=== PATIENT | male | born 1965 | race African-American/Black ===

== ENCOUNTER 2020-02-26 01:53 | Outpatient (CLI) | payer BC, SELFPAY ==
[2020-02-26 18:52] LABS: SARS-CoV-2 RNA PCR Negative
== END 2020-02-26 01:54 | disposition home or self-care (01) ==
LOC: ANHCOVIDDT 01:54
PROVIDERS: Visit Provider Internal Medicine Gastroenterology
DX: Z01.818 Encounter for other preprocedural examination (principal); Z20.828 Contact with and (suspected) exposure to other viral communicable diseases
CPT/HCPCS: 87635; C9803; U0003

== ENCOUNTER 2020-02-29 00:59 | Day surgery (SDC) | payer BC, SELFPAY ==
[2020-02-20 13:47] VITALS: BMI 20.1
--- NOTE | 2020-02-28 12:57 | WPDANESEPPF ---
Anes - Initial Pre Proc Eval Procedure: Operation Date: 02/29/20 14:30 Proposed Procedures p Screening Colonoscopy - Casa Patel MD Date/Time: 02/28/20 12:57 Surgeon: Casa Patel MD Pre Op Diagnosis: Neoplasm Screening Patient Data Age: 54 Gender: M Height: 1.78 m Weight: 63.6 kg Allergies Allergy/AdvReac Type Severity Reaction Status Date / Time No Known Allergies Allergy Verified 02/29/20 12:54 Home Medications Medication Instructions Recorded Confirmed Type acetaminophen 500 mg tablet 500 mg PO Q6H PRN 12/29/19 02/29/20 History gabapentin 300 mg capsule 300 mg PO BID #60 cap 01/26/20 02/29/20 Rx metoprolol succinate 25 mg 25 mg PO DAILY #30 tablet 01/30/20 02/29/20 Rx tablet,extended release 24 hr Patient hx anesthesia problems: none Family hx anesthesia problems: none PMFSH Past Medical History Medical History (Updated 02/28/20 @ 13:00 by Anam Crystal MD) Essential hypertension ETOH abuse Neuropathic pain Tobacco abuse Social History Social History Smoking packs per day: 1 Smoking cigarettes per day: 20.0 Years smoked: 38 Smoking pack-years: 38.00 Smoking status: Current every day smoker Tobacco type: cigarettes Alcohol intake: current Drinks per week: 50 Alcohol use details: DRINKS BEER AND HARD LIQUOR EVERYDAY Substance use: current Substance use type: marijuana Last use: USED 02/16/2020 Living arrangements: alone Gender identity (if verbalized by the patient): Male Spiritual care concerns: No Agree to blood products: Yes Anes - Eval Final PreProcedure Day of Procedure 02/28/20 12:57 Patient weight: normal Heart: regular rate and rhythm Lungs: clear to auscultation and normal air movement Airway: Mallampati scale class II Neurological: alert and oriented Last oral intake: >/= 8 hours ASA classification: III Emergent: no Anesthetic plan: proceed Anesthesia type and monitoring: general GIVS Informed Consent: The patient's anesthetic plan and its attendant risks and benefits were discussed with the patient/family/POA. Questions were solicited and answers provided to the satisfaction of the patient/family/POA.
[2020-02-29 12:56] VITALS: BP 168/86; PULSE 128; RESP 17; TEMP 36.6; O2SAT 99; BMI 20.9
[2020-02-29] MEDS: LACTATED RINGERS 1,000 ML 150 ML IV CONT (13:31)
--- NOTE | 2020-02-29 13:42 | PM.HPGS ---
History of Present Illness History of Present Illness Consent: Risks, benefits, and alternatives have been discussed and questions answered. Patient agrees to proceed with procedure. Chief complaint: Neoplasm Screening Narrative: Torsten Pardo is a 54 year old male here for first screening colonoscopy Review of Systems Constitutional: Constitutional: Denies headache(s) and Denies weakness Eyes: Eyes: Denies blurry vision ENT: Reports Normal hearing present, Denies headache(s) and Denies neck pain Cardiovascular: Cardiovascular: Denies chest pain and Denies dyspnea Respiratory: Respiratory: Denies dyspnea Gastrointestinal: Gastrointestinal: Reports no additional gastrointestinal complaints Genitourinary: Genitourinary: Denies dysuria Musculoskeletal: Musculoskeletal: Denies neck pain Integumentary/Breasts: Skin/Breast: Denies dry skin Neurologic: Reports Normal hearing present, Denies headache(s) and Denies weakness Psychiatric: Psychiatric: Denies anxiety Endocrine: Endocrine: Denies change in body appearance Hematologic/Lymphatic: Hematologic/Lymphatic: Denies easy bleeding Allergic/Immunologic: Allergic/Immunologic: Denies urticaria FOR[facility]LY [facility], [facility] Past Medical History Medical History (Updated 02/29/20 @ 13:43 by Casa Patel MD) Colon cancer screening Essential hypertension ETOH abuse Neuropathic pain Tobacco abuse Social History Social History Smoking packs per day: 1 Smoking cigarettes per day: 20.0 Years smoked: 38 Smoking pack-years: 38.00 Smoking status: Current every day smoker Tobacco type: cigarettes Alcohol intake: current Drinks per week: 50 Alcohol use details: DRINKS BEER AND HARD LIQUOR EVERYDAY Substance use: current Substance use type: marijuana Last use: USED 02/16/2020 Living arrangements: alone Gender identity (if verbalized by the patient): Male Spiritual care concerns: No Agree to blood products: Yes Meds Home Medications and Allergies Home Medications Medication Instructions Recorded Confirmed Type acetaminophen 500 mg tablet 500 mg PO Q6H PRN 12/29/19 02/29/20 History gabapentin 300 mg capsule 300 mg PO BID #60 cap 01/26/20 02/29/20 Rx metoprolol succinate 25 mg 25 mg PO DAILY #30 tablet 01/30/20 02/29/20 Rx tablet,extended release 24 hr Allergies Allergy/AdvReac Type Severity Reaction Status Date / Time No Known Allergies Allergy Verified 02/29/20 12:54 Vital Signs Vital Signs - 24 hr 02/29/20 12:56 Temperature 97.9 F Pulse Rate 128 H Respiratory Rate 17 Blood Pressure 168/86 H Pulse Oximetry 99 Exam Const: General: comfortable and no acute distress HENMT: General nose exam: Normal nares present Eyes: General: appearance normal, both eyes and all related structures Neck: Neck: no JVD Resp: Auscultation: clear to auscultation bilaterally Cardio: Rate: regular rate Rhythm: regular rhythm GI: Inspection: non-distended GI Palp: Yes Soft to palpation Skin: General skin exam: normal color Neuro: General: gait normal Speech: normal speech Extrem: General: normal to inspection Psych: Mental Status: mental status grossly normal Assessment and Plan Assessment and plan (1) Colon cancer screening: Code(s): Z12.11 - Encounter for screening for malignant neoplasm of colon Status: Acute Assessment and Plan: will proceed with colonoscopy
[2020-02-29 14:07] VITALS: BP 116/80; PULSE 112; RESP 20; O2SAT 99
[2020-02-29 14:17] VITALS: BP 126/91; PULSE 82; RESP 13; O2SAT 100
[2020-02-29 14:27] VITALS: BP 167/105; PULSE 85; RESP 14; O2SAT 100
== END 2020-02-29 15:04 | disposition home or self-care (01) ==
PROVIDERS: PCP Internal Medicine; Visit Provider Internal Medicine Gastroenterology
PROC: 0DJD8ZZ Inspection of Lower Intestinal Tract, Via Natural or Artificial Opening Endoscopic (ICD-10-PCS; CPT 45378; principal; 2020-02-29 14:30)
DX: Z12.11 Encounter for screening for malignant neoplasm of colon (principal); K57.30 Diverticulosis of large intestine without perforation or abscess without bleeding; K64.8 Other hemorrhoids; I10 Essential (primary) hypertension; F17.210 Nicotine dependence, cigarettes, uncomplicated; F12.90 Cannabis use, unspecified, uncomplicated
CPT/HCPCS: 45378; J2704; J7120

== ENCOUNTER 2020-07-26 11:20 | Outpatient (CLI) | payer BC, SELFPAY ==
--- NOTE | ~2020-07-26 | CT_ITS ---
EXAMINATION: CT lung screening DATE: 07/26/2020 11:55 INDICATION: Personal history of tobacco dependence, current smoker with 38 pack year history TECHNIQUE: Computed tomography (CT) of the chest was performed without intravenous contrast. The dose -length product (DLP) was 72.23 mGy-cm. Automated exposure control and iterative reconstruction techn ique were employed. COMPARISON: None FINDINGS: There is a 2.8 x 2.7 cm spiculated nodule of the lingula. There is mild emphysema. There is no pleural effusion or pneumothorax. No pathologically enlarged thoracic lymph nodes are identified. The heart size is normal. The visualized osseous structures are unremarkable. IMPRESSION: 1. Lung-RADS category 4B: Findings for which additional diagnostic testing and/or tissue sampling is recommended. These findings and recommendations were discussed with Gabe Campos APRN at 1440 hours on 07/27/19 21. Reviewed, dictated and finalized at location A. IMPRESSION: 1. Lung-RADS category 4B: Findings for which additional diagnostic testing and/ or tissue sampling is recommended. These findings and recommendations were discussed with Gabe Campos APRN a t 1440 hours on 07/26/2020.
[2020-07-26 12:12] LABS: Basophils Absolute Auto 0.1 K/mm3 (0.0-0.1); Basophils Percent Auto 1.4 % (0.2-1.2); Eosinophils Absolute Auto 0.1 K/mm3 (0-0.3); Eosinophils Percent Auto 0.8 % (0-4.4); Hematocrit 41.6 % (42.0-52.0); Hemoglobin 14.3 g/dL (14.0-18.0); Immature Granulocyte Absolute 0.03 K/mm3 (0.00-0.031); Immature Granulocyte Percent A 0.5 % (0-0.5); Lymphocytes Percent Auto 46.2 % (18.3-44.2); Mean Corpuscular HGB Conc 34.4 g/dl (32-36); Mean Corpuscular Hemoglobin 37.9 pg (26-34); Mean Corpuscular Volume 110.3 fl (80-100); Mean Platelet Volume 8.9 fl (7.4-10.4); Monocytes Absolute Auto 0.6 K/mm3 (0.1-0.6); Monocytes Percent Auto 8.5 % (2.6-8.5); Neutrophils Absolute Auto 2.8 K/mm3 (1.3-6.7); Neutrophils Percent Auto 42.6 % (45.5-73.1); Platelet Count Result 156 k/mm3 (150-375); Red Blood Count 3.77 M/mm3 (4.6-6.20); White Blood Count 6.5 K/mm3 (4.5-10.0)
[2020-07-26 12:35] LABS: LDL Cholesterol Direct 59 mg/dL
[2020-07-26 12:37] LABS: Alanine Aminotransferase 95 U/L (4-50); Albumin Level 4.2 g/dL (3.5-5.1); Alkaline Phosphatase 128 U/L (38-126); Anion Gap 11 mmol/L (8-16); Aspartate Amino Transferase 111 U/L (17-59); Bilirubin,Total 0.5 mg/dL (0.2-1.3); Blood Urea Nitrogen 3 mg/dL (9-20); Calcium 9.6 mg/dL (8.4-10.2); Carbon Dioxide 24 mmol/L (22-30); Chloride 104 mmol/L (98-107); Cholesterol 194 mg/dL (0-200); Estimated Glomerular Filt Rate > 60; Glucose 97 mg/dL (75-110); Potassium 4.2 mmol/L (3.4-5.0); Sodium 139 mmol/L (137-145); Triglycerides 95 mg/dL (<150)
[2020-07-26 12:55] LABS: Prostate Specific Antigen 1.4 ng/mL (< OR = 4.0)
[2020-07-26 12:58] LABS: HDL Direct 120 mg/dL
== END 2020-07-26 11:21 | disposition home or self-care (01) ==
PROVIDERS: PCP Internal Medicine; Visit Provider Nurse Practitioner
DX: M79.2 Neuralgia and neuritis, unspecified (principal); F10.10 Alcohol abuse, uncomplicated; I10 Essential (primary) hypertension; R00.0 Tachycardia, unspecified; Z13.220 Encounter for screening for lipoid disorders; Z12.5 Encounter for screening for malignant neoplasm of prostate; Z87.891 Personal history of nicotine dependence; R91.8 Other nonspecific abnormal finding of lung field
CPT/HCPCS: 36415; 71271; 80053; 80061; 82607; 84153; 84443; 85025; G0103

== ENCOUNTER 2020-08-01 10:43 | Outpatient (CLI) | payer BC, SELFPAY ==
--- NOTE | ~2020-08-01 | PE_ITS ---
EXAMINATION: PET skull to mid thigh DATE: 08/01/2020 12:43 INDICATION: Solitary pulmonary nodule TECHNIQUE: Blood glucose level was 61 mg/dL. 10.197 mCi of 18-fluorodeoxyglucose (18-FDG) was adminis tered i.v. Low dose computed tomography (CT) images were acquired from the base of the brain to the p roximal thighs for attenuation correction and anatomic localization. Positron emission tomography (PE T) images were acquired in the same distribution beginning 52 minutes after injection. Images includi ng fused PET/CT images were reconstructed in axial, coronal, and sagittal planes. Automated exposure control technique was employed. The dose-length product was 374.70mGy-cm. COMPARISON: Chest CT dated 08/05/2020 FINDINGS: Head/neck: There is symmetric increased activity in the oral cavity, palatine tonsils, laryngeal muscles and ocu lar muscles without CT correlate, likely physiologic. No pathologically enlarged cervical lymphadenop athy or suspicious foci of increased FDG uptake in the visualized head or neck. Chest: Mild emphysema. Moderate increased FDG uptake with maximal SUV of 4.9 and associated with a 2.9 x 1.9 cm spiculated mass at the lingula. Remainder of the lungs are clear. No pleural effusion. Heart size is normal. No pericardial effusion. Thoracic aorta is normal in caliber. No pathologically enlarged or FDG avid thoracic lymphadenopathy. Abdomen/pelvis/proximal thighs: Physiologic renal accumulation and excretion of FDG activity in the kidneys, bladder and along portio ns of ureters. Normal degree and heterogenous pattern of increased uptake throughout the liver withou t radiologic correlate or dominant FDG avid lesion. The gallbladder, pancreas, spleen and bilateral a drenal glands are normal. Mild uptake scattered throughout the bowels without radiologic correlate, a lso likely physiologic. No other abnormal foci of increased FDG uptake or pathologically enlarged lym phadenopathy in the abdomen, pelvis or proximal thighs. Musculoskeletal: Chronic mild anterior wedging at T11 and T12. No suspicious lytic, blastic or FDG avid bone lesions. IMPRESSION: 1. Moderate FDG uptake associated with a 2.9 x 1.9 cm spiculated mass at the lingula which could be m alignant, infectious or inflammatory in etiology. Recommend CT-guided percutaneous biopsy. 2. Otherwise unremarkable study with no evident metastatic disease. Reviewed, dictated and finalized at location A. IMPRESSION: 1. Moderate FDG uptake associated with a 2.9 x 1.9 cm spiculated mass at the li ngula which could be malignant, infectious or inflammatory in etiology. Recomme nd CT-guided percutaneous biopsy. 2. Otherwise unremarkable study with no evident metastatic disease.
[2020-08-01 11:05] LABS: Glucose Point of Care 61 (65-105)
== END 2020-08-01 10:44 | disposition home or self-care (01) ==
PROVIDERS: PCP Internal Medicine; Visit Provider Nurse Practitioner
DX: R91.1 Solitary pulmonary nodule (principal); Z72.0 Tobacco use
CPT/HCPCS: 78815; 82948; A9552

== ENCOUNTER → 2020-08-03 03:38 | Outpatient (CLI) | payer BC, SELFPAY ==
[2020-08-03 19:43] LABS: SARS-CoV-2 RNA PCR Negative
== END ==
PROVIDERS: PCP Internal Medicine; Visit Provider Nurse Practitioner
DX: Z01.812 Encounter for preprocedural laboratory examination (principal); Z20.822 Contact with and (suspected) exposure to COVID-19
CPT/HCPCS: C9803; U0003; U0005

== ENCOUNTER → 2020-08-10 01:45 | Outpatient (CLI) | payer BC, SELFPAY ==
[2020-08-10 19:56] LABS: SARS-CoV-2 RNA PCR Negative
== END ==
PROVIDERS: PCP Internal Medicine; Visit Provider Nurse Practitioner
DX: Z01.812 Encounter for preprocedural laboratory examination (principal); Z20.822 Contact with and (suspected) exposure to COVID-19
CPT/HCPCS: C9803; U0003; U0005

== ENCOUNTER 2020-08-13 09:58 | Outpatient (CLI) | payer BC, SELFPAY ==
[2020-08-05 09:39] VITALS: BMI 21.5
--- NOTE | ~2020-08-13 | CT_ITS ---
EXAMINATION: CT diagnostic chest wo con DATE: 08/13/2020 14:59 INDICATION: FOLLOW UP LEFT LUNG MASS TECHNIQUE: Computed tomography (CT) of the chest was performed without intravenous contrast as part o f formulation chemist imaging for a planned CT-guided percutaneous left lung biopsy. Given the improvement in the n odule since the prior study and infection etiology was favored and the planned biopsy was deferred. I discussed this with the patient as well as the ordering nurse practitioner Gabe Campos. The dose-l ength product was 149 mGy-cm. COMPARISON: 08/05/2020 FINDINGS: Significant interval decrease in size of a previously 3.3 x 2.4 x 2.4 cm spiculated subpleural mass i n the lingula. The lesion now has a more thickened bandlike configuration which measures up to jack l of 9 mm in thickness and now spares the immediate subpleural lung. The interval improvement would b e most consistent with an infectious or inflammatory etiology and the planned biopsy was deferred. Mi nimal dependent atelectasis in the bilateral lower lobes. Mild emphysema. Heart size is normal. No pe ricardial or pleural effusion. Visualized bones and upper abdomen are unremarkable. IMPRESSION: 1. Significant decrease in size of the previously more masslike opacity at the lingula now appearing as a thinner bandlike opacity with interval evolution strongly favoring an infectious/inflammatory et iology. Planned biopsy was deferred and would recommend additional 3 month follow-up low-dose noncont rast chest CT. Reviewed, dictated and finalized at location A. IMPRESSION: 1. Significant decrease in size of the previously more masslike opacity at the lingula now appearing as a thinner bandlike opacity with interval evolution str ongly favoring an infectious/inflammatory etiology. Planned biopsy was deferred and would recommend additional 3 month follow-up low-dose noncontrast chest CT .
[2020-08-13 10:20] LABS: Basophils Absolute Auto 0.1 K/mm3 (0.0-0.1); Basophils Percent Auto 0.9 % (0.2-1.2); Eosinophils Percent Auto 0.6 % (0-4.4); Hemoglobin 13.2 g/dL (14.0-18.0); Immature Granulocyte Absolute 0.02 K/mm3 (0.00-0.031); Immature Granulocyte Percent A 0.3 % (0-0.5); Lymphocytes Absolute Auto 2.32 K/mm3 (0.9-3.2); Lymphocytes Percent Auto 35.3 % (18.3-44.2); Mean Corpuscular HGB Conc 34.7 g/dl (32-36); Mean Corpuscular Hemoglobin 37.5 pg (26-34); Mean Platelet Volume 9.2 fl (7.4-10.4); Monocytes Absolute Auto 0.8 K/mm3 (0.1-0.6); Monocytes Percent Auto 11.6 % (2.6-8.5); Neutrophils Absolute Auto 3.4 K/mm3 (1.3-6.7); Neutrophils Percent Auto 51.3 % (45.5-73.1); Platelet Count Result 175 k/mm3 (150-375); Red Blood Count 3.52 M/mm3 (4.6-6.20); Red Cell Distribution Width 12.4 % (11.5-14.5); White Blood Count 6.6 K/mm3 (4.5-10.0)
[2020-08-13 10:30] LABS: INR 0.9
== END 2020-08-13 09:59 | disposition home or self-care (01) ==
PROVIDERS: Radiology Diagnostic Radiology; PCP Internal Medicine; Visit Provider Nurse Practitioner
DX: R91.1 Solitary pulmonary nodule (principal)
CPT/HCPCS: 36415; 71250; 85025; 85610

== ENCOUNTER 2020-10-10 09:27 | Outpatient (CLI) | payer BC, SELFPAY ==
--- NOTE | 2020-10-10 11:00 | NEURO_ITS ---
Impression: # Complains of numbness of lower extremities. # Normal nerve conduction study except extra strength required to stimulate. # Normal needle/EMG exam. # Clinical correlation recommended. Nerve Conduction Studies Anti Sensory Summary Table Stim Site NR Peak (ms) P-T Amp (?V) Site1 Site2 Delta-P (ms) Dist (cm) [place] (m/s) Left Sup Fibular Anti Sensory (Ant Lat Mall) 14 cm 3.3 16.2 14 cm Ant Lat Mall 3.3 16.0 48 Right Sup Fibular Anti Sensory (Ant Lat Mall) 14 cm 3.9 19.7 14 cm Ant Lat Mall 3.9 16.0 41 Left Sural Anti Sensory (Lat Mall) Calf 3.6 10.7 Calf Lat Mall 3.6 16.0 44 Right Sural Anti Sensory (Lat Mall) Calf 3.8 11.4 Calf Lat Mall 3.8 16.0 42 Motor Summary Table Stim Site NR Onset (ms) O-P Amp (mV) Site1 Site2 Delta-0 (ms) Dist (cm) [place] (m/s) Left Peroneal Motor (Vastus Med) Ankle 4.1 3.5 Popit Ankle 9.8 44.0 45 Popit 13.9 2.5 Right Peroneal Motor (Vastus Med) Ankle 4.2 3.3 Popit Ankle 9.5 40.0 42 Popit 13.7 3.1 Left Tibial Motor (Abd Rao Brev) Ankle 5.0 5.9 Knee Ankle 10.2 43.0 42 Knee 15.2 2.6 Right Tibial Motor (Abd Rao Brev) Ankle 4.8 5.0 Knee Ankle 10.7 44.0 41 Knee 15.5 2.6 F Wave Studies NR F-Lat (ms) L-R F-Lat (ms) Left Peroneal (Mrkrs) (EDB) 55.35 0.79 Right Peroneal (Mrkrs) (EDB) 56.13 0.79 Left Tibial (Mrkrs) (Abd Hallucis) 57.19 0.32 Right Tibial (Mrkrs) (Abd Hallucis) 57.51 0.32 EMG Side Muscle Nerve Root Ins Act Fibs Amp Dur Recrt Comment Right AntTibialis Dp Br Fibular L4-5 Nml Nml Nml Nml Nml Right Gastroc Tibial S1-2 Nml Nml Nml Nml Nml Right Fibularis Long Sup Br Fibular L5-S1 Nml Nml Nml Nml Nml Right Flex Dig Long Tibial L5-S2 Nml Nml Nml Nml Nml Right Ext Dig Brev Dp Br Fibular L5, S1 Nml Nml Nml Nml Nml Left AntTibialis Dp Br Fibular L4-5 Nml Nml Nml Nml Nml Left Gastroc Tibial S1-2 Nml Nml Nml Nml Nml Left Fibularis Long Sup Br Fibular L5-S1 Nml Nml Nml Nml Nml Left Flex Dig Long Tibial L5-S2 Nml Nml Nml Nml Nml Left Ext Dig Brev Dp Br Fibular L5, S1 Nml Nml Nml Nml Nml Right QuadratusFem QuadFemoris L4-5, S1 Nml Nml Nml Nml Nml Left QuadratusFem QuadFemoris L4-5, S1 Nml Nml Nml Nml Nml MTDD
== END 2020-10-10 09:28 | disposition home or self-care (01) ==
PROVIDERS: PCP Internal Medicine; Visit Provider Nurse Practitioner
DX: R52 Pain, unspecified (principal)
CPT/HCPCS: 95886; 95910

== ENCOUNTER 2021-07-28 13:47 | Outpatient (CLI) | payer BC, SELFPAY ==
--- NOTE | ~2021-07-28 | CT_ITS ---
EXAMINATION: CT diagnostic chest wo con DATE: 07/28/2021 14:17 INDICATION: Solitary pulmonary nodule follow-up. Smoking history. TECHNIQUE: Computed tomography (CT) of the chest was performed without intravenous contrast. Automate d exposure control and iterative reconstruction technique were employed. Exam dose: 156.82 mGy-cm to sita exam DLP. COMPARISON: 08/13/2020 CT chest: Significant decreased size of lingular opacity since 08/13/2020, sugge sting infectious or inflammatory etiology; lingular biopsy was deferred 08/01/2020 PET/CT scan 07/26/2020 CT lung screenin.8 x 2.7 cm spiculated lingular nodule and mild emphysema FINDINGS: There is further decreased size of previously reported lingular opacity with minimal residu al linear atelectasis or scarring, progressively diminished and nearly completely resolved since 2020. This is most consistent with nearly resolved benign infectious or inflammatory process. Minimal bilateral apical scarring. Mild emphysematous changes of the lungs. No pulmonary infiltrate or consolidation or pulmonary mass lesion is noted. Normal heart size. No hilar or mediastinal mass lesion or lymphadenopathy is evident. No thoracic aor tic aneurysm. No pericardial or pleural effusion. Normal morphology of the adrenal glands. No suspicious osteolytic or osteoblastic lesions. IMPRESSION: Nearly complete resolution of lingular opacities since 07/26/2020, consistent with benign infectious or inflammatory process. No further evaluation or follow-up of the lingular finding is req uired. Continued CT lung screening is recommended. Reviewed, dictated and finalized at Location A. Reviewed, dictated and finalized at location B. IMPRESSION: Nearly complete resolution of lingular opacities since 07/26/2020, c onsistent with benign infectious or inflammatory process. No further evaluation or follow-up of the lingular finding is required. Continued CT lung screening is recommended.
== END 2021-07-28 13:48 | disposition home or self-care (01) ==
PROVIDERS: PCP Internal Medicine; Visit Provider Nurse Practitioner
DX: R91.1 Solitary pulmonary nodule (principal)
CPT/HCPCS: 71250

== ENCOUNTER 2024-01-18 14:42 | Outpatient (CLI) | payer OTHER, SELFPAY ==
--- NOTE | ~2024-01-18 | XR_ITS ---
EXAMINATION: XR lumbar spine 6V w bending DATE: 01/18/2024 15:15 INDICATION: Low back pain, unspecified. TECHNIQUE: 7 views of lumbar spine including flexion and extension views were obtained. COMPARISON: None. FINDINGS: Alignment is normal. The spine is hypomobile with flexion and extension. There is mild founding partner candice anterior wedging of T11 and T12 vertebral bodies, likely physiologic. The intervertebral disc hei ghts are normal. There are endplate osteophytes at multiple levels. There is multilevel havl-lw-sktue ate facet joint osteoarthritis. IMPRESSION: 1. Mild lumbar spondylosis. Reviewed, dictated and finalized at location B. IMPRESSION: 1. Mild lumbar spondylosis.
--- NOTE | ~2024-01-18 | XR_ITS ---
AP view of the pelvis and AP and lateral views of the bilateral hips Clinical history: Pain Findings: No acute fracture or dislocation is seen. Osseous alignment is anatomic. Bilateral hip and SI joint spaces are preserved. Soft tissues are unremarkable. Impression: No significant abnormality is seen. Reviewed, dictated and finalized at location . Impression: No significant abnormality is seen.
== END 2024-01-18 14:43 | disposition home or self-care (01) ==
PROVIDERS: PCP Internal Medicine; Visit Provider Anesthesiology Pain Medicine
DX: M54.50 Low back pain, unspecified (principal); M47.817 Spondylosis without myelopathy or radiculopathy, lumbosacral region; M25.559 Pain in unspecified hip
CPT/HCPCS: 72114; 73521

== ENCOUNTER 2024-04-05 11:50 | Outpatient (CLI) | payer OTHER, MEDICAID, SELFPAY ==
--- NOTE | 2024-04-05 12:08 | ECG_ITS ---
Test Date: 2024-04-05 12:18:35 Measurements Intervals [place] Rate: 107 P: 46 [place]: 136 QRS: 57 QRSD: 87 T: 82 QT: 328 QTc: 439 Interpretive Statements SINUS TACHYCARDIA No previous ECG available for comparison Electronically Signed On 04-05-2024 14:36:58 HAM BONER by Pat Jacques M.D.
== END 2024-04-05 11:51 | disposition home or self-care (01) ==
PROVIDERS: PCP Internal Medicine; Visit Provider Internal Medicine
DX: R00.0 Tachycardia, unspecified (principal)
CPT/HCPCS: 93005

== ENCOUNTER 2024-04-06 14:30 | Outpatient (RCR) | payer OTHER, MEDICAID, SELFPAY ==
--- NOTE | 2024-01-31 12:08 | OPREHPOC ---
Outpatient Therapy Plan of Care This is a Multidisciplinary Plan of Care that may contain components documented by all disciplines (PT, OT, and ST.) PT Problem 1 PT Problem #1 Knowledge Deficit PT Goal 1 Goal / Goal Update [place] with HEP Target Visit 4 PT Goal 2 Goal / Goal Update Improve Tinetti score by 5 points to reduce fall risk and improve functional stability Target Visit 8 PT Problem 2 PT Problem #2 Impaired Strength PT Goal 1 Goal / Goal Update Improve debra hip flexion strength to 4+/5 to improve foot clearance with gait and reduce falls Target Visit 8 PT Goal 2 Goal / Goal Update Improve debra hip abduction strength o 4+/5 to improve lateral stability with gait and transfer activity to reduce falls Target Visit 8 PT Problem 3 PT Problem #3 Impaired Gait PT Goal 1 Goal / Goal Update Improve 2 minute walk test by 50 feet to reflect reduced fall risk through improved gait speed indicators Target Visit 8
--- NOTE | 2024-01-31 12:09 | PTOPEVAL1 ---
Assessment and note entered by Ean Fairchild, PT Evaluation Information Assessment Status Evaluation ICD-10 Condition Codes (PT) R26.9 Onset 2020 Subjective Information Reports that he has noticed an increased incidence of falls over the past couple of years. Most recent fall was last week. Does not fell that he injured anything this time. He has been using a cane for a couple of years. Reports that he has degenerative arthritis in his back, knees, and hips. Pain is fairly constant and increases when he over exerts himself. He has stairs in his house but he never uses them for safety reasons. Pain is mostly in his hips at this time and was told that this is where the arthritis is worst. He will occasionally get shooting pain down the left leg. Reported Pain Level Pain Score 2: Self Report Assessment PT Clinical Summary Patient presents with signs and symptoms consistent with hip OA and spinal stenosis. Presents as high fall risk on Tinetti scale. Has very weak lateral and posterior hips and decrease of activity in home. Patient will benefit from skilled therapy to address these deficits for gross mechanical strengthening and stability improvement moving forward. Plan of Care Interventions Electrical Stimulation,Gait Training,Hot Pack/Cold Pack,Manual Therapy,Neuro Re-education, Therapeutic Activities,Therapeutic Exercise PT Services Indicated Yes Treatment Frequency and 2x/week for 8 visits Duration These treatments will address the objective and functional deficits as defined above. The patient will be advanced safely and appropriately in order for the patient to progress towards his/her prior level of function. Additional exercises will be introduced and as well as a comprehensive home exercise program upon discharge, if needed, ?to ensure carryover of functional gains achieved in the clinic. This treatment plan has been reviewed and agreement upon by the patient.
--- NOTE | 2024-04-06 15:27 | PTOPPROG ---
Assessment and note entered by Ean Fairchild, PT Evaluation Information Assessment Status Progress ICD-10 Condition Codes (PT) Abnormalities of gait and mobility R26.9 Onset 2020 Subjective Information Reports that he has been in [place] for the last 6 weeks which is why he has not been in therapy. She had 16 steps which he had to do consistently every day. Reports that he did have 1 fall while he was there. He was trying to squeeze and shift through a small space when he did it. He has been using a cane in the right hand consistently for ambulation. He does feel like his balance gets worse when he closes his eyes. Assessment PT Clinical Summary Patient has seen progress from the initial evaluation although he has been absent from therapy. It would appear that he has been very functionally active which is excellent to hear as he had some concerning functional deficits at initial evaluation and extensive fall history. Will benefit form skilled therapy to emphasize LE conditioning and balance. Plan of Care Interventions Electrical Stimulation,Gait Training,Hot Pack/Cold Pack,Manual Therapy,Neuro Re-education, Therapeutic Activities,Therapeutic Exercise PT Services Indicated Yes Treatment Frequency and 1x/week for 6 visits Duration These treatments will address the objective and functional deficits as defined above. The patient will be advanced safely and appropriately in order for the patient to progress towards his/her prior level of function. Additional exercises will be introduced and as well as a comprehensive home exercise program upon discharge, if needed, ?to ensure carryover of functional gains achieved in the clinic. This treatment plan has been reviewed and agreement upon by the patient.
--- NOTE | 2024-04-10 11:49 | PCPTNOTE ---
Patient no showed appointment this date. Called patient to check in but patient's voicemail is full and was unable to leave a message.
--- NOTE | 2024-04-12 15:15 | PCPTNOTE ---
Pt no called no showed appt today.
== END 2024-04-30 23:59 | disposition home or self-care (01) ==
LOC: ANHPT 14:30
PROVIDERS: PCP Internal Medicine; Visit Provider Internal Medicine
DX: R26.89 Other abnormalities of gait and mobility (principal)
CPT/HCPCS: 97110; 97140; 97161

== ENCOUNTER 2024-04-17 13:38 | Outpatient (CLI) | payer OTHER, MEDICAID, SELFPAY ==
--- NOTE | ~2024-04-17 | US_ITS ---
EXAM: Focused ultrasound examination of the soft tissues of the nasal bridge HISTORY: Palpable abnormality within the left medial nasal bridge TECHNIQUE: Sonographic evaluation of the soft tissues of the nasal bridge were performed assessing gr ayscale appearance and color Doppler flow. COMPARISON: None. FINDINGS: Within the area of clinical concern is a well-circumscribed avascular focus of mixed echogenicity shawnee suring 22 x 14 x 21 mm. Sonographically, this focus is most consistent with a sebaceous cyst, for whi ch clinical correlation is needed. Sonographic evaluation of the remainder of the soft tissues of the nasal bridge demonstrate benign fi brous elements without a cystic or solid lesion of concern. IMPRESSION: Well-circumscribed avascular focus of mixed echogenicity within the area of clinical concern which ma y represent a sebaceous cyst. Reviewed, dictated and finalized at location [facility]. [facility] IMPRESSION: Well-circumscribed avascular focus of mixed echogenicity within the area of cli nical concern which may represent a sebaceous cyst.
--- OUTSIDE RECORDS SUMMARY | 2024-04-17 14:25 | XMS_ITS ---
Author Organization [facility] Address [address] [place] [address] Phone Care Team Providers Care Dean Name Role Phone SABRINA BRYSON PA-C Primary Care Provider [phone] Plan of Treatment No Plan of Treatment Recorded Assessments Includes: Assessments for all patient encounters Findings Encounter Date Alcohol dependence uncomplicated PAIN MA NAGEMENT NEW CONSULT with MEGGAN CRAWFORD 10/20/2022 Last Documented On 3 11:58AM ; [facility] Chronic pain syndrome PAIN MANAGEMENT NE W CONSULT with MEGGAN CRAWFORD 10/20/2022 Last Documented On 3 11:58AM ; [facility] Lumbar spondylosis with radiculopathy PA IN MANAGEMENT NEW CONSULT with MEGGAN CRAWFORD 10/20/2022 Last Documented On 3 11:58AM ; [facility] Lumbar stenosis with neuroge candice claudication PAIN MANAGEMENT NEW CONSULT with MEGGAN CRAWFORD 10/20/2022 Last Documented On 3 11:58AM ; [facility] Medical Equipment - Implanted Devices Includes: Current and historical Devices No Medical Equipment Recorded Medications Includes: Current and historical Medications Current Medications (continue as prescribed) ALPRAZolam 0.5 MG Oral Tablet 11/10/2022 Provider: MEGGAN CRAWFORD Diagnosis: as directed 1 po 1 hour prio r to procedure, 1 po 30 minutes prior to procedure Last Documented On 3 11:36AM By MEGGAN CRAWFORD ; [facility] Tylenol Extra Strength 500 MG Oral Tablet 10/20/2022 Provider: Diagnosis: Last Documented On 3 11:09AM By Nova HOOVER ; [facility] Lidocaine 5% External Patch 10/20/2022 Provider: MEGGAN CRAWFORD Diagnosis: Spinal stenosis, lumbar region with neurogenic claudication as directed apply patch to a ffected area for 12 hours and remove for 12 hours Last Documented On 3 11:51AM By MEGGAN CRAWFORD ; [facility] Pregabalin 100 MG Oral Capsule 09/21/2022 Provider: SABRINA BRYSON PA-C Diagnosis: Last Documented On 3 10:48AM By Nova HOOVER ; [facility] Metoprolol Tartrate 50 MG Oral Tablet 09/21/2022 Pro vider: SABRINA BRYSON PA-C Diagnosis: Last Documented On 3 10:49AM By Nova HOOVER ; [facility] Past Medications on file Gabapentin 400 MG Oral Capsule 06/08/2022 - 10/20/2022 Provider: JANNIE CORLEY DO Diagnosis: Last Documented On 3 11:09AM By Nova HOOVER ; [facility] Medications Administered Includes: Administered Medications in patient's chart No Administered Medications Recorded Results Includes: Results from 04/17/2023 through 04/17/2024 No Results Recorded For Specified Dates History of Present Illness History of Present Illness not supported for this document type No History of Present Illness Recorded Social History Description Last Updated Current smoker 10/20/2022 Last Documented On 3 11:58AM ; [facility] Alcohol 10/20/2022 Last Documented On 3 11:58AM ; [facility] Amount of alcohol per day: 3-4 3 Last Documented On 3 11:58AM ; [facility] Difficulty walking 10/20/2022 Last Documented On 3 11:58AM ; [facility] Not using drugs 10/20/2022 Last Documented On 3 11:58AM ; [facility] Smoking packs of cigarettes per day 1 Last Documented On 3 11:58AM ; [facility] Smoking Status Unknown Procedures and Surgical History Surgical History Last Updated No Pacemaker 10/20/2022 Last Documented On 3 11:58AM ; [facility] Medical History Includes: Medical History in patient's chart Description Last Updated Currently wearing eyeglasses 10/20/2022 Last Documented On 3 11:58AM ; [facility] Moderate to severe pain 10/20/2022 Last Documented On 3 11:58AM ; [facility] No Pain Pump 10/20/2022 Last Documented On 3 11:58AM ; [facility] No Spinal cord stimulator 10/20/2022 Last Documented On 3 11:58AM ; [facility] Uses a cane for support 10/20/2022 Last Documented On 3 11:58AM ; [facility] Family History Includes: Family History in patient's chart Description Last Updated Family history of Arthritis 10/20/2022 Last Documented On 3 11:58AM ; [facility] Paternal history of family history of is chemic heart disease 10/20/2022 Last Documented On 3 11:58AM ; [facility] Paternal history of stroke/paralysis 03/2022 Last Documented On 3 11:58AM ; [facility] Review of Systems Review of Systems not supported for this document type No Review of Systems Recorded Mental Status No Mental Status Recorded Functional Status No Functional Status Recorded Physical Exam Physical Exam not supported for this document type No Physical Exam Recorded Allergies Includes: Active, inactive, and resolved Allergies No Known Allergies Insurance Includes: Active Insurance Policies Plan Name Member ID Group # Subscriber Relationship Effect sirisha Dates 1 - [facility] [id number] RIO Guerrero Clinical Notes Includes: Signed Clinical Notes starting from 04/10/2022 No Clinical Notes Recorded
--- OUTSIDE RECORDS SUMMARY | 2024-04-17 14:25 | XMS_ITS | Clinical Summary ---
Author Organization [facility] Address [address] [place] [address] Phone Care Team Providers Care Retail Pharmacy Manager Name Role Phone SABRINA BRYSON PA-C Primary Care Provider [phone] Reason for Visit and Chief Complaint The Chief Complaint is: REFERRED BY SABRINA BRYSON FOR OTHER CHRONIC PAIN Plan of Treatment Pending Tests Order Diagnosis Results Due Ordering P rovider Pain Management CPT - Epidural Steroid Inj Transforaminal, Lumbar or Sacral 1st level Spinal stenosis, lumbar region with neurogenic claudication 11/19/22 MEGGAN ARREAGA ANP-BC Last Documented On 9:46AM ; [facility] Assessments Includes: Assessments from this encounter Findings - Lumbar spondylosis with radiculopathy [M47.26 - Other spondylosis with radiculopathy, lumbar region] - Last Documented On 10/20/2022 11:58AM ; [facility] - Lumbar stenosis with neurogenic claudication [M48.062 - Spinal stenosis, lumbar region with neurogenic claudication] - Last Documented On 10/20/2022 11:58AM ; [facility] - Alcohol dependence uncomplicated [F10.20 - Alcohol dependence, uncomplicated] - Last Documented On 10/20/2022 11:58AM ; [facility] - Chronic pain syndrome [G89.4 - Chronic pain syndrome] - Last Documented On 10/20/2022 11:58AM ; [facility] Medical Equipment - Implanted Devices Includes: Current Devices No Medical Equipment Recorded Medications Includes: Medications discussed during this encounter and other current Medications Discontinued / Stopped on this date JANNIE CORLEY DO on 06/08/2022 Gabapentin 400 MG Oral Capsule Provider: JANNIE CORLEY DO Diagnosis: Last Documented On 3 11:09AM By Nova HOOVER ; [facility] New / Renewed during this visit MEGGAN CRAWFORD on 10/20/2022 Lidocaine 5% External Patch Provider: MEGGAN CRAWFORD 30 day supply: 30 patch, 2 refills Diagnosis: Spinal stenosis, lumbar region with neurogenic claudication as directed apply patch to a ffected area for 12 hours and remove for 12 hours Pharmacy: [facility] ([facility]) - [address], [phone] - Last Documented On 3 11:51AM By MEGGAN CRAWFORD ; [facility] Current Medications (continue as prescribed) ALPRAZolam 0.5 MG Oral Tablet 11/10/2022 Provider: MEGGAN CRAWFORD Diagnosis: as directed 1 po 1 hour prio r to procedure, 1 po 30 minutes prior to procedure Last Documented On 3 11:36AM By MEGGAN CRAWFORD ; [facility] Tylenol Extra Strength 500 MG Oral Tablet 10/20/2022 Provider: Diagnosis: Last Documented On 3 11:09AM By Nova HOOVER ; [facility] Pregabalin 100 MG Oral Capsule 09/21/2022 Provider: SABRINA BRYSON PA-C Diagnosis: Last Documented On 3 10:48AM By Nova HOOVER ; [facility] Metoprolol Tartrate 50 MG Oral Tablet 09/21/2022 Pro vider: SABRINA BRYSON PA-C Diagnosis: Last Documented On 3 10:49AM By Nova HOOVER ; [facility] Medications Administered Includes: Administered Medications from this encounter No Administered Medications Recorded Vital Signs Includes: Vital Signs from this encounter Vital Name 10/20/2022 11:02A Blood Pressure Sitting L 150/86 Pulse Rate-Sitting (bpm) 74 Temp-Temporal 96.2 Height (in) 70 Weight (lb) 126 Body Mass Index 18.1 Body Surface Area 1.7 Pain Level 6 Oxygen Saturation (%) 99 Last Documented: On 10/20/2022 11:06A M ; [facility] Results Includes: Results discussed during this encounter No Results Recorded For Specified Dates History of Present Illness Includes: History of Present Illness from this encounter HPI - Allergy list reviewed - Problem list reviewed - Medication reconciliation performed - Medication list reviewed - Prescription Drug Monitoring Program website checked. - Last dose of medication? - Pain is continuous - Primary pain location Lo back and hips - Primary pain duration Chronic - Secondary pain duration Always - Secondary pain location Lower legs - Relieved by repositioning - Pain aggravated getting in/out of car - Pain aggravated going up stairs - Pain aggravated lying down - Pain aggravated sitting - Pain aggravated standing - Pain aggravated when out of chair - Pain aggravated by walking - Pain aggravated lifting - Pain aggravated bending - Groin pain radiating to right side - Pain radiates to Genitals - Pain radiates in both feet Discussion: Patient is a 57-year-old male, with long-standing history of alcoholism, referred for evaluation and treatment. He describes chronic low back pain for 20 plus years, tolerable until the last 2-3 years. Pain has progressively worsened and limits his everyday activities. He describes low back pain with electrical sensation into right lower extremity intermittently, mainly when he is active, lifting or twists too quickly. Pain also worsens with standing and flexion. He reports the most relief comes from laying flat. Because of this, he has become sedentary due to pain. He reports a few falls, nothing in last 6 months. He notes feeling dizziness at times, but questions if this is the alcohol or medication. Discussed both or the combination could be causing this symptom. He completed 6-8 weeks of therapy approximately 1 year ago and noted increased in strength, but pain didn't change. He continues home exercises on a daily basis. He reports tramadol by previous pcp, usually twice per day, but new pcp is not eager to continue this medication without seeing pain management (per patient). I'm not sure this is the best idea with current alcohol consumption daily. Switching from gabapentin to pregabalin has helped with leg pain some. Nerve study recently done at [facility], we will obtain this test. Otherwise, imaging reviewed and recommend bilateral lumbar epidural for low back pain as well as neurogenic claudication symptoms. I have fully answered his questions today. We did discussed alcohol cessation. Patient voice concerned regarding rapid weight loss over the last year. Encouraged him to speak with his PCP. Imaging: All relevant imaging available was personally reviewed with the patient today with the following tests and results noted: MRI L spine 08/24/22: L4-5 broad-based posterior disc bulge. Ligamentum flavum hypertrophy. Mild bilateral neural foraminal stenosis. L5-S1 minimal broad-based posterior disc bulge. X-ray L spine 12/10/21: mild to moderate multilevel degenerative changes noted throughout the thoracolumbar spine, greatest at L4-5 with anterior bridging osteophyte formation L3-4, L4-5 and L5-S1. SI joints appear normal. No evidence of spondylolisthesis. Social History Description Last Updated Current smoker 10/20/2022 Last Documented On 3 11:58AM ; [facility] Alcohol 10/20/2022 Last Documented On 3 11:58AM ; [facility] Amount of alcohol per day: 3-4 3 Last Documented On 3 11:58AM ; [facility] Difficulty walking 10/20/2022 Last Documented On 3 11:58AM ; [facility] Not using drugs 10/20/2022 Last Documented On 3 11:58AM ; [facility] Smoking packs of cigarettes per day 1 Last Documented On 3 11:58AM ; [facility] Smoking Status Unknown Procedures and Surgical History Includes: Procedures from this encounter Procedures Code Diagnosis Performing Provider Service L ocation Service Date use of tobacco assessment performed 1000F Last Documented On 3 10:47AM ; [facility] review of medications documented 1160F Last Documented On 3 10:47AM ; [facility] screening for adult depression: impressi on and score six Last Documented On 3 11:10AM ; [facility] standardized depression screening: posit sirisha for symptoms Last Documented On 3 11:10AM ; [facility] Clinical summary provided to patient ~ Patient understands and agrees with treatment plan. Questions answered Last Documented On 3 10:47AM ; [facility] SOAPP-R: total score 25 Last Documented On 3 11:06AM ; [facility] Surgical History Last Updated No Pacemaker 10/20/2022 Last Documented On 3 11:58AM ; [facility] Medical History Includes: Medical History addressed during this encounter Description Last Updated Currently wearing eyeglasses 10/20/2022 Last Documented On 3 11:58AM ; [facility] Moderate to severe pain 10/20/2022 Last Documented On 3 11:58AM ; [facility] No Pain Pump 10/20/2022 Last Documented On 3 11:58AM ; [facility] No Spinal cord stimulator 10/20/2022 Last Documented On 3 11:58AM ; [facility] Uses a cane for support 10/20/2022 Last Documented On 3 11:58AM ; [facility] Family History Includes: Family History addressed during this encounter Description Last Updated Family history of Arthritis 10/20/2022 Last Documented On 3 11:58AM ; [facility] Paternal history of family history of is chemic heart disease 10/20/2022 Last Documented On 3 11:58AM ; [facility] Paternal history of stroke/paralysis 03/2022 Last Documented On 3 11:58AM ; [facility] Review of Systems Includes: Review of Systems from this encounter Systemic: No systemic symptoms other than noted. Fatigue and recent weight change. Head: No head symptoms other then noted. Neck: No neck pain. Otolaryngeal: No otolaryngeal symptoms other than noted. Cardiovascular: No chest pain or discomfort. Pulmonary: No dyspnea. Gastrointestinal: Appetite. No nausea and no constipation. Genitourinary: No urinary loss of control. Endocrine: No endocrine symptoms other than noted. Muscle weakness and Weakness. Hematologic: No easy bleeding and no tendency for easy bruising. Musculoskeletal: Back pain, pain localized to one or more joints, and joint stiffness localized to one or more joints. Neurological: No fainting passing out with needles or medical procedures, no motor disturbances, and no sensory disturbances. Psychological: No psychological symptoms other than noted. Feeling nervous, depression, and insomnia. Skin: No skin symptoms other than noted. Mental Status Includes: Mental Status from this encounter No Mental Status Recorded Functional Status Includes: Functional Status from this encounter No Functional Status Recorded Physical Exam Includes: Physical Exam from this encounter Allergies Includes: Active Allergies No Known Allergies Encounters Encounter Provider Location Date Check-In Time Check-Out Time Diagnosis PAIN MANAGEMENT NEW CONSULT MEGGAN CRAWFORD [facility] 10/21/19 23 11:02AM 11:42AM Chronic Pain Syndrome,Spinal Stenosis Lumbar with Neurogenic Claudication,Spo ndylosis with Radiculopathy Lumbar Region,Alcohol Dependence Uncomplicated Insurance Includes: Active Insurance Policies Plan Name Member ID Group # Subscriber Relationship Effect sirisha Dates 1 - [facility] PL[facility] [id number] RIO Guerrero Clinical Notes Includes: Clinical Notes from this encounter * Progress note Date Encounter Last Documented by 10/20/2022 PAIN MANAGEMENT NEW CONSULT Last documented on 10/20/2022; 11:58 AM, MEGGAN CRAWFORD; [facility] Chief Complaint The Chief Complaint is: REFERRED BY SABRINA BRYSON FOR OTHER CHRONIC PAIN. History of Present Illness - Allergy list reviewed - Problem list reviewed - Medication reconciliation performed - Medication list reviewed - Prescription Drug Monitoring Program website checked. - Last dose of medication? - Pain is continuous - Primary pain location Lo back and hips - Primary pain duration Chronic - Secondary pain duration Always - Secondary pain location Lower legs - Relieved by repositioning - Pain aggravated getting in/out of car - Pain aggravated going up stairs - Pain aggravated lying down - Pain aggravated sitting - Pain aggravated standing - Pain aggravated when out of chair - Pain aggravated by walking - Pain aggravated lifting - Pain aggravated bending - Groin pain radiating to right side - Pain radiates to Genitals - Pain radiates in both feet Discussion: Patient is a 57-year-old male, with long-standing history of alcoholism, referred for evaluation and treatment. He describes chronic low back pain for 20 plus years, tolerable until the last 2-3 years. Pain has progressively worsened and limits his everyday activities. He describes low back pain with electrical sensation into right lower extremity intermittently, mainly when he is active, lifting or twists too quickly. Pain also worsens with standing and flexion. He reports the most relief comes from laying flat. Because of this, he has become sedentary due to pain. He reports a few falls, nothing in last 6 months. He notes feeling dizziness at times, but questions if this is the alcohol or medication. Discussed both or the combination could be causing this symptom. He completed 6-8 weeks of therapy approximately 1 year ago and noted increased in strength, but pain didn't change. He continues home exercises on a daily basis. He reports tramadol by previous pcp, usually twice per day, but new pcp is not eager to continue this medication without seeing pain management (per patient). I'm not sure this is the best idea with current alcohol consumption daily. Switching from gabapentin to pregabalin has helped with leg pain some. Nerve study recently done at [facility], we will obtain this test. Otherwise, imaging reviewed and recommend bilateral lumbar epidural for low back pain as well as neurogenic claudication symptoms. I have fully answered his questions today. We did discussed alcohol cessation. Patient voice concerned regarding rapid weight loss over the last year. Encouraged him to speak with his PCP. Imaging: All relevant imaging available was personally reviewed with the patient today with the following tests and results noted: MRI L spine 08/24/22: L4-5 broad-based posterior disc bulge. Ligamentum flavum hypertrophy. Mild bilateral neural foraminal stenosis. L5-S1 minimal broad-based posterior disc bulge. X-ray L spine 12/10/21: mild to moderate multilevel degenerative changes noted throughout the thoracolumbar spine, greatest at L4-5 with anterior bridging osteophyte formation L3-4, L4-5 and L5-S1. SI joints appear normal. No evidence of spondylolisthesis. Test Conclusions PHQ-9 Score: 6 Date:10/20/22 BPI Score: Date: MiDAS Score: Date: SOAPP-R Score: 25 HIGH Date:10/20/22 OSWESTRY Score: 66% Date:10/20/22 Past Medical/Surgical History Reported: Medical: Currently wearing eyeglasses, orthopedic history Left Knee Score mild pain Moderate to severe pain, and Uses a cane for support. No Spinal cord stimulator and no Pain Pump. Surgical / Procedural: No Pacemaker. Current Medication - Metoprolol Tartrate 50 MG Oral Tablet One tablet daily 30 days, 0 refills - Pregabalin 100 MG Oral Capsule One tablet twice a day 30 days, 0 refills - Tylenol Extra Strength 500 MG Oral Tablet as needed 0 days, 0 refills Social History Difficulty walking. Behavioral: Amount of alcohol per day: 3-4. Tobacco use: Cigarette smoking smoking packs of cigarettes per day 1. Alcohol: Alcohol. Drug Use: Not using drugs. Allergies - No Known Allergies Family History Arthritis Paternal: Stroke/paralysis Ischemic heart disease Review Of Systems Systemic: No systemic symptoms other than noted. Fatigue and recent weight change. Head: No head symptoms other then noted. Neck: No neck pain. Otolaryngeal: No otolaryngeal symptoms other than noted. Cardiovascular: No chest pain or discomfort. Pulmonary: No dyspnea. Gastrointestinal: Appetite. No nausea and no constipation. Genitourinary: No urinary loss of control. Endocrine: No endocrine symptoms other than noted. Muscle weakness and Weakness. Hematologic: No easy bleeding and no tendency for easy bruising. Musculoskeletal: Back pain, pain localized to one or more joints, and joint stiffness localized to one or more joints. Neurological: No fainting passing out with needles or medical procedures, no motor disturbances, and no sensory disturbances. Psychological: No psychological symptoms other than noted. Feeling nervous, depression, and insomnia. Skin: No skin symptoms other than noted. Physical Findings - Vitals taken 10/20/2022 11:02 am BP-Sitting L 150/86 mmHg Pulse Rate-Sitting 74 bpm Temp-Temporal 96.2 F Height 70 in Weight 126 lbs Body Mass Index 18.1 kg/m2 Body Surface Area 1.7 m2 Pain Level 6 Pain Level Note LOW BACK Oxygen Saturation 99 % Musculoskeletal System: General/bilateral: Musculoskeletal Scales: Value Lumbar oswestry score 66 Psychiatric: Psychiatric: Value PHQ9 score: 6 Constitutional: Thin. In no acute distress. HEENT: NC/AT. Anicteric. Clear Conjunctiva. PERRLA. MM's pink/moist. No discharge via nares. No lesions of EAC. No discharge of EAC. Neck supple. No lymphadenopathy in cervical chain bilaterally. CVS: RRR. No peripheral edema. Peripheral pulses palpable in all extremities. Pulmonary: CTA bilaterally. Normal chest expansion bilaterally. Spine/MSK: Tenderness bilateral lumbar facet joints. Decreased lumbar range of motion in all planes. Positive facet loading. Negative SLR. Tenderness SI joints. Negative felisha, negative gaenslen. Gait: Not antalgic. No steppage gait. No Trendelenburg gait. No circumspected gait pattern. Heel walk normal. Toe walk normal. Tandem gait normal. Neuro: Awake. Alert. Oriented x3. DTR's intact in all extremities. DTR's equal in all extremities. No sensory deficit. No motor deficit. Psych: No apparent distress. Mood normal. Affect normal. No pain behaviors. Skin: No rash. Normal pigmentation. Normal temperature Tests Educational Testing: Questionnaires PHQ-9: Value SOAPP-R: total score 25 Assessment - Lumbar spondylosis with radiculopathy [M47.26 - Other spondylosis with radiculopathy, lumbar region] - Lumbar stenosis with neurogenic claudication [M48.062 - Spinal stenosis, lumbar region with neurogenic claudication] - Alcohol dependence uncomplicated [F10.20 - Alcohol dependence, uncomplicated] - Chronic pain syndrome [G89.4 - Chronic pain syndrome] Therapy - Clinical summary provided to patient Patient understands and agrees with treatment plan. Questions answered. Discussed Risks, benefits and alternatives (including doing nothing) were discussed with the patient who agreed to proceed despite risk and agreement that potential benefits outweighs the chance of significant harm. No need to hold NSAIDS/ASA F/U post procedure Plan StartCited - Spinal stenosis, lumbar region with neurogenic claudication Pain Management CPT/Epidural Steroid Inj: Transforaminal, Lumbar or Sacral 1st level Instructions: consent for bilateral L4-5 transforaminal epidural Lidocaine 5% patch as directed apply patch to affected area for 12 hours and remove for 12 hours, 30 days, 2 refills EndCited Practice Management Use of tobacco assessment performed Review of medications documented; Standardized depression screening: positive for symptoms and for adult impression and score six. A total of [45 ] minutes were spent on this patient's evaluation, as above, with greater than 50% of this time spent in direct [id number] counseling and coordination of care. Results of this interaction were communicated directly to the patient's referring and/or primary care provider. Multiple documents have been reviewed today in conjunction with her evaluation including online prescription monitoring database, laboratory data, imaging studies, previous specialist provider notes and primary care provider notes. For all patients on acute or chronic opioids, ongoing need for opioid analgesia is assessed at each visit with consideration of discontinuation or wean to lowest effective dose when possible and appropriate. Contents of this document have been edited for correctness, but may be subject to typographical or supervisor plating and point assembly errors. Verify all diagnoses, medications, dosages, and patient instructions with patient and/or the originator of this document. Health Reminders - Assess BMI satisfied 10/20/2022. - Assess Tobacco Use satisfied 10/20/2022. - Depression Screening satisfied 10/20/2022.
--- OUTSIDE RECORDS SUMMARY | 2024-04-17 14:25 | XMS_ITS ---
Care Plan - [facility] Created on: April 17, 2024 RIO RADER : 1965 Sex: Male Author Organization [facility] Address [address] [place] [address] Phone Care Team Providers Care Abrasive Sawyer Name Role Phone SABRINA BRYSON PA-C Primary Care Provider [phone]
--- OUTSIDE RECORDS SUMMARY | 2024-04-17 14:26 | XMS_ITS | Clinical Summary ---
Author Organization [facility] Address [address] [place] [address] Phone Care Team Providers Care Duplicator Punch Operator Name Role Phone SABRINA BRYSON PA-C Primary Care Provider [phone] Reason for Visit and Chief Complaint * PHONE CALL Plan of Treatment No Plan of Treatment Recorded Assessments Includes: Assessments from this encounter No Assessments Recorded Medical Equipment - Implanted Devices Includes: Current Devices No Medical Equipment Recorded Medications Includes: Medications discussed during this encounter and other current Medications New / Renewed during this visit MEGGAN CRAWFORD on 11/10/2022 ALPRAZolam 0.5 MG Oral Tablet Provider: MEGGAN ERVIN 1 day supply: 2 tablet, 0 refills Diagnosis: as directed 1 po 1 hour prio r to procedure, 1 po 30 minutes prior to procedure Pharmacy: [facility] [address] [facility], [id number] - Last Documented On 3 11:36AM By MEGGAN CRAWFORD ; [facility] Current Medications (continue as prescribed) Tylenol Extra Strength 500 MG Oral Tablet 10/20/2022 Provider: Diagnosis: Last Documented On 3 11:09AM By Nova HOOVER ; [facility] Lidocaine 5% External Patch 10/20/2022 Provider: MEGGAN CRAWFORD Diagnosis: Spinal stenosis, lumbar region with neurogenic claudication as directed apply patch to a ffected area for 12 hours and remove for 12 hours Last Documented On 3 11:51AM By MEGGAN CRAWFORD ; [facility] Pregabalin 100 MG Oral Capsule 09/21/2022 Provider: SABRINA BRYSON PA-C Diagnosis: Last Documented On 3 10:48AM By Nova HOOVER ; [facility] Metoprolol Tartrate 50 MG Oral Tablet 09/21/2022 Pro vider: SABRINA BRYSON PA-C Diagnosis: Last Documented On 3 10:49AM By Nova HOOVER ; [facility] Medications Administered Includes: Administered Medications from this encounter No Administered Medications Recorded Results Includes: Results discussed during this encounter No Results Recorded For Specified Dates History of Present Illness Includes: History of Present Illness from this encounter No History of Present Illness Recorded Social History Description Last Updated Current smoker 10/20/2022 Last Documented On 3 11:28AM ; [facility] Alcohol 10/20/2022 Last Documented On 3 11:28AM ; [facility] Amount of alcohol per day: 3-4 3 Last Documented On 3 11:28AM ; [facility] Difficulty walking 10/20/2022 Last Documented On 3 11:28AM ; [facility] Smoking packs of cigarettes per day 1 Last Documented On 3 11:28AM ; [facility] Smoking Status Unknown Medical History Includes: Medical History addressed during this encounter No Medical History Recorded Family History Includes: Family History addressed during this encounter No Family History Recorded Review of Systems Includes: Review of Systems from this encounter No Review of Systems Recorded Mental Status Includes: Mental Status from this encounter No Mental Status Recorded Functional Status Includes: Functional Status from this encounter No Functional Status Recorded Physical Exam Includes: Physical Exam from this encounter No Physical Exam Recorded Allergies Includes: Active Allergies No Known Allergies Encounters Encounter Provider Location Date Check-In Time Check-Out Time Diagnosis * PHONE CALL MEGGAN CRAWFORD 11/10/2022 11:27AM 11:59PM Insurance Includes: Active Insurance Policies Plan Name Member ID Group # Subscriber Relationship Effect sirisha Dates 1 - [facility] [id number] RIO E DIOR Self Clinical Notes Includes: Clinical Notes from this encounter * Progress note Date Encounter Last Documented by 11/10/2022 * PHONE CALL Last documented on 11/10/2022; 11:28 AM, MEGGAN ARREAGA ANP-; [facility] Current Medication - Lidocaine 5% External Patch as directed apply patch to affected area for 12 hours and remove for 12 hours, 30 days, 2 refills - Metoprolol Tartrate 50 MG Oral Tablet [...] of cigarettes per day 1. Alcohol: Alcohol. Allergies - No Known Allergies Plan StartCited - Other ALPRAZolam 0.5 MG tablet as directed 1 po 1 hour prior to procedure, 1 po 30 minutes prior to procedure, 1 days, 0 refills EndCited Health Reminders - Assess Tobacco Use satisfied 11/10/2022.
--- OUTSIDE RECORDS SUMMARY | 2024-04-17 14:26 | XMS_ITS | Data Portability ---
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 Plan of Treatment Reminders Order Date Submit Date Provider Last Modified By Organization Details Last Modified Time Details Appointments None recorded. Lab inflammatio n panel, serum or plasma 2022 023 [facility], [address] [place] [address], [address], [place], [address], 3 12:34:30 CBC w/ auto diff 2022 023 [email or web address] [facility], [address] [place] [address], [address], [place], [address], 3 12:34:30 BNP (B-type natriuretic peptide), serum or plasma 2023 024 LIBOR[facility], [address] [facility], [address], [place], [address], 4 16:14:54 CMP, serum or plasma 2023 024 LIBORIO [facility], [address] Inder Lopez, [address], [address], 4 23:07:46 lipid panel, serum 2023 024 [facility], [address], [address], [place], [address], 4 23:07:46 CBC w/ auto diff 2023 024 [facility], [address] In[address] Lopez, [address], [place], [address], 4 23:07:47 TSH + free T4, serum 2023 024 [facility], [address] In[address], [address], [place], [address], 4 15:19:52 HbA1c (hemoglobin A1c), blood 2023 024 [facility], [address] In[address] Lopez, [address], [place], [address], 4 15:19:52 Referral pain management referral 2022 023 [facility], [address], [place], [address], 3 16:44:41 Procedures None recorded. Surgeries None recorded. Imaging MRI, lumbar spine, w/o contrast 2022 023 [facility] (Rad), [address] [place], [address], 3 13:07:58 LDCT, chest, for lung cancer screening 2023 024 [facility] (Imaging), [address] [place], [address], 4 16:17:44 XR, knee, 3 view 2023 024 [facility] (Imaging), [address] [place], [address], 4 16:05:26 XR, lumbosacral spine, 2 or 3 view 2023 024 [id number] [facility] ([facility]), [address], [place], [address], 4 08:19:10 Medication Orders pregabalin 100 mg capsule 2022 023 [id number], [address] [place], [place], [id number], 4 13:04:50 metoprolol tartrate 25 mg tablet 2023 024 [facility] #[id number], [address] , [place], [place], [id number], 4 15:32:33 pregabalin 200 mg capsule 2023 024 [facility] #[id number], [address] , [place], [place], [id number], 4 15:56:15 Patient TargetsNo targets recorded. Patient Instructions Encounter Date Encounter Id Patient Instructions Last Modified By Organization Details Last Modified Time 10/07/2022 [id number] Ret in 1 week of Dec 12 to schedule surgery. [email or web address] Not available 10/07/2022 13:56:43 04/20/2023 [id number] I recommend removal of mass under general anesthesia. Needs medical clearance for tachycardia. [email or web address] Not available 04/20/2023 15:51:43 Reason for Referral Pain Management Referral for Chronic pain Referring Physician: Elo Bryson, Family Medicine, Encounter Date: 07/29/2022 Results Created Date Observation Date Name Description Value Unit Range Abnormal Flag Note LastModifiedBy Organization Detail LastModifiedTime 07/02/1907/01/2022 LIPID PANEL WITH LDL/H DL RATIO cholesterol, total 190.3 mg/dL 140.0- 200.0 Not Available [facility] Department [address] [place], [address], 07/01/2022 20:09:31 07/02/19 23 07/01/2022 LIPID PANEL WITH LDL/H DL RATIO triglyceride s 82 mg/dL <=150 Not Available [facility] Department [address] [place], [address], 07/01/2022 20:09:31 07/02/19 23 07/01/2022 LIPID PANEL WITH LDL/H DL RATIO HDL cholesterol 111.1 mg/dL 40.0-1 00.0 above high normal Not Available [facility] Department [address] [place], [address], 07/01/2022 20:09:31 07/02/19 23 07/01/2022 LIPID PANEL WITH LDL/H DL RATIO VLDL cholesterol kendra 16.40 mg/dL 5.00-4 0.00 Not Available [facility] Department [address] [place], [address], 07/01/2022 20:09:31 07/02/19 23 07/01/2022 LIPID PANEL WITH LDL/H DL RATIO LDL chol calc ([facility]) 64.7 Not Available [facility] Department [address] [place], [address], 07/01/2022 20:09:31 07/02/19 23 07/01/2022 LIPID PANEL WITH LDL/H DL RATIO LDL/HDL ratio 0.6 Not Available [facility] Department [address] [place], [address], 07/01/2022 20:09:31 07/02/19 23 07/01/2022 COMP. METAB OLIC PANEL (14) glucose 87 mg/dL 65-99 ANION GP 25.0 mmol/ L N OSMOL 275.0 mOsM/ L N REFER ENCE RANGE : 275.0 -301. 0 Not Available [facility] Department [address] [place], [address], 07/01/2022 20:09:32 07/02/19 23 07/01/2022 COMP. METAB OLIC PANEL (14) BUN 7 mg/dL 8-26 below low normal Not Available [facility] Department [address] [place], [address], 07/01/2022 20:09:32 07/02/19 23 07/01/2022 COMP. METAB OLIC PANEL (14) creatinine 0.66 mg/dL 0.50-1 .40 Not Available [facility] Department [address] [place], [address], 07/01/2022 20:09:32 07/02/19 23 07/01/2022 COMP. METAB OLIC PANEL (14) eGFR 108 mL/mi n/1.7 3 >=60 Not Available [facility] Department [address] [place] [address], [address], 07/01/2022 20:09:32 07/02/19 23 07/01/2022 COMP. METAB OLIC PANEL (14) BUN/creatini ne ratio 10.6 Not Available [facility] Department [address] [place], [address], 07/01/2022 20:09:32 07/02/19 23 07/01/2022 COMP. METAB OLIC PANEL (14) sodium 139.0 mmol/ L 136.0- 144.0 Not Available [facility] Department [address] [place] [address], [address], 07/01/2022 20:09:32 07/02/19 23 07/01/2022 COMP. METAB OLIC PANEL (14) potassium 4.4 mmol/ L 3.5-5. 3 Not Available [facility] Department [address] [place], [address], 07/01/2022 20:09:32 07/02/19 23 07/01/2022 COMP. METAB OLIC PANEL (14) chloride 99 mmol/ l 101-11 1 below low normal Not Available [facility] Department [address] [place] [address], [address], 07/01/2022 20:09:32 07/02/19 23 07/01/2022 COMP. METAB OLIC PANEL (14) carbon dioxide, total 20.0 mmol/ L 21.0-3 2.0 below low normal Not Available [facility] Department [address] [place], [address], 07/01/2022 20:09:32 07/02/19 23 07/01/2022 COMP. METAB OLIC PANEL (14) calcium 9.9 mg/dL 8.2-10 .0 Not Available [facility] Department [address] [place] [address], [address], 07/01/2022 20:09:32 07/02/19 23 07/01/2022 COMP. METAB OLIC PANEL (14) protein, total 7.9 g/dL 6.7-8. 2 Not Available [facility] Department [address] [place] [address], [address], 07/01/2022 20:09:32 07/02/19 23 07/01/2022 COMP. METAB OLIC PANEL (14) albumin 5.0 g/dL 3.5-5. 5 Not Available [facility] Department [address] [place], [address], 07/01/2022 20:09:32 07/02/19 23 07/01/2022 COMP. METAB OLIC PANEL (14) globulin, total 2.9 g/dL 1.5-4. 5 Not Available [facility] Department [address] [place], [address], 07/01/2022 20:09:32 07/02/19 23 07/01/2022 COMP. METAB OLIC PANEL (14) A/G ratio 1.[address] [facility] Department [address] [place], [address], 07/01/2022 20:09:32 07/02/19 23 07/01/2022 COMP. METAB OLIC PANEL (14) bilirubin, total 0.7 mg/dL 0.0-1. 2 Not Available [facility] Department [address] [place], [address], 07/01/2022 20:09:32 07/02/19 23 07/01/2022 COMP. METAB OLIC PANEL (14) alkaline phosphatase 99.4 IU/L 42.0-1 21.0 Not Available [facility] Department [address] [place], [address], 07/01/2022 20:09:32 07/02/19 23 07/01/2022 COMP. METAB OLIC PANEL (14) AST (SGOT) 30.3 U/L 10.0-4 2.0 Not Available [facility] Department [address] [place], [address], 07/01/2022 20:09:32 07/02/19 23 07/01/2022 COMP. METAB OLIC PANEL (14) ALT (SGPT) 21.0 U/L 10.0-6 0.0 Not Available [facility] Department [address] [place], [address], 07/01/2022 20:09:32 07/02/19 23 07/01/2022 CBC WITH DIFFE RENTI AL/PL ATELE T WBC 5.8 K/uL 3.4-10 .8 Not Available [facility] Department [address] [place], [address], 07/01/2022 20:09:32 07/02/19 23 07/01/2022 CBC WITH DIFFE RENTI AL/PL ATELE T RBC 4.4 M/uL 4.5-6. 3 below low normal Not Available [facility] Department [address] [place], [address], 07/01/2022 20:09:32 07/02/19 23 07/01/2022 CBC WITH DIFFE RENTI AL/PL ATELE T hemoglobin 15.6 g/dL 13.5-1 7.5 Not Available [facility] Department [address] [place], [address], 07/01/2022 20:09:32 07/02/19 23 07/01/2022 CBC WITH DIFFE RENTI AL/PL ATELE T hematocrit 44.2 % 40.0-5 2.0 Not Available [facility] Department [address] [place], [address], 07/01/2022 20:09:32 07/02/19 23 07/01/2022 CBC WITH DIFFE RENTI AL/PL ATELE T MCV 101 fL 80-95 above high normal Not Available [facility] Department [address] [place], [address], 07/01/2022 20:09:32 07/02/19 23 07/01/2022 CBC WITH DIFFE RENTI AL/PL ATELE T MCH 36 pg 27-32 above high normal Not Available [facility] Department [address] [place], [address], 07/01/2022 20:09:32 07/02/19 23 07/01/2022 CBC WITH DIFFE RENTI AL/PL ATELE T MCHC 35 g/dL 32-36 Not Available [facility] Department [address] [place], [address], 07/01/2022 20:09:32 07/02/19 23 07/01/2022 CBC WITH DIFFE RENTI AL/PL ATELE T RDW 14.1 % 11.5-1 4.5 Not Available [facility] Department [address] [place], [address], 07/01/2022 20:09:32 07/02/19 23 07/01/2022 CBC WITH DIFFE RENTI AL/PL ATELE T platelets 207 K/uL 155-37 9 MPV 9.0 FL 8.9-1 2.7 N Not Available [facility] Department [address] [place], [address], 07/01/2022 20:09:32 07/02/19 23 07/01/2022 CBC WITH DIFFE RENTI AL/PL ATELE T neutrophils 30.2 % 40.0-7 4.0 below low normal Not Available [facility] Department [address] [place], [address], 07/01/2022 20:09:32 07/02/19 23 07/01/2022 CBC WITH DIFFE RENTI AL/PL ATELE T lymphs 60.0 % 14.0-4 6.0 above high normal Not Available [facility] Department [address] [place], [address], 07/01/2022 20:09:32 07/02/19 23 07/01/2022 CBC WITH DIFFE RENTI AL/PL ATELE T monocytes 6.2 % 4.0-12 .0 Not Available [facility] Department [address] [place], [address], 07/01/2022 20:09:32 07/02/19 23 07/01/2022 CBC WITH DIFFE RENTI AL/PL ATELE T eos 2 % 0-5 Not Available [facility] Department [address] [place], [address], 07/01/2022 20:09:32 07/02/19 23 07/01/2022 CBC WITH DIFFE RENTI AL/PL ATELE T basos 1.6 % 0.0-1. 0 above high normal Not Available [facility] Department [address] [place], [address], 07/01/2022 20:09:32 07/02/19 23 07/01/2022 CBC WITH DIFFE RENTI AL/PL ATELE T neutrophils (absolute) 1.8 K/uL 1.4-7. 0 Not Available [facility] Department [address] [place], [address], 07/01/2022 20:09:32 07/02/19 23 07/01/2022 CBC WITH DIFFE RENTI AL/PL ATELE T lymphs (absolute) 3.5 K/uL 0.7-3. 1 above high normal Not Available [facility] Department [address] [place], [address], 07/01/2022 20:09:32 07/02/19 23 07/01/2022 CBC WITH DIFFE RENTI AL/PL ATELE T monocytes(ab solute) 0.4 K/uL 0.1-0. 9 Not Available [facility] Department [address] [place], [address], 07/01/2022 20:09:32 07/02/19 23 07/01/2022 CBC WITH DIFFE RENTI AL/PL ATELE T eos (absolute) 0.1 K/uL 0.0-0. 4 Not Available [facility] Department [address] [place], [address], 07/01/2022 20:09:32 07/02/19 23 07/01/2022 CBC WITH DIFFE RENTI AL/PL ATELE T baso (absolute) 0.1 K/uL 0.0-0. 3 Not Available [facility] Department [address] [place], [address], 07/01/2022 20:09:32 07/02/19 23 07/01/2022 CBC WITH DIFFE RENTI AL/PL ATELE T immature granulocytes 0.3 % Not Available [facility] Department [address] [place], [address], 07/01/2022 20:09:32 07/02/19 23 07/01/2022 CBC WITH DIFFE RENTI AL/PL ATELE T immature grans (abs) 0.0 K/uL Not Available [facility] Department [address] [place], [address], 07/01/2022 20:09:32 07/02/19 23 07/01/2022 CBC WITH DIFFE RENTI AL/PL ATELE T NRBC 0 % Not Available [facility] Department [address] [place], [address], 07/01/2022 20:09:32 07/02/19 23 07/02/2022 TSH+F REE T4 TSH 1.620 uIU/m L 0.450- 4.500 Not Available [facility] ([facility]) [address] [facility], [place], [address], 07/02/2022 08:25:49 07/02/19 23 07/02/2022 TSH+F REE T4 T4,free(dire ct) 1.36 NG/dL 0.82-1 .77 Not Available [facility] ([facility]) [address] [facility], [place], [address], 07/02/2022 08:25:49 07/02/1907/02/2022 HEMOG LOBIN A1C hemoglobin A1C 5.4 % 4.8-5. 6 Predi abete s: 5.7 - 6.4 Diabe sharmila: >6.4 Glyce chelsey contr ol for adult s with diabe sharmila: <7.0 Not Available [facility] ([facility]) [address] [facility], [place], [address], 07/02/2022 08:25:50 07/02/1907/01/2022 MANUA L ALEXE RENTI AL neutrophils 20 % Not Available [facility] Department [address] [place], [address], 07/01/2022 23:07:38 07/02/19 23 07/01/2022 MANUA L DIFFE RENTI AL lymphs 75 % 14-46 above high normal Not Available [facility] Department [address] [place], [address], 07/01/2022 23:07:38 07/02/19 23 07/01/2022 MANUA L DIFFE RENTI AL monocytes 2 % Not Available [facility] Department [address] [place], [address], 07/01/2022 23:07:38 07/02/19 23 07/01/2022 MANUA L DIFFE RENTI AL RBC comment Commen t RBCMO RP DORA L N Not Available [facility] Department [address] [place], [address], 07/01/2022 23:07:38 07/02/19 23 07/01/2022 MANUA L DIFFE RENTI AL platelet comment Commen t PLATE LETS DORA L N Not Available [facility] Department [address] [place], [address], 07/01/2022 23:07:38 07/30/19 23 07/29/2022 CBC WITH DIFFE RENTI AL/PL ATELE T WBC 5.4 K/uL 3.4-10 .8 Not Available [facility] Department [address] [place], [address], 07/29/2022 18:09:35 07/30/19 23 07/29/2022 CBC WITH DIFFE RENTI AL/PL ATELE T RBC 4.2 M/uL 4.5-6. 3 below low normal Not Available [facility] Department [address] [place], [address], 07/29/2022 18:09:35 07/30/19 23 07/29/2022 CBC WITH DIFFE RENTI AL/PL ATELE T hemoglobin 14.9 g/dL 13.5-1 7.5 Not Available [facility] Department [address] [place], [address], 07/29/2022 18:09:35 07/30/19 23 07/29/2022 CBC WITH DIFFE RENTI AL/PL ATELE T hematocrit 42.7 % 40.0-5 2.0 Not Available [facility] Department [address] [place], [address], 07/29/2022 18:09:35 07/30/19 23 07/29/2022 CBC WITH DIFFE RENTI AL/PL ATELE T MCV 103 fL 80-95 above high normal Not Available [facility] Department [address] [place], [address], 07/29/2022 18:09:35 07/30/1907/29/2022 CBC WITH DIFFE RENTI AL/PL ATELE T MCH 36 pg 27-32 above high normal Not Available [facility] Department [address] [place], [address], 07/29/2022 18:09:35 07/30/1907/29/2022 CBC WITH DIFFE RENTI AL/PL ATELE T MCHC 35 g/dL 32-36 Not Available [facility] Department [address] [place], [address], 07/29/2022 18:09:35 07/30/1907/29/2022 CBC WITH DIFFE RENTI AL/PL ATELE T RDW 13.3 % 11.5-1 4.5 Not Available [facility] Department [address] [place], [address], 07/29/2022 18:09:35 07/30/1907/29/2022 CBC WITH DIFFE RENTI AL/PL ATELE T platelets 189 K/uL 155-37 9 MPV 9.4 FL 8.9-1 2.7 N Not Available [facility] Department [address] [place], [address], 07/29/2022 18:09:35 07/30/1907/29/2022 CBC WITH DIFFE RENTI AL/PL ATELE T neutrophils 28.9 % 40.0-7 4.0 below low normal Not Available [facility] Department [address] [place], [address], 07/29/2022 18:09:35 07/30/1907/29/2022 CBC WITH DIFFE RENTI AL/PL ATELE T lymphs 57.5 % 14.0-4 6.0 above high normal Not Available [facility] Department [address] [place], [address], 07/29/2022 18:09:35 07/30/19 23 07/29/2022 CBC WITH DIFFE RENTI AL/PL ATELE T monocytes 9.3 % 4.0-12 .0 Not Available [facility] Department [address] [place], [address], 07/29/2022 18:09:35 07/30/19 23 07/29/2022 CBC WITH DIFFE RENTI AL/PL ATELE T eos 2 % 0-5 Not Available [facility] Department [address] [place], [address], 07/29/2022 18:09:35 07/30/19 23 07/29/2022 CBC WITH DIFFE RENTI AL/PL ATELE T basos 1.7 % 0.0-1. 0 above high normal Not Available [facility] Department [address] [place], [address], 07/29/2022 18:09:35 07/30/19 23 07/29/2022 CBC WITH DIFFE RENTI AL/PL ATELE T neutrophils (absolute) 1.6 K/uL 1.4-7. 0 Not Available [facility] Department [address] [place], [address], 07/29/2022 18:09:35 07/30/19 23 07/29/2022 CBC WITH DIFFE RENTI AL/PL ATELE T lymphs (absolute) 3.1 K/uL 0.7-3. 1 Not Available [facility] Department [address] [place], [address], 07/29/2022 18:09:35 07/30/19 23 07/29/2022 CBC WITH DIFFE RENTI AL/PL ATELE T monocytes(ab solute) 0.5 K/uL 0.1-0. 9 Not Available [facility] Department [address] [place], [address], 07/29/2022 18:09:35 07/30/19 23 07/29/2022 CBC WITH DIFFE RENTI AL/PL ATELE T eos (absolute) 0.1 K/uL 0.0-0. 4 Not Available [facility] Department [address] [place], [address], 07/29/2022 18:09:35 07/30/19 23 07/29/2022 CBC WITH DIFFE RENTI AL/PL ATELE T baso (absolute) 0.1 K/uL 0.0-0. 3 Not Available [facility] Department [address] [place], [address], 07/29/2022 18:09:35 07/30/19 23 07/29/2022 CBC WITH DIFFE RENTI AL/PL ATELE T immature granulocytes 0.9 % Not Available [facility] Department [address] [place], [address], 07/29/2022 18:09:35 07/30/19 23 07/29/2022 CBC WITH DIFFE RENTI AL/PL ATELE T immature grans (abs) 0.1 K/uL Not Available [facility] Department [address] [place], [address], 07/29/2022 18:09:35 07/30/19 23 07/29/2022 CBC WITH DIFFE RENTI AL/PL ATELE T NRBC 0 % Not Available [facility] Department [address] [place], [address], 07/29/2022 18:09:35 04/21/19 24 04/22/2023 B-TYP E NATRI URETI C PEPTI DE B-type natriuretic peptide - pg/mL Test not perfo rmed. Gel barri er tube unsui table for test order ed. Test not perfo rmed. Attem pts to conta ct your facil ity were unsuc cessf ul. SPECI MEN REQUI RED:F ROZEN PLASM A TRANS NEHAL TUBE Sieme ns [facility] XP metho dolog y Not Available [facility] ([facility]) [address] [facility], [place], [address], 04/22/2023 16:14:54 04/21/19 24 04/22/2023 SPECI MEN STATU S REPOR T specimen status report TNP Test not perfo rmed. Gel barri er tube unsui table for test order ed. Test not perfo rmed. Attem pts to conta ct your facil ity were unsuc cessf ul. TEST: 06504 [id number] B-Typ e Natri ureti c Pepti de SPECI MEN REQUI RED:F ROZEN PLASM A TRANS NEHAL TUBE Not Available [facility] ([facility]) [address] [facility], [place], [address], 04/22/2023 16:14:54 09/07/19 24 09/09/2023 LIPID PANEL WITH LDL/H DL RATIO cholesterol, total 191 mg/dL 100-19 9 Not Available [facility] Department [address] [place] [address], [address], 09/09/2023 23:07:46 09/07/19 24 09/09/2023 LIPID PANEL WITH LDL/H DL RATIO triglyceride s 108 mg/dL 0-149 Not Available [facility] Department [address] [place] [address], [address], 09/09/2023 23:07:46 09/07/19 24 09/09/2023 LIPID PANEL WITH LDL/H DL RATIO HDL cholesterol 120 mg/dL 40-999 Not Available [facility] Department [address] [place] [address], [address], 09/09/2023 23:07:46 09/07/19 24 09/09/2023 LIPID PANEL WITH LDL/H DL RATIO VLDL cholesterol kendra 22 mg/dL 5-40 Not Available [facility] Department [address] [place] [address], [address], 09/09/2023 23:07:46 09/07/19 24 09/09/2023 LIPID PANEL WITH LDL/H DL RATIO LDL chol calc ([facility]) 66 mg/dL 0-99 Not Available [facility] Department [address] [place] [address], [address], 09/09/2023 23:07:46 09/07/19 24 09/09/2023 LIPID PANEL WITH LDL/H DL RATIO LDL/HDL ratio 0.6 0-3.6 Not Available [facility] Department [address] [place] [address], [address], 09/09/2023 23:07:46 09/07/19 24 09/09/2023 COMP. METAB OLIC PANEL (14) glucose 119 mg/dL 70-99 above high normal Not Available [facility] Department [address] [place] [address], [address], 09/09/2023 23:07:46 09/07/19 24 09/09/2023 COMP. METAB OLIC PANEL (14) BUN 11 mg/dL 8-27 Not Available [facility] Department [address] [place] [address], [address], 09/09/2023 23:07:46 09/07/19 24 09/09/2023 COMP. METAB OLIC PANEL (14) creatinine 0.94 mg/dL 0.76-1 .27 Not Available [facility] Department [address] [place] [address], [address], 09/09/2023 23:07:46 09/07/19 24 09/09/2023 COMP. METAB OLIC PANEL (14) eGFR 93 >=60 Units for eGFR value s are mL/mi n/1.7 3 The eGFR Calcu latio n has not been valid ated for patie nts under the age of 18. If test resul ts are displ ayed for a patie nt under the age of 18, disre edison that value . Not Available [facility] Department [address] [place], [address], 09/09/2023 23:07:46 09/07/19 24 09/09/2023 COMP. METAB OLIC PANEL (14) BUN/creatini ne ratio 11 10-24 Not Available [facility] Department [address] [place] [address], [address], 09/09/2023 23:07:46 09/07/19 24 09/09/2023 COMP. METAB OLIC PANEL (14) sodium 137 mmol/ L 134-14 4 Not Available [facility] Department [address] [place] [address], [address], 09/09/2023 23:07:46 09/07/19 24 09/09/2023 COMP. METAB OLIC PANEL (14) potassium 4.5 mmol/ L 3.5-5. 2 Not Available [facility] Department [address] [place] [address], [address], 09/09/2023 23:07:46 09/07/19 24 09/09/2023 COMP. METAB OLIC PANEL (14) chloride 90 mmol/ L 96-106 below low normal Not Available [facility] Department [address] [place] [address], [address], 09/09/2023 23:07:46 09/07/19 24 09/09/2023 COMP. METAB OLIC PANEL (14) carbon dioxide, total 26 mmol/ L 20-29 Not Available [facility] Department [address] [place], [address], 09/09/2023 23:07:46 09/07/19 24 09/09/2023 COMP. METAB OLIC PANEL (14) calcium 10.3 mg/dL 8.6-10 .2 above high normal Not Available [facility] Department [address] [place] [address], [address], 09/09/2023 23:07:46 09/07/19 24 09/09/2023 COMP. METAB OLIC PANEL (14) protein, total 7.8 g/dL 6.0-8. 5 Not Available [facility] Department [address] [place] [address], [address], 09/09/2023 23:07:46 09/07/19 24 09/09/2023 COMP. METAB OLIC PANEL (14) albumin 5.1 g/dL 3.8-4. 9 above high normal Not Available [facility] Department [address] [place] [address], [address], 09/09/2023 23:07:46 09/07/19 24 09/09/2023 COMP. METAB OLIC PANEL (14) globulin, total 2.7 g/dL 1.5-4. 5 Not Available [facility] Department [address] [place] [address], [address], 09/09/2023 23:07:46 09/07/19 24 09/09/2023 COMP. METAB OLIC PANEL (14) A/G ratio 2.0 1.2-2. 2 Not Available [facility] Department [address] [place], [address], 09/09/2023 23:07:46 09/07/19 24 09/09/2023 COMP. METAB OLIC PANEL (14) bilirubin, total 1.2 mg/dL 0.0-1. 2 Not Available [facility] Department [address] [place] [address], [address], 09/09/2023 23:07:46 09/07/19 24 09/09/2023 COMP. METAB OLIC PANEL (14) alkaline phosphatase 103 IU/L 44-121 Not Available [facility] Department [address] [place], [address], 09/09/2023 23:07:46 09/07/19 24 09/09/2023 COMP. METAB OLIC PANEL (14) AST (SGOT) 89 IU/L 0-40 above high normal Not Available [facility] Department [address] [place], [address], 09/09/2023 23:07:46 09/07/19 24 09/09/2023 COMP. METAB OLIC PANEL (14) ALT (SGPT) 76 IU/L 0-44 above high normal Not Available [facility] Department [address] [place], [address], 09/09/2023 23:07:46 09/07/19 24 09/09/2023 CBC WITH DIFFE RENTI AL/PL ATELE T WBC 5.6 x10e3 /uL 3.4-10 .8 Not Available [facility] Department [address] [place], [address], 09/09/2023 23:07:47 09/07/19 24 09/09/2023 CBC WITH DIFFE RENTI AL/PL ATELE T RBC 3.92 x10e6 /uL 4.14-5 .80 below low normal Not Available [facility] Department [address] [place], [address], 09/09/2023 23:07:47 09/07/19 24 09/09/2023 CBC WITH DIFFE RENTI AL/PL ATELE T hemoglobin 15.1 g/dL 13.0-1 7.7 Not Available [facility] Department [address] [place], [address], 09/09/2023 23:07:47 09/07/19 24 09/09/2023 CBC WITH DIFFE RENTI AL/PL ATELE T hematocrit 48.3 % 37.5-5 1.0 Not Available [facility] Department [address] [place], [address], 09/09/2023 23:07:47 09/07/19 24 09/09/2023 CBC WITH DIFFE RENTI AL/PL ATELE T MCV 123 fL 79-97 above high normal Not Available [facility] Department [address] [place], [address], 09/09/2023 23:07:47 09/07/19 24 09/09/2023 CBC WITH DIFFE RENTI AL/PL ATELE T MCH 38.5 pg 26.6-3 3.0 above high normal Not Available [facility] Department [address] [place], [address], 09/09/2023 23:07:47 09/07/19 24 09/09/2023 CBC WITH DIFFE RENTI AL/PL ATELE T MCHC 31.3 g/dL 31.5-3 5.7 below low normal Not Available [facility] Department [address] [place], [address], 09/09/2023 23:07:47 09/07/19 24 09/09/2023 CBC WITH DIFFE RENTI AL/PL ATELE T RDW 17.0 % 11.5-1 4.5 above high normal Not Available [facility] Department [address] [place], [address], 09/09/2023 23:07:47 09/07/19 24 09/09/2023 CBC WITH DIFFE RENTI AL/PL ATELE T platelets 115 x10e3 /uL 150-45 0 below low normal Not Available [facility] Department [address] [place], [address], 09/09/2023 23:07:47 09/07/19 24 09/09/2023 CBC WITH DIFFE RENTI AL/PL ATELE T neutrophils 46 % notest b. Not Available [facility] Department [address] [place], [address], 09/09/2023 23:07:47 09/07/19 24 09/09/2023 CBC WITH DIFFE RENTI AL/PL ATELE T lymphs 44 % notest b. Not Available [facility] Department [address] [place], [address], 09/09/2023 23:07:47 06/18/20 24 09/09/2023 CBC WITH DIFFE RENTI AL/PL ATELE T monocytes 7 % notest b. Not Available [facility] Department [address] [place], [address], 09/09/2023 23:07:47 09/07/19 24 09/09/2023 CBC WITH DIFFE RENTI AL/PL ATELE T eos 1 % notest b. Not Available [facility] Department [address] [place], [address], 09/09/2023 23:07:47 09/07/19 24 09/09/2023 CBC WITH DIFFE RENTI AL/PL ATELE T basos 1 % notest b. Not Available [facility] Department [address] [place] [address], [address], 09/09/2023 23:07:47 09/07/19 24 09/09/2023 CBC WITH DIFFE RENTI AL/PL ATELE T neutrophils (absolute) 2.6 x10e3 /uL 1.4-7. 0 Not Available [facility] Department [address] [place], [address], 09/09/2023 23:07:47 09/07/19 24 09/09/2023 CBC WITH DIFFE RENTI AL/PL ATELE T lymphs (absolute) 2.4 x10e3 /uL 0.7-3. 1 Not Available [facility] Department [address] [place], [address], 09/09/2023 23:07:47 09/07/19 24 09/09/2023 CBC WITH DIFFE RENTI AL/PL ATELE T monocytes(ab solute) 0.4 x10e3 /uL 0.1-0. 9 Not Available [facility] Department [address] [place], [address], 09/09/2023 23:07:47 09/07/19 24 09/09/2023 CBC WITH DIFFE RENTI AL/PL ATELE T eos (absolute) 0.1 x10e3 /uL 0.0-0. 4 Not Available [facility] Department [address] [place] [address], [address], 09/09/2023 23:07:47 09/07/19 24 09/09/2023 CBC WITH DIFFE RENTI AL/PL ATELE T baso (absolute) 0.1 x10e3 /uL 0.0-0. 2 Not Available [facility] Department [address] [place], [address], 09/09/2023 23:07:47 09/07/19 24 09/09/2023 CBC WITH DIFFE RENTI AL/PL ATELE T immature granulocytes 0.9 % notest b. Not Available [facility] Department [address] [place], [address], 09/09/2023 23:07:47 09/07/19 24 09/09/2023 CBC WITH DIFFE RENTI AL/PL ATELE T immature grans (abs) 0.1 x10e3 /uL 0.0-0. 1 Not Available [facility] Department [address] [place], [address], 09/09/2023 23:07:47 09/07/19 24 09/09/2023 CBC WITH DIFFE RENTI AL/PL ATELE T NRBC 0 % 0-0 Not Available [facility] Department [address] [place], [address], 09/09/2023 23:07:47 09/07/19 24 09/11/[address] PROBL EM request problem TNP Pleas e refer to the follo wing speci men for addit ional lab resul ts. TEST: [id number] Hemog lobin A1c Speci men# [id number] [id number] 19-1 Not Available [facility] ([facility]) [address] [facility], [place], [address], 09/11/2023 12:12:13 09/07/19 24 09/10/2023 TSH+F REE T4 TSH 2.250 uIU/m L 0.450- 4.500 Not Available [facility] ([facility]) [address] [facility], [place], [address], 09/11/2023 12:12:14 09/07/19 24 09/10/2023 TSH+F REE T4 T4,free(dire ct) 1.43 NG/dL 0.82-1 .77 Not Available [facility] ([facility]) [address] [facility], [place], [address], 09/11/2023 12:12:14 09/07/19 24 09/14/2023 HEMOG LOBIN A1C hemoglobin A1C 5.4 % 4.8-5. 6 Predi abete s: 5.7 - 6.4 Diabe sharmila: >6.4 Glyce chelsey contr ol for adult s with diabe sharmila: <7.0 Not Available [facility] ([facility]) [address] [facility], [place], [address], 09/14/2023 10:16:12 09/07/19 24 09/10/2023 SRIDEVI EN AUTHO RIZAT ION written authorizatio n [place] Sridevi en Autho rizat ion Recei wagner. Autho rizat ion recei wagner from FILIPE MANUEL PA-C 09-09 Logge d by Radha Baird n Not Available [facility] ([facility]) [address] [facility], [place], [address], 09/14/2023 10:16:11 07/30/19 23 XR, hip + pelvi s, bilat eral No observ ation record ed. [email or web address] Not Available 2022 09:45:24 07/30/19 23 XR, lumba r spine , 2 view No observ ation record ed. [email or web address] Not Available 2022 09:44:39 08/25/19 23 08/20/2022 MRI, lumba r spine , w/o contr ast EXAMIN ATION: MRI lumbar spine withou t contra st ACCESS ION: [id number] EXAM DATE/T LEENA: 08/21/19 23 5:25 PM REASON FOR EXAM: [id number] 005: Lumbar radicu lopath y COMPAR BRIANNA: None TECHNI QUE: Multi planar , multis equenc e MRI of the lumbar spine was obtain ed withou t the use of an IV contra st agent. FINDIN GS: L1-2, L2-3 and L3-4: Normal . L4-5: Broad- based skating carhop ior disc bulgin g is seen. This is minima l. Ligame ntous hypert rophy is noted. There is no eviden ce of thecal sac narrow ing presen t. Mild bilate ral neurof oramin al narrow ing is possib le. L5-S1: Minima l broad- based skating carhop ior disc bulgin g is seen. This is noncom pressi ve on the thecal sac and neurof oramen . The viewed portio ns of the distal spinal cord conus medull shreyas and cauda equina are within normal limits . No compre ssion deform ity or spondy lolist hesis is seen. ===== IMPRES SANTA:= ==== Minima l broad- based disc bulgin g at L4-5 and L5-S1. This is noncom pressi ve on the thecal sac at these levels . Mild bilate ral neurof oramin al narrow ing at L4-5 is possib le. No neurof oramin al narrow ing at L5-S1 is seen. Electr onical ly Signed By: Felecia Mills MD on 08/25/19 12:03 PM READ BY: FELECIA MILLS MD Date: 2022 12:03 [email or web address] [facility] (Rad) [address] [place], [address], 08/28/2022 09:59:59 04/30/1904/30/2023 XR, knee, 3 view No observ ation record ed. [facility] [address] [place], [address], 05/06/2023 14:13:58 04/30/19 24 04/30/2023 LDCT, chest , for lung caitie dobson No observ ation record ed. [facility] [address], [place], [address], 05/06/2023 14:13:59 Result Notes None recorded. Problems Name Problem SNOMED Code Status Onset Date Resolution Date Notes Provider Name and Address Organization Details Recorded Time Low back pain 131292612 Active 2017 Neeta cain, [place] - [facility] 8 10:23:44 Hip pain 69014466 Active 2017 Neeta cain, [place] - [facility] 8 10:23:45 Chronic pain 69751888 Active 2022 ABRAM ARVIZU Attn: Dai tidwell,[address], [place], [address], [place] [facility] 3 11:14:58 Tachycardia 6346561 Active 2022 ABRAM ARVIZU Attn: Dai diann,[address], [place], [address], [place] [facility] 3 11:14:54 Smoker 18061352 Active 2022 ABRAM ARVIZU Attn: Jordynvianney g,[address], [place], [address], [place] [facility] 3 11:14:52 Alcohol dependence 66626950 Active 2022 ABRAM ARVIZU Attn: Dai g,[address], [place], [address], [place] [facility] 3 11:15:43 Pulmonary emphysema 58223204 Active 2023 ABRAM ARVIZU Attn: Jordynvianney g,[address], [place], [address], [place] [facility] 4 15:59:19 Problem Notes None recorded. Procedures Surgical History None recorded. Imaging Results Imaging Date Name Status [facility] by [facility] Details LastModified Time 07/29/2022 XR, hip + pelvis, bilateral completed [facility] Information not available 07/30/2022 09:45:24 07/29/2022 XR, lumbar spine, 2 view completed [facility] Information not available 07/30/2022 09:44:39 08/20/2022 MRI, lumbar spine, w/o contrast completed [email or web address] [facility] ([facility]) [address] [place], [address], 08/28/2022 09:59:59 04/30/2023 XR, knee, 3 view completed [facility] [address] [place], [address], 05/06/2023 14:13:58 04/30/2023 LDCT, chest, for lung cancer screening completed [facility] [address] [place], [address], 05/06/2023 14:13:59 Procedure Notes None recorded. Medical Equipment None Reported. Allergies No known drug allergies Medications Name Sig Start Date Stop Date Status Note LastModified by Organization Details LastModified Time metoprolol succinate ER 50 mg tablet,exte nded release 24 hr Take 1 tablet every day by oral route in the morning for 30 days. 2022 active Not Available Not Available Not Avai lable gabapentin 400 mg capsule Take 1 capsule 3 times a day by oral route as directed for 30 days. 07/29 completed Not Available Not Available Not Available tramadol 50 mg tablet TAKE 1 TABLET BY MOUTH EVERY 6 HOURS NEEDED 04/21 completed Not Available Not Available Not Available alprazolam 0.5 mg tablet TAKE 1 TABLET BY MOUTH EVERY HOUR PRIOR TO PROCEDURE AND TAKE 1 TABLET BY MOUTH 30 MINUTES PRIOR TO PROCEDURE 09/06 completed Not Available Not Available Not Available lidocaine 5 % topical patch APPLY TO THE AFFECTED AREA DAILY FOR 12 HOURS AND REMOVE FOR 12 HOURS active Not Available Not Available No t Available metoprolol tartrate 50 mg tablet TAKE 1 TABLET BY MOUTH EVERY DAY active Not Available Not Available No t Available cyclobenzap rine 5 mg tablet Take 1 tablet 3 times a day by oral route as needed. 07/01 completed Not Available Not Available Not Available metoprolol tartrate 25 mg tablet TAKE 1 TABLET BY MOUTH EVERY DAY IN THE MORNING active Not Available Not Available No t Available pregabalin 100 mg capsule TAKE 1 CAPSULE BY MOUTH TWICE DAILY NEEDED 09/13 completed Not Available Not Available Not Available pregabalin 200 mg capsule TAKE 1 CAPSULE BY MOUTH TWICE DAILY DIRECTED FOR CHRONIC PAIN active Not Available Not Available No t Available tramadol 07/01 completed Not Available Not Available Not Available Vitals Date Recorded Body height Provider Name an d Address Organization Details Last Updated DateTime 07/29/2022 177.8 cm Yovana Sandoval MA [facility] 3 11:55:17 Date Recorded Body mass index (BMI) Body weight Provider Name and Address Organization Details Last Updated DateTime 07/29/2022 20.4 kg/m2 86965.82 g Yovana Sandoval MA [facility] 0 07/29/2022 11:55:25 Date Recorded Respiratory rate Provider Name a nd Address Organization Details Last Updated DateTime 07/29/2022 20 /min Yovana Sandoval MA [facility] 3 11:55:31 Date Recorded Body temperature Provider Name a nd Address Organization Details Last Updated DateTime 07/29/2022 98 [degF] Yovana Sandoval MA [facility] 3 11:55:36 Date Recorded Heart rate Provider Name an d Address Organization Details Last Updated DateTime 07/29/2022 101 /min Yovana Sandoval MA [facility] 3 11:56:25 Date Recorded Oxygen saturation Oxygen saturation in Arterial blood by Pulse oximetry Provider Name and Address Organization Details Last Updated DateTime 07/29/2022 98 % 98 % Yovana Sandoval MA [facility] 07/29/2022 11:56:27 Date Recorded Body height Provider Name an d Address Organization Details Last Updated DateTime 10/07/2022 177.8 cm Chintan Rust LPN [facility] 10/07/2022 12:53:37 Date Recorded Body height Provider Name an d Address Organization Details Last Updated DateTime 04/20/2023 177.8 cm Polly Granados MA [facility] 2023 12:41:12 Date Recorded Body mass index (BMI) Body weight Provider Name and Address Organization Details Last Updated DateTime 04/20/2023 21 kg/m2 10237.2 g Meganguillermina Granados MA [facility] 04/20/2023 12:41:23 Date Recorded Body temperature Provider Name a nd Address Organization Details Last Updated DateTime 04/20/2023 97.1 [degF] Polly RichardsCAROL nguyen [facility] 04/20/2023 12:41:43 Date Recorded Pain severity - 0-10 verbal numeric rating [Score] - Reported Provider Name and Address Organization Details Last Updated DateTime 04/20/2023 0 Meganrafaelaomar CAROL Granados [facility] 04/20/2023 12:41:47 Date Recorded Heart rate Provider Name an d Address Organization Details Last Updated DateTime 04/20/2023 98 /min Lashayomar Roberta, MA [facility] 2023 12:44:18 Date Recorded Body height Provider Name an d Address Organization Details Last Updated DateTime 04/21/2023 177.8 cm Brenda Carias [facility] 04/21/2023 14:54:46 Date Recorded Body mass index (BMI) Body weight Provider Name and Address Organization Details Last Updated DateTime 04/21/2023 21.1 kg/m2 62124.08 g Brenda Carias [facility] 14:55:12 Date Recorded Oxygen saturation Oxygen saturation in Arterial blood by Pulse oximetry Provider Name and Address Organization Details Last Updated DateTime 04/21/2023 98 % 98 % Brenda Carias [facility] 04/21/2023 14:55:26 Date Recorded Heart rate Provider Name an d Address Organization Details Last Updated DateTime 04/21/2023 96 /min Brenda Carias [facility] 04/21/2023 14:55:29 Date Recorded Respiratory rate Provider Name a nd Address Organization Details Last Updated DateTime 04/21/2023 18 /min ABRAM ARVIZU Attn: Accounting,[address] [place], [address], [facility] 04/21/2023 15:14:46 Date Recorded Body height Provider Name an d Address Organization Details Last Updated DateTime 09/07/2023 177.8 cm Yovana Sandoval MA [facility] 4 15:17:55 Date Recorded Body mass index (BMI) Body weight Provider Name and Address Organization Details Last Updated DateTime 09/07/2023 19.5 kg/m2 90669.56 g Yovana Sandoval MA [facility] 0 09/07/2023 15:18:31 Date Recorded Oxygen saturation Oxygen saturation in Arterial blood by Pulse oximetry Provider Name and Address Organization Details Last Updated DateTime 09/07/2023 97 % 97 % Yovana Sandoval MA [facility] 09/07/2023 15:18:35 Date Recorded Heart rate Provider Name an d Address Organization Details Last Updated DateTime 09/07/2023 116 /min Yovana Sandoval MA [facility] 4 15:18:46 Date Recorded Respiratory rate Provider Name a nd Address Organization Details Last Updated DateTime 09/07/2023 18 /min Yovana Sandoval MA [facility] 4 15:18:49 Date Recorded Heart rate Provider Name an d Address Organization Details Last Updated DateTime 09/07/2023 103 /min ABRAM ARVIZU Attn: Accounting,[address] [place], [address], [place] - [facility] 09/07/2023 15:39:20 Date Recorded Systolic blood pressure Diastolic blood pressure Provider Name and Address Organization Details Last Updated DateTime 07/29/2022 136 mm[Hg] 86 mm[Hg] Yovana Sandoval MA [facility] 07/29/2022 11:56:20 Date Recorded Systolic blood pressure Diastolic blood pressure Provider Name and Address Organization Details Last Updated DateTime 10/07/2022 129 mm[Hg] 77 mm[Hg] Chintan Rust LPN [facility] 10/07/2022 12:54:43 Date Recorded Systolic blood pressure Diastolic blood pressure Provider Name and Address Organization Details Last Updated DateTime 04/20/2023 97 mm[Hg] 65 mm[Hg] Polly Granados MA [facility] 04/20/2023 12:44:09 Date Recorded Systolic blood pressure Diastolic blood pressure Provider Name and Address Organization Details Last Updated DateTime 04/21/2023 156 mm[Hg] 85 mm[Hg] Brenda Carias [facility] 04/21/2023 14:55:08 Date Recorded Systolic blood pressure Diastolic blood pressure Provider Name and Address Organization Details Last Updated DateTime 04/21/2023 126 mm[Hg] 80 mm[Hg] ABRAM ARVIZU Attn: Accounting,[address], [place], [address], [place] - [place] 04/21/2023 15:29:36 Date Recorded Systolic blood pressure Diastolic blood pressure Provider Name and Address Organization Details Last Updated DateTime 09/07/2023 111 mm[Hg] 75 mm[Hg] Yovana Sandoval [place] [facility] 09/07/2023 15:18:01 Social History Question Answer Notes LastModified by Organizat ion Details LastModified Time Tobacco Smoking Status Current Every Day Smoker Alysa Payne MA [facility], [place] - [facility] 09/30/2017 16:10:37 Do You Have An Advance Directive? No [email or web address] Information not available 07/01/2022 What Is Your Level Of Alcohol Consumption? None Information not available 09/30/2017 What Is Your Level Of Caffeine Consumption? Occasional [email or web address] Information not available 07/01/2022 In The 14 Days Before Symptom Onset, Have You Had Close Contact With A Laboratory-confir med COVID-19 While That Case Was Ill? No [email or web address] Information not available 07/01/2022 In The 14 Days Before Symptom Onset, Have You Had Close Contact With A Person Who Is Under Investigation For COVID-19 While That Person Was Ill? No [email or web address] Information not available 07/01/2022 Have You Been To An Area Known To Be High Risk For COVID-19? No Information not available 07/01/2022 Which Illicit Or Recreational Drugs Have You Used? Denies Information not available 09/30/2017 Are There Any Guns Present In Your Home? No [email or web address] Information not available 07/01/2022 What Was The Date Of Your Most Recent Tobacco Screening? 09/07/2023 [email or web address] Information not available 09/07/2023 Do You Have Smoke And Carbon Monoxide Detectors In Your Home? Yes Information not available 07/01/2022 Are You Passively Exposed To Smoke? No [email or web address] Information no t available 07/01/2022 How Much Tobacco Do You Smoke? 1 PPD [email or web address] Information not available 09/30/2017 Do You Use Sunscreen Routinely? No Information not available 07/01/2022 Has Tobacco Cessation Counseling Been Provided? Yes [email or web address] Information not available 07/01/2022 On What Date Was Tobacco Cessation Counseling Provided? 09/07/2023 Information not available 09/07/2023 How Many Years Have You Smoked Tobacco? 30 [email or web address] Information not available 09/30/2017 Do You Or Have You Ever Used Any Other Forms Of Tobacco Or Nicotine? No [email or web address] Information not available 07/01/2022 Sex: Male Functional Status None recorded. Mental Status None recorded. Family History Relationship Description Onset Age of this Age Resolved Age Notes LastModified by Organization Details LastModified Time Father Coronary arterioscler [email or web address] 65 Not available 2017 16:38:45 Father Cerebrovascu lar accident Not available 02/2018 16:39:00 Paternal Uncle Coronary arterioscler osis 58 Not available 2017 16:38:45 Paternal Uncle Coronary arterioscler osis 47 Not available 2017 16:38:45 Medical History Condition Response Coronary Artery Disease N Other N High Blood Pressure N Atrial Fibrillation N Kidney or Bladder Problems N Thyroid Problems N GI Problems N Depression N COPD N Blood Clots N Skin Problems N Anemia N Heart Attack (ID) N Anxiety Disorder N Diabetes N Muscle, Joint, or Bone Problems N Seizures/Epilepsy N Acid Reflux (GERD) N Cancer N Stroke N Asthma N Allergies N High Cholesterol N Hepatitis N Liver Disease N Headaches N Heart Failure N Osteoporosis N Past Encounters Encounter ID Performer Location Encounter Start Date Encounter Closed Date Diagnosis/Indication Diagnosis SNOMED-CT Code Diagnosis ICD10 Code Diagnosis Note [id number] Neeta Marroquin [address] [place] [address] 09/30/2017 15:59:49 10/05/2017 10:42:05 Low back pain 592000132 M54.5 Acute on chronic pain. About 2 weeks. Flexeril PRN. FADIR/FABE R positive. XR lower back neg. Conservati ve management . Consider PT. Hip pain 15609308 M25.55 1 Acute on chronic pain.About 2 weeks. Lumbar spinal tenderness . Left paraspinal tenderness . M/S ok. SL neg. XR right hip neg. Conservati ve management . Consider PT. [id number] Gregory goodman MD [facility] [address] [place] [address] 07/01/2022 15:19:58 07/01/2022 16:16:23 Depression screening 438681254 Z13.31 PHQ 1was on lexapro in the past, no relief Adult heal th examination 965971420 Z00.00 routine labs Smoker 18716517 F17.200 1 ppdnot amendable to quitting at this time Chronic pain 98783103 G8 9.29 c/o LBP and bilateral hip pain, told he has arthritisw alks with a canetakes tylenol and gabapentin dailywent to PT in the past, [facility] discuss XR results and pain management referral at f/u [facility] records from [place] Blurring o f visual image 960334516 H53.8 superficia l cyst L medial aspect nasal bridgeaffe cting visionrefe r to eye dr Screening for malignant neoplasm of colon 250338665 Z12.11 per patient UTD on colonoscop y, done at [facility] request records Tachycardia 9008719 R00. 0 HR 96-140on metoprolol 50, did not take today Alcohol dependence 77956 003 F10.20 since age 15drinks [place] beer every day, 2-6 beersnot amendable to cessation at this time [id number] ABRAM ARVIZU [facility] [address] [place] [address] 07/29/2022 11:52:21 07/29/2022 12:55:37 Depression screening 775698722 Z13.31 07/29/22:PH Q 16attribut es to chronic pain 06/30/22:PH Q 1was on lexapro in the past, no relief Lumbar radiculopathy 128 [id number] M54.16 11/2021: XR lumbar shows mild to moderate DDD to L3-E9ioutt olya bolt shooting pain from thighs into toes, toes are on firecomple kimberly PT last fall, states that it didn't helpwill order MRI lumbar spinerefer to PM Chronic pain [id number] G8 9.29 07/29/22:re cords from 11/2021: XR lumbar shows mild to moderate DDD to L3-S1, XR hips and pelvis shows bilateral moderate hip PA with moderate joint space narrowings tates that he has been using cane for 1 yr due to balance issues and knees giving out lightn ing bolt shooting pain from thighs into toes, toes are on firetaking gabapentin 800 mg TID with mild reliefno loss of bowel/blad meri or saddle anesthesia PEx- limited ROM of lumbar spine due to pain, able to perform lumbar flexion, lateral rotation, limited ROM with lumbar extensiont rial lyrica, stop gabapentin wants to be checked for RArefer to pain management 07/01/22:c/ o LBP and bilateral hip pain, told he has arthritisw alks with a canetakes tylenol and gabapentin dailywent to PT in the past, does exercises [facility] discuss XR results and pain management referral at f/u [facility] kimberly records from [place] Tachycardia [id number] R00. 0 07/29/22:HR 101, took metoprolol today 06/30/22:HR 96-140on metoprolol 50, did not take today Blurring o f visual image [id number] H53.8 07/29/22:pr inted off referral and encouraged pt to call to schedule appt 06/30/22:mario perficial cyst L medial aspect nasal bridgeaffe cting visionrefe r to eye dr Alcohol dependence 79175 003 F10.20 07/29/22:no t amendable to cessation at this time 06/30/22:si nce age 15drinks [place] beer every day, 2-6 beersnot amendable to cessation at this time Smoker [id number] F17.200 1 ppdnot amendable to quitting at this time Screening for malignant neoplasm of colon 770229725 Z12.11 per patient UTD on colonoscop y, done at [facility] request records Lymphocytosis [id number] D 72.820 re-check today [id number] Ashia Cast MD [facility] [address] [place] [address] 10/07/2022 12:38:28 10/09/2022 10:32:40 Cyst of eyelid 63711178 H02.384 [id number] ABRAM ARVIZU [facility] [address] [place] [address] 04/21/2023 14:50:51 04/21/2023 15:41:27 Lumbar radiculopathy [id number] M54.16 04/21/23: saw PM 10/20/22: rec'd steroid injections to lumbar spine, pt doesn't like needles has been using lidocaine patchesMRI 08/20/2022: L1-L3 normal, minimal disc bulge L4-L5, L5-S1, mild bilateral narrowing of foramen at L4-L5, no compressio n deformity or slipping of discs 11/2021: XR lumbar shows mild to moderate DDD to L3-H7dpnpq olya bolt shooting pain from thighs into toes, toes are on firecomple kimberly PT last fall, states that it didn't helpwill order MRI lumbar spinerefer to PM Tachycardia [id number] R00. 0 04/21/23: HR 96Dr. Safi will not remove eye cyst under general anesthesia with HR in 90sadd metoprolol 25 mg to current dose of 50 mgf/u in 1 mo 07/29/22:HR 101, took metoprolol today 06/30/22:HR 96-140on metoprolol 50, did not take today Alcohol dependence 68501 003 F10.20 04/21/23: [facility] 07/29/22:no t amendable to cessation at this time 06/30/22:si nce age 15drinks [place] beer every day, 2-6 beersnot amendable to cessation at this time Smoker 96752450 F17.200 1 ppd for 40 yrsnot amendable to quitting at this timeordere d LDCT scan Depression screening 171 567443 Z13.31 04/21/23: PHQ 1 07/29/22:PH Q 16attribut es to chronic pain 06/30/22:PH Q 1was on lexapro in the past, no relief Pain of ri ght knee joint 8604129129 23464 M25.561 fell 3 wks ago outside trailer parkc/o pain with walking, unsteady, swollenusi ng lidocaine patch and tylenolFRO M R knee joint, waddling gait due to painordere d XR knee Edema of l ower extremity 013136811 R60.0 L ankle > R anklePEx- 1+ pitting edema to L anklecheck BNP Hallucinations 6920012 R 44.3 concerned that trailer he lived in has black moldhalluc inations x3 wkswill discuss at f/u visit, pt has h/o alcohol dependence [id number] Ashia Cast MD [facility] [address] [place] [address] 04/20/2023 12:23:11 04/21/2023 09:00:07 Cyst of eyelid 57059287 H02.415 [id number] ABRAM ARVIZU [facility] [address] [place] [address] 09/07/2023 15:13:11 09/07/2023 15:52:19 Lumbar radiculopathy 847628494 M54.16 09/07/23: will increase lyrica dose from 100 BID to 200 BID, no relief with lidocaine patchneeds repeat XRs, last MRI 08/202204/21/23: saw PM 10/20/22: rec'd steroid injections to lumbar spine, pt doesn't like needles has been using lidocaine patchesMRI 08/20/2022: L1-L3 normal, minimal disc bulge L4-L5, L5-S1, mild bilateral narrowing of foramen at L4-L5, no compressio n deformity or slipping of discs 11/2021: XR lumbar shows mild to moderate DDD to L3-G5zdwcu olya bolt shooting pain from thighs into toes, toes are on firecomple kimberly PT last fall, states that it didn't helpwill order MRI lumbar spinerefer to PM Tachycardia [id number] R00. 0 09/07/23: has been taking 50 mg, HR 103 today 04/21/23: HR 96DrFelix Cast will not remove eye cyst under general anesthesia with HR in 90sadd metoprolol 25 mg to current dose of 50 mgf/u in 1 mo 07/29/22:HR 101, took metoprolol today 06/30/22:HR 96-140on metoprolol 50, did not take today Chronic pain 01241477 G8 9.29 09/07/23: saw PM 10/20/22: rec'd steroid injections to lumbar spine, pt doesn't like needles, has been using lidocaine patchesc/o worsening low back and hip painneeds UTD XRs, will increase lyrica dose 07/29/22:re cords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
--- OUTSIDE RECORDS SUMMARY | 2024-04-17 14:26 | XMS_ITS | Patient Health Record ---
Author Organization [facility] Address [address] [place] [address] Care Team Providers Care X Ray Electronics Wiring Technician Name Role Phone Saurabh Grimes Primary Care Provider Allergies No Known Allergies Reason For Referral No Information Medications Medication SIG (Take, Route, Frequency, Duration) Notes Start Date End Date Status Gabapentin 400 MG 1 capsule Orally Thr ee times a day Active Acetaminophen 500 MG 1 capsule as needed Orally every 6 hrs Active Metoprolol Succinate ER 50 MG TAKE 1 TABLET BY MOUTH EVERY DAY for 30 Active Escitalopram Oxalate 20 MG 1 tablet Oral ly Once a day Not-Taking traMADol HCl 50 MG 1 tablet as needed Orally Every 6 hours Active Social History Tobacco Use: Social History Observation Description Date Details (start date - stop date) Current Smoker NA - NA Tobacco Use/Smoking Question Answer Notes Are you a current smoker How often do you smoke cigarettes? every day How many cigarettes a day do you smoke? 11-20 How soon after you wake up d o you smoke your first cigarette? within 5 minutes Are you interested in quitting? Thinking about q uitting Alcohol Screen (Audit-C) Question Answer Notes Did you have a drink contain ing alcohol in the past year? Yes How often did you have a dri nk containing alcohol in the past year? 4 or more times a week (4 points) How many drinks did you have on a typical day when you were drinking in the past year? 3 or 4 drinks (1 point) How often did you have 6 or more drinks on one occasion in the past year? Monthly (2 points) Points 7 Interpretation Positive Problems Problem Type SNOMED Code ICD Code Onset Dates Problem Status W/U Status Risk Notes Problem 77383589 Other chronic pain (G89.29) Active confirmed Problem 164683872 Lumbago with sciatica, right side (M54.41) Active confirmed Problem 81556340 Anxiety (F41.9) Active confirmed Problem Localized, primary osteoarthritis of the pelvic region and thigh (350091269) Osteoarthritis of left hip (M16.12) Active confirmed Problem 19814985 Gait abnormality (R26.9) Active confirmed Problem 346762215 Pulmonary nodule (R91.1) Active confirmed Problem Lumbar spondylosis (994537464) Lumbar spondylosis (M47.816) Active confirmed Problem Localized, primary osteoarthritis of the pelvic region and thigh (664709930) Osteoarthritis of right hip (M16.11) Active confirmed Problem 902402561 Tobacco use disorder (F17.200) Active confirmed Problem Hyperlipidaemia (43288236) HLD (hyperlipidemia) (E78.5) Active confirmed Problem 45824658 Recurrent major depressive disorder, in full remission (F33.42) Active confirmed Problem 53582181 Primary hypertension (I10) Active confirmed Plan Of Treatment No Information Insurance Providers Payer Name Payer Address Payer Phone Subscriber Number Group Number Insured Name Patient Relationship to Insured Coverage Start Date Coverage End Date [employer] [address] [place] [address] [id number] RIO RADER Self - patient is the insured 0 Medical (General) History Surgical History Surgery Date(Month/Year)
--- OUTSIDE RECORDS SUMMARY | 2024-04-17 14:26 | XMS_ITS | Clinical Summary ---
Author Organization [facility] Address [address] [place] [address] Phone Care Team Providers Care Red Hat Engineer Name Role Phone Neeta Chao MD Primary Care Provider Allergies No known active allergies Medications No known medications Social History Tobacco Use Types Packs/Day Years Used Date Smoking Tobacco: Every Day Cigarettes Sex and Gender Information Value Date Recorded Sex Assigned at Not on file Legal Sex Male 2:51 PM CDT Gender Identity Not on file Sexual Orientation Not on file Last Filed Vital Signs Vital Sign Reading Time Taken Comments Blood Pressure 147/90 10/07/2015 2:55 PM CDT Pulse 119 10/07/2015 2:55 PM CDT Temperature 36.9 ??C (98.5 ??F) 10/07/2015 2:55 PM CD T Respiratory Rate 18 10/07/2015 2:55 PM CDT Oxygen Saturation 97% 10/07/2015 2:55 PM CDT Inhaled Oxygen Concentration - - Weight 70.3 kg (155 lb) 10/07/2015 2:55 PM CDT Height 177.8 cm (5' 10 ) 10/07/2015 2:55 PM CDT Body Mass Index 22.24 10/07/2015 2:55 PM CDT Plan of Treatment Health Maintenance Due Date Last Done Comments Hepatitis C Virus (HCV) Screening 1965 TdaP Immunization 1965 Colonoscopy 2008 Colorectal Cancer Screening 2008 Cologuard 2013 Immunochemical Fecal Occult Blood 2013 Pneumococcal Immunization (5 0+ years) (1 of 1 - PCV) 2013 Zoster Immunization (1 of 2) 2013 PSA Discussion 2018 Influenza Immunization (#1) 2023 SARS-COV-2 Immunization (3 - season) 2023 08/29/2020, 07/29/2020 Respiratory Syncytial Virus (RSV) Immunization (Adult) (1 - 1-dose 75+ series) 2038 Hepatitis B Immunization Aged Out No longer eligible based on patient's age to complete this topic Meningococcal Immunization (ACWY) Aged Out No longer eligible b ased on patient's age to complete this topic Pneumococcal Immunization Combined Aged Out No longer eligible b ased on patient's age to complete this topic Rotavirus Immunization Aged Out No lo nger eligible based on patient's age to complete this topic Insurance [place]ICA[place] Care Teams Red Hat Engineer Relationship Specialty Start Date End Date Alyssag Neeta Grant MD [address] [place] [address] [address] [place] [address] PCP - General Family Medicine 09/30/17
== END 2024-04-17 13:39 | disposition home or self-care (01) ==
PROVIDERS: PCP Internal Medicine; Visit Provider Plastic Surgery
DX: R22.0 Localized swelling, mass and lump, head (principal)
CPT/HCPCS: 76536

== ENCOUNTER 2024-05-03 10:05 | Outpatient (CLI) | payer OTHER, MEDICAID, SELFPAY ==
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
--- NOTE | ~2024-05-03 | XR_ITS ---
EXAMINATION: XR abdomen/kub 1V DATE: 05/03/2024 10:45 INDICATION: Foreign body. TECHNIQUE: A supine view of the abdomen was obtained. COMPARISON: Lumbar spine radiograph 01/18/2024 FINDINGS: There are no dilated loops of bowel. There are four 3 mm radiopaque foreign bodies overlyin g the right lower quadrant and right pelvis. IMPRESSION: 1. Radiopaque foreign bodies overlying the right lower quadrant and right pelvis, new from 01/18/2024 . Reviewed, dictated and finalized at location A. LY DENTIST IMPRESSION: 1. Radiopaque foreign bodies overlying the right lower quadrant and right pelvi s, new from 01/18/2024.
--- OUTSIDE RECORDS SUMMARY | 2024-05-03 11:05 | XMS_ITS | Patient Health Record ---
Author Organization [facility] Address [address] [place] [address] Care Team Providers Care Pairer Substandard Name Role Phone Saurabh Grimes Primary Care [...] Problem Status W/U Status Risk Notes Problem 28516085 Other chronic pain (G89.29) Active confirmed Problem 396655851 Lumbago with sciatica, right side (M54.41) Active confirmed Problem 72603156 Anxiety (F41.9) Active confirmed Problem Localized, primary osteoarthritis of the pelvic region and thigh (373584280) Osteoarthritis of left hip (M16.12) Active confirmed Problem 59319247 Gait abnormality (R26.9) Active confirmed Problem 671005210 Pulmonary nodule (R91.1) Active confirmed Problem Lumbar spondylosis (278128269) Lumbar spondylosis (M47.816) Active confirmed Problem Localized, primary osteoarthritis of the pelvic region and thigh (415754510) Osteoarthritis of right hip (M16.11) Active confirmed Problem 756850874 Tobacco use disorder (F17.200) Active confirmed Problem Hyperlipidaemia (48202035) HLD (hyperlipidemia) (E78.5) Active confirmed Problem 93922278 Recurrent major depressive disorder, in full remission (F33.42) Active confirmed Problem 53776220 Primary hypertension (I10) Active confirmed Plan Of Treatment No Information Insurance Providers Payer Name Payer Address Payer Phone Subscriber Number Group Number Insured Name Patient Relationship to Insured Coverage Start Date Coverage End Date [facility] [address] [place] [address] [id number] RIO RADER Self - patient is the insured 0 Medical (General) History Surgical History Surgery Date(Month/Year)
--- OUTSIDE RECORDS SUMMARY | 2024-05-03 11:05 | XMS_ITS | Clinical Summary ---
Author Organization [facility] Address [address] [place] [address] Phone Care Team Providers Care Plate Take Out Worker Name Role Phone SABRINA BRYSON PA-C Primary Care Provider [phone] Reason for Visit and Chief Complaint The Chief Complaint is: REFERRED BY SABRINA BRYSON FOR OTHER CHRONIC PAIN Plan of Treatment Pending Tests Order Diagnosis Results Due Ordering P rovider Pain Management CPT - Epidural Steroid Inj Transforaminal, Lumbar or Sacral 1st level Spinal stenosis, lumbar region with neurogenic claudication 11/19/22 MEGGAN ARREAGA ANP-BC Last Documented On 9:46AM ; [facility] Assessments Includes: Assessments from this encounter Findings - Lumbar spondylosis with radiculopathy [M47.26 - Other spondylosis with radiculopathy, lumbar region] - Last Documented On 10/20/2022 11:58AM ; [facility] - Lumbar stenosis with neurogenic claudication [M48.062 - Spinal stenosis, lumbar region with neurogenic claudication] - Last Documented On 10/20/2022 11:58AM ; [facility] - Alcohol dependence uncomplicated [F10.20 - Alcohol dependence, uncomplicated] - Last Documented On 10/20/2022 11:58AM ; [facility] - Chronic pain syndrome [G89.4 - Chronic pain syndrome] - Last Documented On 10/20/2022 11:58AM ; [facility] Medical Equipment - Implanted Devices Includes: Current Devices No Medical Equipment Recorded Medications Includes: Medications discussed during this encounter and other current Medications Discontinued / Stopped on this date JANNIE CORLEY DO on 06/08/2022 Gabapentin 400 MG Oral Capsule Provider: JANNIE CORLEY DO Diagnosis: Last Documented On 3 11:09AM By Nova HOOVER ; [facility] New / Renewed during this visit MEGGAN CRAWFORD on 10/20/2022 Lidocaine 5% External Patch Provider: MEGGAN CRAWFORD 30 day supply: 30 patch, 2 refills Diagnosis: Spinal stenosis, lumbar region with neurogenic claudication as directed apply patch to a ffected area for 12 hours and remove for 12 hours Pharmacy: [facility] - [address] [address], [id number] - Last Documented On 3 11:51AM By MEGGAN CRAWFORD ; [facility] Current Medications (continue as prescribed) ALPRAZolam 0.5 MG Oral Tablet 11/10/2022 Provider: MEGGAN CRAWFORD Diagnosis: as directed 1 po 1 hour prio r to procedure, 1 po 30 minutes prior to procedure Last Documented On 3 11:36AM By MEGGAN CRAWFORD ; [facility] Tylenol Extra Strength 500 MG Oral Tablet 10/20/2022 Provider: Diagnosis: Last Documented On 3 11:09AM By Nova HOOVER ; [facility] Pregabalin 100 MG Oral Capsule 09/21/2022 Provider: SABRINA BRYSON PA-C Diagnosis: Last Documented On 3 10:48AM By Nova HOOVER ; [facility] Metoprolol Tartrate 50 MG Oral Tablet 09/21/2022 Pro vider: SABRINA BRYSON PA-C Diagnosis: Last Documented On 3 10:49AM By Nova HOOVER ; [facility] Medications Administered Includes: Administered [...] Last Documented: On 10/20/2022 11:06A M ; [facility] Results Includes: Results discussed [...] pain some. Nerve study recently done at [place], we will obtain this test. Otherwise, imaging [...] 10/20/2022 Last Documented On 3 11:58AM ; [facility] Alcohol 10/20/2022 Last Documented On 3 11:58AM ; [facility] Amount of alcohol per day: 3-4 3 Last Documented On 3 11:58AM ; [facility] Difficulty walking 10/20/2022 Last Documented On 3 11:58AM ; [facility] Not using drugs 10/20/2022 Last Documented On 3 11:58AM ; [facility] Smoking packs of cigarettes per day 1 Last Documented On 3 11:58AM ; [facility] Smoking Status Unknown Procedures and Surgical History Includes: Procedures from this encounter Procedures Code Diagnosis Performing Provider Service L ocation Service Date use of tobacco assessment performed 1000F Last Documented On 3 10:47AM ; [facility] review of medications documented 1160F Last Documented On 3 10:47AM ; [facility] screening for adult depression: impressi on and score six Last Documented On 3 11:10AM ; [facility] standardized depression screening: posit sirisha for symptoms Last Documented On 3 11:10AM ; [facility] Clinical summary provided to patient ~ Patient understands and agrees with treatment plan. Questions answered Last Documented On 3 10:47AM ; [facility] SOAPP-R: total score 25 Last Documented On 3 11:06AM ; [facility] Surgical History Last Updated No Pacemaker 10/20/2022 Last Documented On 3 11:58AM ; [facility] Medical History Includes: Medical History addressed during this encounter Description Last Updated Currently wearing eyeglasses 10/20/2022 Last Documented On 3 11:58AM ; [facility] Moderate to severe pain 10/20/2022 Last Documented On 3 11:58AM ; [facility] No Pain Pump 10/20/2022 Last Documented On 3 11:58AM ; [facility] No Spinal cord stimulator 10/20/2022 Last Documented On 3 11:58AM ; [facility] Uses a cane for support 10/20/2022 Last Documented On 3 11:58AM ; [facility] Family History Includes: Family History addressed during this encounter Description Last Updated Family history of Arthritis 10/20/2022 Last Documented On 3 11:58AM ; [facility] Paternal history of family history of is chemic heart disease 10/20/2022 Last Documented On 3 11:58AM ; [facility] Paternal history of stroke/paralysis 03/2022 Last Documented On 3 11:58AM ; [facility] Review of Systems Includes: Review of [...] Diagnosis PAIN MANAGEMENT NEW CONSULT MEGGAN CRAWFORD [facility] 10/21/19 23 11:02AM 11:42AM Chronic Pain Syndrome,Spinal Stenosis Lumbar with Neurogenic Claudication,Spo ndylosis with Radiculopathy Lumbar Region,Alcohol Dependence Uncomplicated Insurance Includes: Active Insurance Policies Plan Name Member ID Group # Subscriber Relationship Effect sirisha Dates 1 - [facility] PLANS [id number] RIO Guerrero Clinical Notes Includes: Clinical Notes from this encounter * Progress note Date Encounter Last Documented by 10/20/2022 PAIN MANAGEMENT NEW CONSULT Last documented on 10/20/2022; 11:58 AM, MEGGAN CRAWFORD; [facility] Chief Complaint The Chief [...] pain some. Nerve study recently done at [place], we will obtain this test. Otherwise, imaging [...] 50% of this time spent in direct [id number] counseling and coordination of care. Results of [...] but may be subject to typographical or cake wrapper errors. Verify all diagnoses, medications, dosages, and patient instructions with patient and/or the originator of this document. Health Reminders - Assess BMI satisfied 10/20/2022. - Assess Tobacco Use satisfied 10/20/2022. - Depression Screening satisfied 10/20/2022.
--- OUTSIDE RECORDS SUMMARY | 2024-05-03 11:05 | XMS_ITS ---
Care Plan - [facility] Created on: May 03, 2024 RIO RADER : 1965 Sex: Male Author Organization [facility] Address [address] [place] [address] Phone Care Team Providers Care Insole Presser Name Role Phone SABRINA BRYSON PA-C Primary Care Provider [phone]
--- OUTSIDE RECORDS SUMMARY | 2024-05-03 11:05 | XMS_ITS | Clinical Summary ---
Author Organization [facility] Address [address] [place] [address] Phone Care Team Providers Care Air Export Agent Name Role Phone SABRINA BRYSON PA-C Primary Care Provider [phone] Reason for Visit and Chief Complaint * [...] po 30 minutes prior to procedure Pharmacy: [facility] [address] [facility] [address], [id number] - Last Documented On 3 11:36AM By MEGGAN CRAWFORD ; [facility] Current Medications (continue as prescribed) Tylenol Extra Strength 500 MG Oral Tablet 10/20/2022 Provider: Diagnosis: Last Documented On 3 11:09AM By Nova HOOVER ; [facility] Lidocaine 5% External Patch 10/20/2022 Provider: MEGGAN CRAWFORD Diagnosis: Spinal stenosis, lumbar region with neurogenic claudication as directed apply patch to a ffected area for 12 hours and remove for 12 hours Last Documented On 3 11:51AM By MEGGAN CRAWFORD ; [facility] Pregabalin 100 MG Oral Capsule 09/21/2022 Provider: SABRINA BRYSON PA-C Diagnosis: Last Documented On 3 10:48AM By Nova HOOVER ; [facility] Metoprolol Tartrate 50 MG Oral Tablet 09/21/2022 Pro vider: SABRINA BRYSON PA-C Diagnosis: Last Documented On 3 10:49AM By Nova HOOVER ; [facility] Medications Administered Includes: Administered Medications from this encounter No Administered Medications Recorded Results Includes: Results discussed during this encounter No Results Recorded For Specified Dates History of Present Illness Includes: History of Present Illness from this encounter No History of Present Illness Recorded Social History Description Last Updated Current smoker 10/20/2022 Last Documented On 3 11:28AM ; [facility] Alcohol 10/20/2022 Last Documented On 3 11:28AM ; [facility] Amount of alcohol per day: 3-4 3 Last Documented On 3 11:28AM ; [facility] Difficulty walking 10/20/2022 Last Documented On 3 11:28AM ; [facility] Smoking packs of cigarettes per day 1 Last Documented On 3 11:28AM ; [facility] Smoking Status Unknown Medical History [...] Subscriber Relationship Effect sirisha Dates 1 - [facility] PLANS [id number] RIO E DIOR Self Clinical Notes Includes: Clinical Notes from this encounter * Progress note Date Encounter Last Documented by 11/10/2022 * PHONE CALL Last documented on 11/10/2022; 11:28 AM, MEGGAN ARREAGA ANP-; [facility] Current Medication - Lidocaine 5% [...]
--- OUTSIDE RECORDS SUMMARY | 2024-05-03 11:05 | XMS_ITS ---
Author Organization [facility] Address [address] [place] [address] Phone Care Team Providers Care Load Out Person Name Role Phone SABRINA BRYSON PA-C Primary Care Provider [phone] Plan of Treatment No Plan of Treatment Recorded Assessments Includes: Assessments for all patient encounters Findings Encounter Date Alcohol dependence uncomplicated PAIN MA NAGEMENT NEW CONSULT with MEGGAN CRAWFORD 10/20/2022 Last Documented On 3 11:58AM ; [facility] Chronic pain syndrome PAIN MANAGEMENT NE W CONSULT with MEGGAN CRAWFORD 10/20/2022 Last Documented On 3 11:58AM ; [facility] Lumbar spondylosis with radiculopathy PA IN MANAGEMENT NEW CONSULT with MEGGAN CRAWFORD 10/20/2022 Last Documented On 3 11:58AM ; [facility] Lumbar stenosis with neuroge candice claudication PAIN MANAGEMENT NEW CONSULT with MEGGAN CRAWFORD 10/20/2022 Last Documented On 3 11:58AM ; [facility] Medical Equipment - Implanted Devices Includes: Current and historical Devices No Medical Equipment Recorded Medications Includes: Current and historical Medications Current Medications (continue as prescribed) ALPRAZolam 0.5 MG Oral Tablet 11/10/2022 Provider: MEGGAN CRAWFORD Diagnosis: as directed 1 po 1 hour prio r to procedure, 1 po 30 minutes prior to procedure Last Documented On 3 11:36AM By MEGGAN CRAWFORD ; [facility] Tylenol Extra Strength 500 MG Oral Tablet 10/20/2022 Provider: Diagnosis: Last Documented On 3 11:09AM By Nova HOOVER ; [facility] Lidocaine 5% External Patch 10/20/2022 Provider: MEGGAN CRAWFORD Diagnosis: Spinal stenosis, lumbar region with neurogenic claudication as directed apply patch to a ffected area for 12 hours and remove for 12 hours Last Documented On 3 11:51AM By MEGGAN CRAWFORD ; [facility] Pregabalin 100 MG Oral Capsule 09/21/2022 Provider: SABRINA BRYSON PA-C Diagnosis: Last Documented On 3 10:48AM By Nova HOOVER ; [facility] Metoprolol Tartrate 50 MG Oral Tablet 09/21/2022 Pro vider: SABRINA BRYSON PA-C Diagnosis: Last Documented On 3 10:49AM By Nova HOOVER ; [facility] Past Medications on file Gabapentin 400 MG Oral Capsule 06/08/2022 - 10/20/2022 Provider: JANNIE CORLEY DO Diagnosis: Last Documented On 3 11:09AM By Nova HOOVER ; [facility] Medications Administered Includes: Administered Medications in patient's chart No Administered Medications Recorded Results Includes: Results from 05/03/2023 through 05/03/2024 No Results Recorded For Specified Dates History of Present Illness History of Present Illness not supported for this document type No History of Present Illness Recorded Social History Description Last Updated Current smoker 10/20/2022 Last Documented On 3 11:58AM ; [facility] Alcohol 10/20/2022 Last Documented On 3 11:58AM ; [facility] Amount of alcohol per day: 3-4 3 Last Documented On 3 11:58AM ; [facility] Difficulty walking 10/20/2022 Last Documented On 3 11:58AM ; [facility] Not using drugs 10/20/2022 Last Documented On 3 11:58AM ; [facility] Smoking packs of cigarettes per day 1 Last Documented On 3 11:58AM ; [facility] Smoking Status Unknown Procedures and Surgical History Surgical History Last Updated No Pacemaker 10/20/2022 Last Documented On 3 11:58AM ; [facility] Medical History Includes: Medical History in patient's chart Description Last Updated Currently wearing eyeglasses 10/20/2022 Last Documented On 3 11:58AM ; [facility] Moderate to severe pain 10/20/2022 Last Documented On 3 11:58AM ; [facility] No Pain Pump 10/20/2022 Last Documented On 3 11:58AM ; [facility] No Spinal cord stimulator 10/20/2022 Last Documented On 3 11:58AM ; [facility] Uses a cane for support 10/20/2022 Last Documented On 3 11:58AM ; [facility] Family History Includes: Family History in patient's chart Description Last Updated Family history of Arthritis 10/20/2022 Last Documented On 3 11:58AM ; [facility] Paternal history of family history of is chemic heart disease 10/20/2022 Last Documented On 3 11:58AM ; [facility] Paternal history of stroke/paralysis 03/2022 Last Documented On 3 11:58AM ; [facility] Review of Systems Review of Systems not [...] Subscriber Relationship Effect sirisha Dates 1 - [facility] PLANS [id number] RIO Guerrero Clinical Notes Includes: Signed Clinical Notes starting from 04/10/2022 No Clinical Notes Recorded
--- OUTSIDE RECORDS SUMMARY | 2024-05-03 11:06 | XMS_ITS | Data Portability ---
[facility] Organization [facility] Address [address] [place] [address] Care Team Providers Care Bioinformatics Technician Name Role Phone ELO BRYSON Primary Care Provider [phone] Assessment No assessment recorded. Plan of Treatment Reminders Order Date Submit Date Provider Last Modified By Organization Details Last Modified Time Details Appointments None recorded. Lab inflammatio n panel, serum or plasma 2022 023 [facility], [address] [place] [address], [address], [place], [address], 3 12:34:30 CBC w/ auto diff 2022 023 [email or web address] [facility], [address] [place] [address], [address], [place], [address], 3 12:34:30 BNP (B-type natriuretic peptide), serum or plasma 2023 024 [facility], [address] [facility], [address], [place], [address], 4 16:14:54 CMP, serum or plasma 2023 024 [facility], [address], [address], [address], 4 23:07:46 lipid panel, serum 2023 024 [facility], [address], [address], [place], [address], 4 23:07:46 CBC w/ auto diff 2023 024 [facility], [address], [address], [place], [address], 4 23:07:47 TSH + free T4, serum 2023 024 [facility], [address], [address], [place], [address], 4 15:19:52 HbA1c (hemoglobin A1c), blood 2023 024 [facility], [address], [address], [place], [address], 4 15:19:52 Referral pain management referral 2022 023 [facility], [address], [place], [address], 3 16:44:41 Procedures None recorded. Surgeries None recorded. Imaging MRI, lumbar spine, w/o contrast 2022 023 [facility] (Rad), [address] [place], [address], 3 13:07:58 LDCT, chest, for lung cancer screening 2023 024 [facility] (Imaging), [address] [place], [address], 4 16:17:44 XR, knee, 3 view 2023 024 [facility] (Imaging), [address] [place], [address], 4 16:05:26 XR, lumbosacral spine, 2 or 3 view 2023 024 [email or web address] [facility] ([facility] [address], [place], [address], 4 08:19:10 Medication Orders pregabalin 100 mg capsule 2022 023 [id number], [address] [place], [place], [id number], 4 13:04:50 metoprolol tartrate 25 mg tablet 2023 024 [facility] #[id number], [address] , [place], [place], [id number], 4 15:32:33 pregabalin 200 mg capsule 2023 024 [facility] #[id number], [address] , [place], [place], [id number], 4 15:56:15 Patient TargetsNo targets recorded. Patient Instructions Encounter Date Encounter Id Patient Instructions Last Modified By Organization Details Last Modified Time 10/07/2022 [id number] Ret in 1 week of Dec 12 to schedule surgery. [email or web address] Not available 10/07/2022 13:56:43 04/20/2023 [id number] I recommend removal of mass under general [...] total 190.3 mg/dL 140.0- 200.0 Not Available [facility] Department [address] [place], [address], 07/01/2022 20:09:31 07/02/19 23 07/01/2022 LIPID PANEL WITH LDL/H DL RATIO triglyceride s 82 mg/dL <=[address] [facility] Department [address] [place], [address], 07/01/2022 20:09:31 07/02/19 23 07/01/2022 LIPID PANEL WITH LDL/H DL RATIO HDL cholesterol 111.1 mg/dL 40.0-1 00.0 above high normal Not Available [facility] Department [address] [place], [address], 07/01/2022 20:09:31 07/02/19 23 07/01/2022 LIPID PANEL WITH LDL/H DL RATIO VLDL cholesterol kendra 16.40 mg/dL 5.00-4 0.00 Not Available [facility] Department [address] [place], [address], 07/01/2022 20:09:31 07/02/19 23 07/01/2022 LIPID PANEL WITH LDL/H DL RATIO LDL chol calc ([facility]) 64.7 Not Available [facility] Department [address] [place], [address], 07/01/2022 20:09:31 07/02/19 23 07/01/2022 LIPID PANEL WITH LDL/H DL RATIO LDL/HDL ratio 0.[address] [facility] Department [address] [place], [address], 07/01/2022 20:09:31 07/02/19 23 07/01/2022 COMP. METAB OLIC PANEL (14) glucose 87 mg/dL 65-99 ANION GP 25.0 mmol/ L N OSMOL 275.0 mOsM/ L N REFER ENCE RANGE : 275.0 -301. 0 Not Available [facility] Department [address] [place], [address], 07/01/2022 20:09:32 07/02/19 23 07/01/2022 COMP. METAB OLIC PANEL (14) BUN 7 mg/dL 8-26 below low normal Not Available [facility] Department [address] [place], [address], 07/01/2022 20:09:32 07/02/19 23 07/01/2022 COMP. METAB OLIC PANEL (14) creatinine 0.66 mg/dL 0.50-1 .40 Not Available [facility] Department [address] [place], [address], 07/01/2022 20:09:32 07/02/19 23 07/01/2022 COMP. METAB OLIC PANEL (14) eGFR 108 mL/mi n/1.7 3 >=60 Not Available [facility] Department [address] [place] [address], [address], 07/01/2022 20:09:32 07/02/19 23 07/01/2022 COMP. METAB OLIC PANEL (14) BUN/creatini ne ratio 10.[address] [facility] Department [address] [place], [address], 07/01/2022 20:09:32 07/02/19 23 07/01/2022 COMP. METAB OLIC PANEL (14) sodium 139.0 mmol/ L 136.0- 144.0 Not Available [facility] Department [address] [place] [address], [address], 07/01/2022 20:09:32 07/02/19 23 07/01/2022 COMP. METAB OLIC PANEL (14) potassium 4.4 mmol/ L 3.5-5. 3 Not Available [facility] Department [address] [place], [address], 07/01/2022 20:09:32 07/02/19 23 07/01/2022 COMP. METAB OLIC PANEL (14) chloride 99 mmol/ l 101-11 1 below low normal Not Available [facility] Department [address] [place] [address], [address], 07/01/2022 20:09:32 07/02/19 23 07/01/2022 COMP. METAB OLIC PANEL (14) carbon dioxide, total 20.0 mmol/ L 21.0-3 2.0 below low normal Not Available [facility] Department [address] [place], [address], 07/01/2022 20:09:32 07/02/19 23 07/01/2022 COMP. METAB OLIC PANEL (14) calcium 9.9 mg/dL 8.2-10 .0 Not Available [facility] Department [address] [place] [address], [address], 07/01/2022 20:09:32 07/02/19 23 07/01/2022 COMP. METAB OLIC PANEL (14) protein, total 7.9 g/dL 6.7-8. 2 Not Available [facility] Department [address] [place] [address], [address], 07/01/2022 20:09:32 07/02/19 23 07/01/2022 COMP. METAB OLIC PANEL (14) albumin 5.0 g/dL 3.5-5. 5 Not Available [facility] Department [address] [place], [address], 07/01/2022 20:09:32 07/02/19 23 07/01/2022 COMP. METAB OLIC PANEL (14) globulin, total 2.9 g/dL 1.5-4. 5 Not Available [facility] Department [address] [place], [address], 07/01/2022 20:09:32 07/02/19 23 07/01/2022 COMP. METAB OLIC PANEL (14) A/G ratio 1.7 Not Available [facility] Department [address] [place], [address], 07/01/2022 20:09:32 07/02/19 23 07/01/2022 COMP. METAB OLIC PANEL (14) bilirubin, total 0.7 mg/dL 0.0-1. 2 Not Available [facility] Department [address] [place], [address], 07/01/2022 20:09:32 07/02/19 23 07/01/2022 COMP. METAB OLIC PANEL (14) alkaline phosphatase 99.4 IU/L 42.0-1 21.0 Not Available [facility] Department [address] [place], [address], 07/01/2022 20:09:32 07/02/19 23 07/01/2022 COMP. METAB OLIC PANEL (14) AST (SGOT) 30.3 U/L 10.0-4 2.0 Not Available [facility] Department [address] [place], [address], 07/01/2022 20:09:32 07/02/19 23 07/01/2022 COMP. METAB OLIC PANEL (14) ALT (SGPT) 21.0 U/L 10.0-6 0.0 Not Available [facility] Department [address] [place], [address], 07/01/2022 20:09:32 07/02/19 23 07/01/2022 CBC WITH DIFFE RENTI AL/PL ATELE T WBC 5.8 K/uL 3.4-10 .8 Not Available [facility] Department [address] [place], [address], 07/01/2022 20:09:32 07/02/19 23 07/01/2022 CBC WITH DIFFE RENTI AL/PL ATELE T RBC 4.4 M/uL 4.5-6. 3 below low normal Not Available [facility] Department [address] [place], [address], 07/01/2022 20:09:32 07/02/19 23 07/01/2022 CBC WITH DIFFE RENTI AL/PL ATELE T hemoglobin 15.6 g/dL 13.5-1 7.5 Not Available [facility] Department [address] [place], [address], 07/01/2022 20:09:32 07/02/19 23 07/01/2022 CBC WITH DIFFE RENTI AL/PL ATELE T hematocrit 44.2 % 40.0-5 2.0 Not Available [facility] Department [address] [place], [address], 07/01/2022 20:09:32 07/02/19 23 07/01/2022 CBC WITH DIFFE RENTI AL/PL ATELE T MCV 101 fL 80-95 above high normal Not Available [facility] Department [address] [place], [address], 07/01/2022 20:09:32 07/02/19 23 07/01/2022 CBC WITH DIFFE RENTI AL/PL ATELE T MCH 36 pg 27-32 above high normal Not Available [facility] Department [address] [place], [address], 07/01/2022 20:09:32 07/02/19 23 07/01/2022 CBC WITH DIFFE RENTI AL/PL ATELE T MCHC 35 g/dL 32-36 Not Available [facility] Department [address] [place], [address], 07/01/2022 20:09:32 07/02/19 23 07/01/2022 CBC WITH DIFFE RENTI AL/PL ATELE T RDW 14.1 % 11.5-1 4.5 Not Available [facility] Department [address] [place], [address], 07/01/2022 20:09:32 07/02/19 23 07/01/2022 CBC WITH DIFFE RENTI AL/PL ATELE T platelets 207 K/uL 155-37 9 MPV 9.0 FL 8.9-1 2.7 N Not Available [facility] Department [address] [place], [address], 07/01/2022 20:09:32 07/02/19 23 07/01/2022 CBC WITH DIFFE RENTI AL/PL ATELE T neutrophils 30.2 % 40.0-7 4.0 below low normal Not Available [facility] Department [address] [place], [address], 07/01/2022 20:09:32 07/02/19 23 07/01/2022 CBC WITH DIFFE RENTI AL/PL ATELE T lymphs 60.0 % 14.0-4 6.0 above high normal Not Available [facility] Department [address] [place], [address], 07/01/2022 20:09:32 07/02/19 23 07/01/2022 CBC WITH DIFFE RENTI AL/PL ATELE T monocytes 6.2 % 4.0-12 .0 Not Available [facility] Department [address] [place], [address], 07/01/2022 20:09:32 07/02/19 23 07/01/2022 CBC WITH DIFFE RENTI AL/PL ATELE T eos 2 % 0-5 Not Available [facility] Department [address] [place], [address], 07/01/2022 20:09:32 07/02/19 23 07/01/2022 CBC WITH DIFFE RENTI AL/PL ATELE T basos 1.6 % 0.0-1. 0 above high normal Not Available [facility] Department [address] [place], [address], 07/01/2022 20:09:32 07/02/19 23 07/01/2022 CBC WITH DIFFE RENTI AL/PL ATELE T neutrophils (absolute) 1.8 K/uL 1.4-7. 0 Not Available [facility] Department [address] [place], [address], 07/01/2022 20:09:32 07/02/19 23 07/01/2022 CBC WITH DIFFE RENTI AL/PL ATELE T lymphs (absolute) 3.5 K/uL 0.7-3. 1 above high normal Not Available [facility] Department [address] [place], [address], 07/01/2022 20:09:32 07/02/19 23 07/01/2022 CBC WITH DIFFE RENTI AL/PL ATELE T monocytes(ab solute) 0.4 K/uL 0.1-0. 9 Not Available [facility] Department [address] [place], [address], 07/01/2022 20:09:32 07/02/19 23 07/01/2022 CBC WITH DIFFE RENTI AL/PL ATELE T eos (absolute) 0.1 K/uL 0.0-0. 4 Not Available [facility] Department [address] [place], [address], 07/01/2022 20:09:32 07/02/19 23 07/01/2022 CBC WITH DIFFE RENTI AL/PL ATELE T baso (absolute) 0.1 K/uL 0.0-0. 3 Not Available [facility] Department [address] [place], [address], 07/01/2022 20:09:32 07/02/19 23 07/01/2022 CBC WITH DIFFE RENTI AL/PL ATELE T immature granulocytes 0.3 % Not Available [facility] Department [address] [place], [address], 07/01/2022 20:09:32 07/02/19 23 07/01/2022 CBC WITH DIFFE RENTI AL/PL ATELE T immature grans (abs) 0.0 K/uL Not Available [facility] Department [address] [place], [address], 07/01/2022 20:09:32 07/02/19 23 07/01/2022 CBC WITH DIFFE RENTI AL/PL ATELE T NRBC 0 % Not Available [facility] Department [address] [place], [address], 07/01/2022 20:09:32 07/02/19 23 07/02/2022 TSH+F REE T4 TSH 1.620 uIU/m L 0.450- 4.500 Not Available [facility] ([facility]) [address] [facility], [place], [address], 07/02/2022 08:25:49 07/02/19 23 07/02/2022 TSH+F REE T4 T4,free(dire ct) 1.36 NG/dL 0.82-1 .77 Not Available [facility] ([facility]) [address] [facility], [place], [address], 07/02/2022 08:25:49 07/02/1907/02/2022 HEMOG LOBIN A1C hemoglobin A1C 5.4 % 4.8-5. 6 Predi abete s: 5.7 - 6.4 Diabe sharmila: >6.4 Glyce chelsey contr ol for adult s with diabe sharmila: <7.0 Not Available [facility] ([facility]) [address] [facility], [place], [address], 07/02/2022 08:25:50 07/02/1907/01/2022 MANUA L ALEXE RENTI AL neutrophils 20 % Not Available [facility] Department [address] [place], [address], 07/01/2022 23:07:38 07/02/19 23 07/01/2022 MANUA L DIFFE RENTI AL lymphs 75 % 14-46 above high normal Not Available [facility] Department [address] [place], [address], 07/01/2022 23:07:38 07/02/19 23 07/01/2022 MANUA L DIFFE RENTI AL monocytes 2 % Not Available [facility] Department [address] [place], [address], 07/01/2022 23:07:38 07/02/19 23 07/01/2022 MANUA L DIFFE RENTI AL RBC comment Commen t RBCMO RP DORA L N Not Available [facility] Department [address] [place], [address], 07/01/2022 23:07:38 07/02/19 23 07/01/2022 MANUA L DIFFE RENTI AL platelet comment Commen t PLATE LETS DORA L N Not Available [facility] Department [address] [place], [address], 07/01/2022 23:07:38 07/30/19 23 07/29/2022 CBC WITH DIFFE RENTI AL/PL ATELE T WBC 5.4 K/uL 3.4-10 .8 Not Available [facility] Department [address] [place], [address], 07/29/2022 18:09:35 07/30/19 23 07/29/2022 CBC WITH DIFFE RENTI AL/PL ATELE T RBC 4.2 M/uL 4.5-6. 3 below low normal Not Available [facility] Department [address] [place], [address], 07/29/2022 18:09:35 07/30/19 23 07/29/2022 CBC WITH DIFFE RENTI AL/PL ATELE T hemoglobin 14.9 g/dL 13.5-1 7.5 Not Available [facility] Department [address] [place], [address], 07/29/2022 18:09:35 07/30/19 23 07/29/2022 CBC WITH DIFFE RENTI AL/PL ATELE T hematocrit 42.7 % 40.0-5 2.0 Not Available [facility] Department [address] [place], [address], 07/29/2022 18:09:35 07/30/19 23 07/29/2022 CBC WITH DIFFE RENTI AL/PL ATELE T MCV 103 fL 80-95 above high normal Not Available [facility] Department [address] [place], [address], 07/29/2022 18:09:35 07/30/1907/29/2022 CBC WITH DIFFE RENTI AL/PL ATELE T MCH 36 pg 27-32 above high normal Not Available [facility] Department [address] [place], [address], 07/29/2022 18:09:35 07/30/1907/29/2022 CBC WITH DIFFE RENTI AL/PL ATELE T MCHC 35 g/dL 32-36 Not Available [facility] Department [address] [place], [address], 07/29/2022 18:09:35 07/30/1907/29/2022 CBC WITH DIFFE RENTI AL/PL ATELE T RDW 13.3 % 11.5-1 4.5 Not Available [facility] Department [address] [place], [address], 07/29/2022 18:09:35 07/30/1907/29/2022 CBC WITH DIFFE RENTI AL/PL ATELE T platelets 189 K/uL 155-37 9 MPV 9.4 FL 8.9-1 2.7 N Not Available [facility] Department [address] [place], [address], 07/29/2022 18:09:35 07/30/1907/29/2022 CBC WITH DIFFE RENTI AL/PL ATELE T neutrophils 28.9 % 40.0-7 4.0 below low normal Not Available [facility] Department [address] [place], [address], 07/29/2022 18:09:35 07/30/1907/29/2022 CBC WITH DIFFE RENTI AL/PL ATELE T lymphs 57.5 % 14.0-4 6.0 above high normal Not Available [facility] Department [address] [place], [address], 07/29/2022 18:09:35 07/30/19 23 07/29/2022 CBC WITH DIFFE RENTI AL/PL ATELE T monocytes 9.3 % 4.0-12 .0 Not Available [facility] Department [address] [place], [address], 07/29/2022 18:09:35 07/30/19 23 07/29/2022 CBC WITH DIFFE RENTI AL/PL ATELE T eos 2 % 0-5 Not Available [facility] Department [address] [place], [address], 07/29/2022 18:09:35 07/30/19 23 07/29/2022 CBC WITH DIFFE RENTI AL/PL ATELE T basos 1.7 % 0.0-1. 0 above high normal Not Available [facility] Department [address] [place], [address], 07/29/2022 18:09:35 07/30/19 23 07/29/2022 CBC WITH DIFFE RENTI AL/PL ATELE T neutrophils (absolute) 1.6 K/uL 1.4-7. 0 Not Available [facility] Department [address] [place], [address], 07/29/2022 18:09:35 07/30/19 23 07/29/2022 CBC WITH DIFFE RENTI AL/PL ATELE T lymphs (absolute) 3.1 K/uL 0.7-3. 1 Not Available [facility] Department [address] [place], [address], 07/29/2022 18:09:35 07/30/19 23 07/29/2022 CBC WITH DIFFE RENTI AL/PL ATELE T monocytes(ab solute) 0.5 K/uL 0.1-0. 9 Not Available [facility] Department [address] [place], [address], 07/29/2022 18:09:35 07/30/19 23 07/29/2022 CBC WITH DIFFE RENTI AL/PL ATELE T eos (absolute) 0.1 K/uL 0.0-0. 4 Not Available [facility] Department [address] [place], [address], 07/29/2022 18:09:35 07/30/19 23 07/29/2022 CBC WITH DIFFE RENTI AL/PL ATELE T baso (absolute) 0.1 K/uL 0.0-0. 3 Not Available [facility] Department [address] [place], [address], 07/29/2022 18:09:35 07/30/19 23 07/29/2022 CBC WITH DIFFE RENTI AL/PL ATELE T immature granulocytes 0.9 % Not Available [facility] Department [address] [place], [address], 07/29/2022 18:09:35 07/30/19 23 07/29/2022 CBC WITH DIFFE RENTI AL/PL ATELE T immature grans (abs) 0.1 K/uL Not Available [facility] Department [address] [place], [address], 07/29/2022 18:09:35 07/30/19 23 07/29/2022 CBC WITH DIFFE RENTI AL/PL ATELE T NRBC 0 % Not Available [facility] Department [address] [place], [address], 07/29/2022 18:09:35 04/21/19 24 04/22/2023 B-TYP E [...] XP metho dolog y Not Available [facility] ([facility]) [address] [facility], [place], [address], 04/22/2023 16:14:54 04/21/19 24 04/22/2023 SPECI MEN STATU S REPOR T specimen status report TNP Test not perfo rmed. Gel barri er tube unsui table for test order ed. Test not perfo rmed. Attem pts to conta ct your facil ity were unsuc cessf ul. TEST: [id number] B-Typ e Natri ureti c Pepti de SPECI MEN REQUI RED:F ROZEN PLASM A TRANS NEHAL TUBE Not Available [facility] ([facility]) [address] [facility], [place], [address], 04/22/2023 16:14:54 09/07/19 24 09/09/2023 LIPID PANEL WITH LDL/H DL RATIO cholesterol, total 191 mg/dL 100-19 9 Not Available [facility] Department [address] [place] [address], [address], 09/09/2023 23:07:46 09/07/19 24 09/09/2023 LIPID PANEL WITH LDL/H DL RATIO triglyceride s 108 mg/dL 0-[address] [facility] Department [address] [place] [address], [address], 09/09/2023 23:07:46 09/07/19 24 09/09/2023 LIPID PANEL WITH LDL/H DL RATIO HDL cholesterol 120 mg/dL 40-999 Not Available [facility] Department [address] [place] [address], [address], 09/09/2023 23:07:46 09/07/19 24 09/09/2023 LIPID PANEL WITH LDL/H DL RATIO VLDL cholesterol kendra 22 mg/dL 5-[address] [facility] Department [address] [place] [address], [address], 09/09/2023 23:07:46 09/07/19 24 09/09/2023 LIPID PANEL WITH LDL/H DL RATIO LDL chol calc ([facility]) 66 mg/dL 0-99 Not Available [facility] Department [address] [place] [address], [address], 09/09/2023 23:07:46 09/07/19 24 09/09/2023 LIPID PANEL WITH LDL/H DL RATIO LDL/HDL ratio 0.6 0-3.[address] [facility] Department [address] [place] [address], [address], 09/09/2023 23:07:46 09/07/19 24 09/09/2023 COMP. METAB OLIC PANEL (14) glucose 119 mg/dL 70-99 above high normal Not Available [facility] Department [address] [place] [address], [address], 09/09/2023 23:07:46 09/07/19 24 09/09/2023 COMP. METAB OLIC PANEL (14) BUN 11 mg/dL 8-27 Not Available [facility] Department [address] [place] [address], [address], 09/09/2023 23:07:46 09/07/19 24 09/09/2023 COMP. METAB OLIC PANEL (14) creatinine 0.94 mg/dL 0.76-1 .27 Not Available [facility] Department [address] [place] [address], [address], 09/09/2023 23:07:46 09/07/19 24 09/09/2023 COMP. METAB OLIC PANEL (14) eGFR 93 >=60 Units for eGFR value s are mL/mi n/1.7 3 The eGFR Calcu latio n has not been valid ated for patie nts under the age of 18. If test resul ts are displ ayed for a patie nt under the age of 18, disre edison that value . Not Available [facility] Department [address] [place], [address], 09/09/2023 23:07:46 09/07/19 24 09/09/2023 COMP. METAB OLIC PANEL (14) BUN/creatini ne ratio 11 10-[address] [facility] Department [address] [place] [address], [address], 09/09/2023 23:07:46 09/07/19 24 09/09/2023 COMP. METAB OLIC PANEL (14) sodium 137 mmol/ L 134-14 4 Not Available [facility] Department [address] [place] [address], [address], 09/09/2023 23:07:46 09/07/19 24 09/09/2023 COMP. METAB OLIC PANEL (14) potassium 4.5 mmol/ L 3.5-5. 2 Not Available [facility] Department [address] [place] [address], [address], 09/09/2023 23:07:46 09/07/19 24 09/09/2023 COMP. METAB OLIC PANEL (14) chloride 90 mmol/ L 96-106 below low normal Not Available [facility] Department [address] [place] [address], [address], 09/09/2023 23:07:46 09/07/19 24 09/09/2023 COMP. METAB OLIC PANEL (14) carbon dioxide, total 26 mmol/ L 20-29 Not Available [facility] Department [address] [place], [address], 09/09/2023 23:07:46 09/07/19 24 09/09/2023 COMP. METAB OLIC PANEL (14) calcium 10.3 mg/dL 8.6-10 .2 above high normal Not Available [facility] Department [address] [place] [address], [address], 09/09/2023 23:07:46 09/07/19 24 09/09/2023 COMP. METAB OLIC PANEL (14) protein, total 7.8 g/dL 6.0-8. 5 Not Available [facility] Department [address] [place] [address], [address], 09/09/2023 23:07:46 09/07/19 24 09/09/2023 COMP. METAB OLIC PANEL (14) albumin 5.1 g/dL 3.8-4. 9 above high normal Not Available [facility] Department [address] [place] [address], [address], 09/09/2023 23:07:46 09/07/19 24 09/09/2023 COMP. METAB OLIC PANEL (14) globulin, total 2.7 g/dL 1.5-4. 5 Not Available [facility] Department [address] [place] [address], [address], 09/09/2023 23:07:46 09/07/19 24 09/09/2023 COMP. METAB OLIC PANEL (14) A/G ratio 2.0 1.2-2. 2 Not Available [facility] Department [address] [place], [address], 09/09/2023 23:07:46 09/07/19 24 09/09/2023 COMP. METAB OLIC PANEL (14) bilirubin, total 1.2 mg/dL 0.0-1. 2 Not Available [facility] [address] [place] [address], [id number], 09/09/2023 23:07:46 09/07/19 24 09/09/2023 COMP. METAB OLIC PANEL (14) alkaline phosphatase 103 IU/L 44-121 Not Available [facility] Department [address] [place], [address], 09/09/2023 23:07:46 09/07/19 24 09/09/2023 COMP. METAB OLIC PANEL (14) AST (SGOT) 89 IU/L 0-40 above high normal Not Available [facility] [address] [place], [address], 09/09/2023 23:07:46 09/07/19 24 09/09/2023 COMP. METAB OLIC PANEL (14) ALT (SGPT) 76 IU/L 0-44 above high normal Not Available [facility] [address] [place], [address], 09/09/2023 23:07:46 09/07/19 24 09/09/2023 CBC WITH DIFFE RENTI AL/PL ATELE T WBC 5.6 x10e3 /uL 3.4-10 .8 Not Available [facility] [address] [place], [address], 09/09/2023 23:07:47 09/07/19 24 09/09/2023 CBC WITH DIFFE RENTI AL/PL ATELE T RBC 3.92 x10e6 /uL 4.14-5 .80 below low normal Not Available [facility] [address] [place], [address], 09/09/2023 23:07:47 09/07/19 24 09/09/2023 CBC WITH DIFFE RENTI AL/PL ATELE T hemoglobin 15.1 g/dL 13.0-1 7.7 Not Available [facility] [address] [place], [address], 09/09/2023 23:07:47 09/07/19 24 09/09/2023 CBC WITH DIFFE RENTI AL/PL ATELE T hematocrit 48.3 % 37.5-5 1.0 Not Available [facility] [address] [place], [address], 09/09/2023 23:07:47 09/07/19 24 09/09/2023 CBC WITH DIFFE RENTI AL/PL ATELE T MCV 123 fL 79-97 above high normal Not Available [facility] [address] [place], [address], 09/09/2023 23:07:47 09/07/19 24 09/09/2023 CBC WITH DIFFE RENTI AL/PL ATELE T MCH 38.5 pg 26.6-3 3.0 above high normal Not Available [facility] [address] [place], [address], 09/09/2023 23:07:47 09/07/19 24 09/09/2023 CBC WITH DIFFE RENTI AL/PL ATELE T MCHC 31.3 g/dL 31.5-3 5.7 below low normal Not Available [facility] [address] [place], [address], 09/09/2023 23:07:47 09/07/19 24 09/09/2023 CBC WITH DIFFE RENTI AL/PL ATELE T RDW 17.0 % 11.5-1 4.5 above high normal Not Available [facility] [address] [place], [address], 09/09/2023 23:07:47 09/07/19 24 09/09/2023 CBC WITH DIFFE RENTI AL/PL ATELE T platelets 115 x10e3 /uL 150-45 0 below low normal Not Available [facility] [address] [place], [address], 09/09/2023 23:07:47 09/07/19 24 09/09/2023 CBC WITH DIFFE RENTI AL/PL ATELE T neutrophils 46 % notest b. Not Available [facility] [address] [place], [address], 09/09/2023 23:07:47 09/07/19 24 09/09/2023 CBC WITH DIFFE RENTI AL/PL ATELE T lymphs 44 % notest b. Not Available [facility] [address] [place], [address], 09/09/2023 23:07:47 06/18/20 24 09/09/2023 CBC WITH DIFFE RENTI AL/PL ATELE T monocytes 7 % notest b. Not Available [facility] [address] [place], [address], 09/09/2023 23:07:47 09/07/19 24 09/09/2023 CBC WITH DIFFE RENTI AL/PL ATELE T eos 1 % notest b. Not Available [facility] [address] [place], [address], 09/09/2023 23:07:47 09/07/19 24 09/09/2023 CBC WITH DIFFE RENTI AL/PL ATELE T basos 1 % notest b. Not Available [facility] [address] [place] [address], [address], 09/09/2023 23:07:47 09/07/19 24 09/09/2023 CBC WITH DIFFE RENTI AL/PL ATELE T neutrophils (absolute) 2.6 x10e3 /uL 1.4-7. 0 Not Available [facility] [address] [place], [address], 09/09/2023 23:07:47 09/07/19 24 09/09/2023 CBC WITH DIFFE RENTI AL/PL ATELE T lymphs (absolute) 2.4 x10e3 /uL 0.7-3. 1 Not Available [facility] [address] [place], [address], 09/09/2023 23:07:47 09/07/19 24 09/09/2023 CBC WITH DIFFE RENTI AL/PL ATELE T monocytes(ab solute) 0.4 x10e3 /uL 0.1-0. 9 Not Available [facility] [address] [place], [address], 09/09/2023 23:07:47 09/07/19 24 09/09/2023 CBC WITH DIFFE RENTI AL/PL ATELE T eos (absolute) 0.1 x10e3 /uL 0.0-0. 4 Not Available [facility] [address] [place] [address], [address], 09/09/2023 23:07:47 09/07/19 24 09/09/2023 CBC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
--- OUTSIDE RECORDS SUMMARY | 2024-05-03 11:06 | XMS_ITS | Clinical Summary ---
Author Organization [facility] Address [address] [place] [address] Phone Care Team Providers Care Photovoltaic Fabrication Technician Name Role Phone Neeta Chao MD Primary [...] 119 10/07/2015 2:55 PM CDT Temperature 36.9 C (98.5 F) 10/07/2015 2:55 PM CDT Respiratory Rate 18 10/07/2015 2:55 PM CDT [...] age to complete this topic Insurance MEDICAID [place] Care Teams Photovoltaic Fabrication Technician Relationship Specialty Start Date End Date Alyssag Neeta Grant MD [address] [place] [address] [address] [place] [address] PCP - General Family Medicine 09/30/17
== END 2024-05-03 10:06 | disposition home or self-care (01) ==
PROVIDERS: PCP Internal Medicine; Visit Provider Anesthesiology Pain Medicine
DX: M48.062 Spinal stenosis, lumbar region with neurogenic claudication (principal); S20.351A Superficial foreign body of right front wall of thorax, initial encounter; X58.XXXA Exposure to other specified factors, initial encounter; M47.27 Other spondylosis with radiculopathy, lumbosacral region
CPT/HCPCS: 72148; 74018

== ENCOUNTER 2024-10-04 02:42 | Day surgery (SDC) | payer OTHER, MEDICAID, SELFPAY ==
[2024-10-03 08:48] VITALS: BMI 20.7
--- NOTE | 2024-10-03 09:11 | PC.NURSE ---
Report to the Outpatient Waiting Room, entrance under the green pavilion located off [facility], at time _0700 on date _10/04/24 . Planned Procedure Time: __0900 .? Time changes happen often and if your time is changed the preop area will call you the afternoon before. - You and your visitor will be asked to self-screen and do not enter if you have any COVID symptoms. Please call surgeon if you need to reschedule. - A mask is optional within the hospital at this time. Patients may have clear liquids (water, carbonated beverages, clear teas, apple juice) until *8 hours prior to surgery with a maximum of 20 ounces. - No food from midnight until time of surgery and no smoking, or chewing tobacco (or any form of nicotine). No chewing gum, candy or mints. - Infants may have breast milk until 4 hours before surgery, formula 6 hours prior to surgery. - Children will be allowed to drink immediately following surgery.? If applicable, please bring a bottle or sippy cup to assist with drinking. Juice, water, soda, and popsicles are readily available.? For infants on formula, please bring formula the day of surgery.? Pacifiers are allowed. Take only the following medications with a SIP of water on the morning of surgery: __Metoprolol, Lyrica, Tylenol DO NOT STOP ANY OF YOUR OTHER PRESCRIPTION MEDICATIONS PRIOR TO SURGERY EXCEPT THE FOLLOWING Hold all vitamins and supplements for 3 days per anesthesiologist. Medications to discontinue per physician ___N/A Date to take last dose____N/A Please no make-up, nail [place] islander, hairspray, perfume, deodorant, or body powder the day of surgery.? No jewelry (including any body piercings) or valuables the day of surgery, leave them at home.? Please take a shower or bath the night before, or the morning of, surgery with an antibacterial soap.? Wear comfortable, loose fitting clothing.? Children are encouraged to wear pajamas. - Jewelry must be removed prior to entering the operating room.? Rings and piercings that are not removed may be cut off. - The hospital will not accept responsibility for valuables.? - Please leave all valuables, including medications, at home the day of surgery. If you are going home after surgery, a licensed boom truck driver must drive you home.? - NO public transportation without another adult if you receive anesthesia. - We recommend that an adult stay with you for 24 hours following discharge. - We also recommend that you do not drive, make important decision, drink alcoholic beverages, or take any drugs that were not prescribed by your health care provider for at least 24 hours after your discharge time. For Pediatric surgeries, we recommend two adults accompany the child home. Follow any additional instructions given to you from your surgeon. Telephone instructions given to __Bruce and asked if any additional questions and then verbalized understanding. Patient advised to call surgeon office or pre surgery nurse liaison [phone] if any additional questions.
[2024-10-04] VITALS (7 sets, daily range): BP systolic 113–160; BP diastolic 57–93; PULSE 88–124; RESP 14–18; TEMP 36.2–36.6; O2SAT 95–100
--- OUTSIDE RECORDS SUMMARY | 2024-10-04 02:48 | XMS_ITS | Clinical Summary ---
Author Organization [facility] Address [address] [place] [address] Phone Care Team Providers Care Clock Smith Name Role Phone Neeta Chao MD Primary [...] 2:55 PM CDT Height 177.8 cm (5' 10) 10/07/2015 2:55 PM CDT Body Mass Index [...] age to complete this topic Insurance MEDICAID [place] Care Teams Clock Smith Relationship Specialty Start Date End Date Alyssag Neeta Grant MD [address] [place] [address] [address] [place] [address] PCP - General Family Medicine 09/30/17
--- OUTSIDE RECORDS SUMMARY | 2024-10-04 02:48 | XMS_ITS | Data Portability ---
Author Organization [facility] [place] [facility] Address [address] [place] [address] Care Team Providers Care Registrar Museum Name Role Phone ELO BRYSON Primary Care Provider [phone] Assessment No assessment recorded. Plan of Treatment Reminders Order Date Submit Date Provider Last Modified By Organization Details Last Modified Time Details Appointments None recorded. Lab CMP, serum or plasma 2023 024 LIBORIO Rausch, [address], [place], [address], 4 23:07:46 lipid panel, serum 2023 024 LIBORIO Rausch, [address], [place], [address], 4 23:07:46 CBC w/ auto diff 2023 024 LIBORIO Rausch, [address], [place], [address], 4 23:07:47 TSH + free T4, serum 2023 024 LIBORIO Rausch, [address], [place], [address], 4 15:19:52 HbA1c (hemoglobin A1c), blood 2023 024 LIBORIO Rausch, [address], [place], [address], 4 15:19:52 BNP (B-type natriuretic peptide), serum or plasma 2023 024 [facility], [address] [facility] [facility] [address], [address], [place], [address], 4 16:14:54 inflammatio n panel, serum or plasma 2022 023 [facility], [address], [address], [place], [address], 3 12:34:30 CBC w/ auto diff 2022 023 [email or web address] [facility], [address] [facility], [address], [place], [address], 3 12:34:30 Referral pain management referral 2022 023 [facility], [address], [place], [address], 3 16:44:41 Procedures None recorded. Surgeries None recorded. Imaging XR, lumbosacral spine, 2 or 3 view 2023 024 [id number] [facility] (Rad), [address] [place], [address], 4 08:19:10 LDCT, chest, for lung cancer screening 2023 024 [facility] (Im[facility]), [address] [place], [address], 4 16:17:44 XR, knee, 3 view 2023 024 [facility] (Im[facility]), [address] [place], [address], 4 16:05:26 MRI, lumbar spine, w/o contrast 2022 023 [facility]), [address] [place], [address], 3 13:07:58 Medication Orders pregabalin 200 mg capsule 2023 024 [facility] #[id number], [address], [place], [id number], 4 15:56:15 metoprolol tartrate 25 mg tablet 2023 024 [facility] #[id number], [address] [place], [id number], 4 15:32:33 pregabalin 100 mg capsule 2022 023 [facility] #[id number], [address], [place], [id number], 4 13:04:50 Patient TargetsNo targets recorded. Patient InstructionsNo instructions recorded. Reason for Referral Pain Management Referral for Chronic pain Referring Physician: Elo Bryson, Family Medicine, Encounter Date: 07/29/2022 Results Created Date Observation Date Name Description Value Unit Range Abnormal Flag Note LastModifiedBy Organization Detail LastModifiedTime 07/02/1907/01/2022 LIPID PANEL WITH LDL/H DL RATIO cholesterol, total 190.3 mg/dL 140.0- 200.[address] [facility] Department [address] [place], [address], 07/01/2022 20:09:31 07/02/19 23 07/01/2022 LIPID PANEL WITH LDL/H DL RATIO triglyceride s 82 mg/dL <=150 Not Available [facility] Department [address] [place], [address], 07/01/2022 20:09:31 07/02/19 23 07/01/2022 LIPID PANEL WITH LDL/H DL RATIO HDL cholesterol 111.1 mg/dL 40.0-1 00.0 above high normal Not Available [facility] Department [address] [place], [address], 07/01/2022 20:09:31 07/02/19 23 07/01/2022 LIPID PANEL WITH LDL/H DL RATIO VLDL cholesterol kendra 16.40 mg/dL 5.00-[address] [facility] Department [address] [place], [address], 07/01/2022 20:09:31 07/02/19 23 07/01/2022 LIPID PANEL WITH LDL/H DL RATIO LDL chol calc ([facility]) 64.7 Not Available [facility] Department [address] [place], [address], 07/01/2022 20:09:31 07/02/19 23 07/01/2022 LIPID PANEL WITH LDL/H DL RATIO LDL/HDL ratio 0.6 Not Available [facility] Department [address] [place], [address], 07/01/2022 20:09:31 07/02/19 23 07/01/2022 COMP. METAB OLIC PANEL (14) glucose 87 mg/dL 65-99 ANION GP 25.0 mmol/ L N OSMOL 275.0 mOsM/ L N REFER ENCE RANGE : 275.0 -301. [address] [facility] Department [address] [place], [address], 07/01/2022 20:09:32 07/02/19 23 07/01/2022 COMP. METAB OLIC PANEL (14) BUN 7 mg/dL 8-26 below low normal Not Available [facility] Department [address] [place], [address], 07/01/2022 20:09:32 07/02/19 23 07/01/2022 COMP. METAB OLIC PANEL (14) creatinine 0.66 mg/dL 0.50-[address] [facility] Department [address] [place], [address], 07/01/2022 20:09:32 07/02/19 23 07/01/2022 COMP. METAB OLIC PANEL (14) eGFR 108 mL/mi n/1.7 3 >=[address] [facility] Department [address] [place], [address], 07/01/2022 20:09:32 07/02/19 23 07/01/2022 COMP. METAB OLIC PANEL (14) BUN/creatini ne ratio 10.6 Not Available [facility] Department [address] [place], [address], 07/01/2022 20:09:32 07/02/19 23 07/01/2022 COMP. METAB OLIC PANEL (14) sodium 139.0 mmol/ L 136.0- 144.[address] [facility] Department [address] [place], [address], 07/01/2022 20:09:32 07/02/19 23 07/01/2022 COMP. METAB OLIC PANEL (14) potassium 4.4 mmol/ L 3.5-5. [address] [facility] Department [address] [place] [address], [address], 07/01/2022 20:09:32 07/02/19 23 07/01/2022 COMP. METAB OLIC PANEL (14) chloride 99 mmol/ l 101-11 1 below low normal Not Available [facility] Department [address] [place], [address], 07/01/2022 20:09:32 07/02/19 23 07/01/2022 COMP. METAB OLIC PANEL (14) carbon dioxide, total 20.0 mmol/ L 21.0-3 2.0 below low normal Not Available [facility] Department [address] [place] [address], [address], 07/01/2022 20:09:32 07/02/19 23 07/01/2022 COMP. METAB OLIC PANEL (14) calcium 9.9 mg/dL 8.2-[address] [facility] Department [address] [place], [address], 07/01/2022 20:09:32 07/02/19 23 07/01/2022 COMP. METAB OLIC PANEL (14) protein, total 7.9 g/dL 6.7-8. [address] [facility] Department [address] [place] [address], [address], 07/01/2022 20:09:32 07/02/19 23 07/01/2022 COMP. METAB OLIC PANEL (14) albumin 5.0 g/dL 3.5-5. [address] [facility] Department [address] [place] [address], [address], 07/01/2022 20:09:32 07/02/19 23 07/01/2022 COMP. METAB OLIC PANEL (14) globulin, total 2.9 g/dL 1.5-4. [address] [facility] Department [address] [place], [address], 07/01/2022 20:09:32 07/02/19 23 07/01/2022 COMP. METAB OLIC PANEL (14) A/G ratio 1.7 Not Available [facility] Department [address] [place], [address], 07/01/2022 20:09:32 07/02/19 23 07/01/2022 COMP. METAB OLIC PANEL (14) bilirubin, total 0.7 mg/dL 0.0-1. [address] [facility] Department [address] [place], [address], 07/01/2022 20:09:32 07/02/19 23 07/01/2022 COMP. METAB OLIC PANEL (14) alkaline phosphatase 99.4 IU/L 42.0-[address] [facility] Department [address] [place], [address], 07/01/2022 20:09:32 07/02/19 23 07/01/2022 COMP. METAB OLIC PANEL (14) AST (SGOT) 30.3 U/L 10.0-[address] [facility] Department [address] [place], [address], 07/01/2022 20:09:32 07/02/19 23 07/01/2022 COMP. METAB OLIC PANEL (14) ALT (SGPT) 21.0 U/L 10.0-[address] [facility] Department [address] [place], [address], 07/01/2022 20:09:32 07/02/19 23 07/01/2022 CBC WITH DIFFE RENTI AL/PL ATELE T WBC 5.8 K/uL 3.4-[address] [facility] Department [address] [place], [address], 07/01/2022 20:09:32 07/02/19 23 07/01/2022 CBC WITH DIFFE RENTI AL/PL ATELE T RBC 4.4 M/uL 4.5-6. 3 below low normal Not Available [facility] Department [address] [place], [address], 07/01/2022 20:09:32 07/02/19 23 07/01/2022 CBC WITH DIFFE RENTI AL/PL ATELE T hemoglobin 15.6 g/dL 13.5-[address] [facility] Department [address] [place], [address], 07/01/2022 20:09:32 07/02/19 23 07/01/2022 CBC WITH DIFFE RENTI AL/PL ATELE T hematocrit 44.2 % 40.0-[address] [facility] Department [address] [place], [address], 07/01/2022 20:09:32 07/02/19 23 07/01/2022 CBC WITH DIFFE RENTI AL/PL ATELE T MCV 101 fL 80-95 above high normal Not Available [facility] Department [address] [place], [address], 07/01/2022 20:09:32 07/02/19 23 07/01/2022 CBC WITH DIFFE RENTI AL/PL ATELE T MCH 36 pg 27-32 above high normal Not Available [facility] Department [address] [place], [address], 07/01/2022 20:09:32 07/02/19 23 07/01/2022 CBC WITH DIFFE RENTI AL/PL ATELE T MCHC 35 g/dL 32-[address] [facility] Department [address] [place], [address], 07/01/2022 20:09:32 07/02/19 23 07/01/2022 CBC WITH DIFFE RENTI AL/PL ATELE T RDW 14.1 % 11.5-[address] [facility] Department [address] [place], [address], 07/01/2022 20:09:32 07/02/19 23 07/01/2022 CBC WITH DIFFE RENTI AL/PL ATELE T platelets 207 K/uL 155-37 9 MPV 9.0 FL 8.9-[address] [facility] Department [address] [place], [address], 07/01/2022 20:09:32 07/02/19 23 07/01/2022 CBC WITH DIFFE RENTI AL/PL ATELE T neutrophils 30.2 % 40.0-7 4.0 below low normal Not Available [facility] Department [address] [place], [address], 07/01/2022 20:09:32 07/02/19 23 07/01/2022 CBC WITH DIFFE RENTI AL/PL ATELE T lymphs 60.0 % 14.0-4 6.0 above high normal Not Available [facility] Department [address] [place], [address], 07/01/2022 20:09:32 07/02/19 23 07/01/2022 CBC WITH DIFFE RENTI AL/PL ATELE T monocytes 6.2 % 4.0-[address] [facility] Department [address] [place], [address], 07/01/2022 20:09:32 07/02/19 23 07/01/2022 CBC WITH DIFFE RENTI AL/PL ATELE T eos 2 % 0-[address] [facility] Department [address] [place], [address], 07/01/2022 20:09:32 07/02/19 23 07/01/2022 CBC WITH DIFFE RENTI AL/PL ATELE T basos 1.6 % 0.0-1. 0 above high normal Not Available [facility] Department [address] [place], [address], 07/01/2022 20:09:32 07/02/19 23 07/01/2022 CBC WITH DIFFE RENTI AL/PL ATELE T neutrophils (absolute) 1.8 K/uL 1.4-7. [address] [facility] Department [address] [place], [address], 07/01/2022 20:09:32 07/02/19 23 07/01/2022 CBC WITH DIFFE RENTI AL/PL ATELE T lymphs (absolute) 3.5 K/uL 0.7-3. 1 above high normal Not Available [facility] Department [address] [place], [address], 07/01/2022 20:09:32 07/02/19 23 07/01/2022 CBC WITH DIFFE RENTI AL/PL ATELE T monocytes(ab solute) 0.4 K/uL 0.1-0. [address] [facility] Department [address] [place], [address], 07/01/2022 20:09:32 07/02/19 23 07/01/2022 CBC WITH DIFFE RENTI AL/PL ATELE T eos (absolute) 0.1 K/uL 0.0-0. [address] [facility] Department [address] [place], [address], 07/01/2022 20:09:32 07/02/19 23 07/01/2022 CBC WITH DIFFE RENTI AL/PL ATELE T baso (absolute) 0.1 K/uL 0.0-0. [address] [facility] Department [address] [place], [address], 07/01/2022 20:09:32 07/02/19 23 07/01/2022 CBC WITH DIFFE RENTI AL/PL ATELE T immature granulocytes 0.3 % Not Available [facility] Department [address] [place], [address], 07/01/2022 20:09:32 07/02/19 23 07/01/2022 CBC WITH DIFFE RENTI AL/PL ATELE T immature grans (abs) 0.0 K/uL Not Available [facility] Department [address] [place], [address], 07/01/2022 20:09:32 07/02/19 23 07/01/2022 CBC WITH DIFFE RENTI AL/PL ATELE T NRBC 0 % Not Available [facility] Department [address] [place], [address], 07/01/2022 20:09:32 07/02/19 23 07/02/2022 TSH+F REE T4 TSH 1.620 uIU/m L 0.450- 4.500 Not Available [facility] ([facility]) [address] [facility], [place], [address], 07/02/2022 08:25:49 07/02/19 23 07/02/2022 TSH+F REE T4 T4,free(dire ct) 1.36 NG/dL 0.82-1 .77 Not Available [facility] ([facility]) [address] [facility], [place], [address], 07/02/2022 08:25:49 07/02/19 23 07/02/2022 HEMOG LOBIN A1C hemoglobin A1C 5.4 % 4.8-5. 6 Predi abete s: 5.7 - 6.4 Diabe sharmila: >6.4 Glyce chelsey contr ol for adult s with diabe sharmila: <7.0 Not Available [facility] ([facility]) [address] [facility], [place], [address], 07/02/2022 08:25:50 07/02/19 23 07/01/2022 KENNETHA L SONAM HINOJOSA AL neutrophils 20 % Not Available [facility] Department [address] [place] [address], [address], 07/01/2022 23:07:38 07/02/19 23 07/01/2022 KENNETHA L SONAM RIVASTI AL lymphs 75 % 14-46 above high normal Not Available [facility] Department [address] [place] [address], [address], 07/01/2022 23:07:38 07/02/19 23 07/01/2022 KENNETHA Heide HINOJOSA AL monocytes 2 % Not Available [facility] Department [address] [place], [address], 07/01/2022 23:07:38 07/02/19 23 07/01/2022 KENNETHA Heide HINOJOSA AL RBC comment Commen t RBCMO RP DORA L N Not Available [facility] Department [address] [place], [address], 07/01/2022 23:07:38 07/02/19 23 07/01/2022 MANUA L DIFFE RENTI AL platelet comment Commen t PLATE LETS DORA L N Not Available [facility] Department [address] [place], [address], 07/01/2022 23:07:38 07/30/19 23 07/29/2022 CBC WITH DIFFE RENTI AL/PL ATELE T WBC 5.4 K/uL 3.4-[address] [facility] Department [address] [place], [address], 07/29/2022 18:09:35 07/30/19 23 07/29/2022 CBC WITH DIFFE RENTI AL/PL ATELE T RBC 4.2 M/uL 4.5-6. 3 below low normal Not Available [facility] Department [address] [place], [address], 07/29/2022 18:09:35 07/30/19 23 07/29/2022 CBC WITH DIFFE RENTI AL/PL ATELE T hemoglobin 14.9 g/dL 13.5-[address] [facility] Department [address] [place], [address], 07/29/2022 18:09:35 07/30/19 23 07/29/2022 CBC WITH DIFFE RENTI AL/PL ATELE T hematocrit 42.7 % 40.0-[address] [facility] Department [address] [place], [address], 07/29/2022 18:09:35 07/30/19 23 07/29/2022 CBC WITH DIFFE RENTI AL/PL ATELE T MCV 103 fL 80-95 above high normal Not Available [facility] Department [address] [place], [address], 07/29/2022 18:09:35 07/30/19 23 07/29/2022 CBC WITH DIFFE RENTI AL/PL ATELE T MCH 36 pg 27-32 above high normal Not Available [facility] Department [address] [place], [address], 07/29/2022 18:09:35 07/30/19 23 07/29/2022 CBC WITH DIFFE RENTI AL/PL ATELE T MCHC 35 g/dL 32-[address] [facility] Department [address] [place], [address], 07/29/2022 18:09:35 07/30/1907/29/2022 CBC WITH DIFFE RENTI AL/PL ATELE T RDW 13.3 % 11.5-[address] [facility] Department [address] [place], [address], 07/29/2022 18:09:35 07/30/19 23 07/29/2022 CBC WITH DIFFE RENTI AL/PL ATELE T platelets 189 K/uL 155-37 9 MPV 9.4 FL 8.9-[address] [facility] Department [address] [place], [address], 07/29/2022 18:09:35 07/30/19 23 07/29/2022 CBC WITH DIFFE RENTI AL/PL ATELE T neutrophils 28.9 % 40.0-7 4.0 below low normal Not Available [facility] Department [address] [place], [address], 07/29/2022 18:09:35 07/30/1907/29/2022 CBC WITH DIFFE RENTI AL/PL ATELE T lymphs 57.5 % 14.0-4 6.0 above high normal Not Available [facility] Department [address] [place], [address], 07/29/2022 18:09:35 07/30/19 23 07/29/2022 CBC WITH DIFFE RENTI AL/PL ATELE T monocytes 9.3 % 4.0-[address] [facility] Department [address] [place], [address], 07/29/2022 18:09:35 07/30/19 23 07/29/2022 CBC WITH DIFFE RENTI AL/PL ATELE T eos 2 % 0-[address] [facility] Department [address] [place], [address], 07/29/2022 18:09:35 07/30/1907/29/2022 CBC WITH DIFFE RENTI AL/PL ATELE T basos 1.7 % 0.0-1. 0 above high normal Not Available [facility] Department [address] [place], [address], 07/29/2022 18:09:35 07/30/1907/29/2022 CBC WITH DIFFE RENTI AL/PL ATELE T neutrophils (absolute) 1.6 K/uL 1.4-7. [address] [facility] Department [address] [place], [address], 07/29/2022 18:09:35 07/30/1907/29/2022 CBC WITH DIFFE RENTI AL/PL ATELE T lymphs (absolute) 3.1 K/uL 0.7-3. [address] [facility] Department [address] [place], [address], 07/29/2022 18:09:35 07/30/1907/29/2022 CBC WITH DIFFE RENTI AL/PL ATELE T monocytes(ab solute) 0.5 K/uL 0.1-0. [address] [facility] Department [address] [place], [address], 07/29/2022 18:09:35 07/30/1907/29/2022 CBC WITH DIFFE RENTI AL/PL ATELE T eos (absolute) 0.1 K/uL 0.0-0. [address] [facility] Department [address] [place], [address], 07/29/2022 18:09:35 07/30/19 23 07/29/2022 CBC WITH DIFFE RENTI AL/PL ATELE T baso (absolute) 0.1 K/uL 0.0-0. [address] [facility] Department [address] [place], [address], 07/29/2022 18:09:35 07/30/19 23 07/29/2022 CBC WITH DIFFE RENTI AL/PL ATELE T immature granulocytes 0.9 % Not Available [facility] Department [address] [place], [address], 07/29/2022 18:09:35 07/30/19 23 07/29/2022 CBC WITH DIFFE RENTI AL/PL ATELE T immature grans (abs) 0.1 K/uL Not Available [facility] Department [address] [place], [address], 07/29/2022 18:09:35 07/30/19 23 07/29/2022 CBC WITH DIFFE RENTI AL/PL ATELE T NRBC 0 % Not Available [facility] Department [address] [place], [address], 07/29/2022 18:09:35 04/21/19 24 04/22/2023 B-TYP E [...] XP metho dolog y Not Available [facility] ([facility]) [address], [place], [address], 04/22/2023 16:14:54 04/21/19 24 04/22/2023 SPECI MEN STATU S REPOR T specimen status report TNP Test not perfo rmed. Gel barri er tube unsui table for test order ed. Test not perfo rmed. Attem pts to conta ct your facil ity were unsuc cessf ul. TEST: [id number] B-Typ e Natri ureti c Pepti de SPECI MEN REQUI RED:F ROZEN PLASM A TRANS NEHAL TUBE Not Available [facility] ([facility]) [address] [facility], [place], [address], 04/22/2023 16:14:54 09/07/19 24 09/09/2023 LIPID PANEL WITH LDL/H DL RATIO cholesterol, total 191 mg/dL 100-[address] [facility] Department [address] [place] [address], [address], 09/09/2023 23:07:46 09/07/19 24 09/09/2023 LIPID PANEL WITH LDL/H DL RATIO triglyceride s 108 mg/dL 0-149 Not Available [facility] Department [address] [place] [address], [address], 09/09/2023 23:07:46 09/07/19 24 09/09/2023 LIPID PANEL WITH LDL/H DL RATIO HDL cholesterol 120 mg/dL 40-[address] [facility] Department [address] [place], [address], 09/09/2023 23:07:46 09/07/19 24 09/09/2023 LIPID PANEL WITH LDL/H DL RATIO VLDL cholesterol kendra 22 mg/dL 5-40 Not Available [facility] Department [address] [place] [address], [address], 09/09/2023 23:07:46 09/07/19 24 09/09/2023 LIPID PANEL WITH LDL/H DL RATIO LDL chol calc ([facility]) 66 mg/dL 0-99 Not Available [facility] Department [address] [place] [address], [address], 09/09/2023 23:07:46 09/07/19 24 09/09/2023 LIPID PANEL WITH LDL/H DL RATIO LDL/HDL ratio 0.6 0-3.6 Not Available [facility] Department [address] [place] [address], [address], 09/09/2023 23:07:46 09/07/19 24 09/09/2023 COMP. METAB OLIC PANEL (14) glucose 119 mg/dL 70-99 above high normal Not Available [facility] Department [address] [place] [address], [address], 09/09/2023 23:07:46 09/07/19 24 09/09/2023 COMP. METAB OLIC PANEL (14) BUN 11 mg/dL 8-[address] [facility] Department [address] [place] [address], [address], 09/09/2023 23:07:46 09/07/19 24 09/09/2023 COMP. METAB OLIC PANEL (14) creatinine 0.94 mg/dL 0.76-[address] [facility] Department [address] [place] [address], [address], 09/09/2023 23:07:46 09/07/19 24 09/09/2023 COMP. METAB OLIC PANEL (14) eGFR 93 >=60 Units for eGFR value s are mL/mi n/1.7 3 The eGFR Calcu latio n has not been valid ated for patie nts under the age of 18. If test resul ts are displ ayed for a patie nt under the age of 18, disre edison that value . Not Available [facility] Department [address] [place] [address], [address], 09/09/2023 23:07:46 09/07/19 24 09/09/2023 COMP. METAB OLIC PANEL (14) BUN/creatini ne ratio 11 10-24 Not Available [facility] Department [address] [place], [address], 09/09/2023 23:07:46 09/07/19 24 09/09/2023 COMP. METAB OLIC PANEL (14) sodium 137 mmol/ L 134-[address] [facility] Department [address] [place] [address], [address], 09/09/2023 23:07:46 09/07/19 24 09/09/2023 COMP. METAB OLIC PANEL (14) potassium 4.5 mmol/ L 3.5-5. [address] [facility] Department [address] [place] [address], [address], 09/09/2023 23:07:46 09/07/19 24 09/09/2023 COMP. METAB OLIC PANEL (14) chloride 90 mmol/ L 96-106 below low normal Not Available [facility] Department [address] [place] [address], [address], 09/09/2023 23:07:46 09/07/19 24 09/09/2023 COMP. METAB OLIC PANEL (14) carbon dioxide, total 26 mmol/ L 20-[address] [facility] Department [address] [place] [address], [address], 09/09/2023 23:07:46 09/07/19 24 09/09/2023 COMP. METAB OLIC PANEL (14) calcium 10.3 mg/dL 8.6-10 .2 above high normal Not Available [facility] Department [address] [place] [address], [address], 09/09/2023 23:07:46 09/07/19 24 09/09/2023 COMP. METAB OLIC PANEL (14) protein, total 7.8 g/dL 6.0-8. [address] [facility] Department [address] [place] [address], [address], 09/09/2023 23:07:46 09/07/19 24 09/09/2023 COMP. METAB OLIC PANEL (14) albumin 5.1 g/dL 3.8-4. 9 above high normal Not Available [facility] Department [address] [place] [address], [address], 09/09/2023 23:07:46 09/07/19 24 09/09/2023 COMP. METAB OLIC PANEL (14) globulin, total 2.7 g/dL 1.5-4. [address] [facility] Department [address] [place] [address], [id number], 09/09/2023 23:07:46 09/07/19 24 09/09/2023 COMP. METAB OLIC PANEL (14) A/G ratio 2.0 1.2-2. [address] [facility] Department [address] [place] [address], [id number], 09/09/2023 23:07:46 09/07/19 24 09/09/2023 COMP. METAB OLIC PANEL (14) bilirubin, total 1.2 mg/dL 0.0-1. [address] [facility] Department [address] [place] [address], [id number], 09/09/2023 23:07:46 09/07/19 24 09/09/2023 COMP. METAB OLIC PANEL (14) alkaline phosphatase 103 IU/L 44-[address] [facility] Department [address] [place] [address], [id number], 09/09/2023 23:07:46 09/07/19 24 09/09/2023 COMP. METAB OLIC PANEL (14) AST (SGOT) 89 IU/L 0-40 above high normal Not Available [facility] Department [address] [place] [address], [id number], 09/09/2023 23:07:46 09/07/19 24 09/09/2023 COMP. METAB OLIC PANEL (14) ALT (SGPT) 76 IU/L 0-44 above high normal Not Available [facility] [address] [place], [id number], 09/09/2023 23:07:46 09/07/19 24 09/09/2023 CBC WITH DIFFE RENTI AL/PL ATELE T WBC 5.6 x10e3 /uL 3.4-[address] [facility] [address] [place], [id number], 09/09/2023 23:07:47 09/07/19 24 09/09/2023 CBC WITH DIFFE RENTI AL/PL ATELE T RBC 3.92 x10e6 /uL 4.14-5 .80 below low normal Not Available [facility] Department [address] [place], [address], 09/09/2023 23:07:47 09/07/19 24 09/09/2023 CBC WITH DIFFE RENTI AL/PL ATELE T hemoglobin 15.1 g/dL 13.0-[address] [facility] Department [address] [place], [address], 09/09/2023 23:07:47 09/07/19 24 09/09/2023 CBC WITH DIFFE RENTI AL/PL ATELE T hematocrit 48.3 % 37.5-[address] [facility] Department [address] [place], [address], 09/09/2023 23:07:47 09/07/19 24 09/09/2023 CBC WITH DIFFE RENTI AL/PL ATELE T MCV 123 fL 79-97 above high normal Not Available [facility] Department [address] [place], [address], 09/09/2023 23:07:47 09/07/19 24 09/09/2023 CBC WITH DIFFE RENTI AL/PL ATELE T MCH 38.5 pg 26.6-3 3.0 above high normal Not Available [facility] Department [address] [place], [address], 09/09/2023 23:07:47 09/07/19 24 09/09/2023 CBC WITH DIFFE RENTI AL/PL ATELE T MCHC 31.3 g/dL 31.5-3 5.7 below low normal Not Available [facility] Department [address] [place], [address], 09/09/2023 23:07:47 09/07/19 24 09/09/2023 CBC WITH DIFFE RENTI AL/PL ATELE T RDW 17.0 % 11.5-1 4.5 above high normal Not Available [facility] Department [address] [place], [address], 09/09/2023 23:07:47 09/07/19 24 09/09/2023 CBC WITH DIFFE RENTI AL/PL ATELE T platelets 115 x10e3 /uL 150-45 0 below low normal Not Available [facility] Department [address] [place], [address], 09/09/2023 23:07:47 09/07/19 24 09/09/2023 CBC WITH DIFFE RENTI AL/PL ATELE T neutrophils 46 % notest b. Not Available [facility] Department [address] [place], [address], 09/09/2023 23:07:47 09/07/19 24 09/09/2023 CBC WITH DIFFE RENTI AL/PL ATELE T lymphs 44 % notest b. Not Available [facility] Department [address] [place], [address], 09/09/2023 23:07:47 09/07/19 24 09/09/2023 CBC WITH DIFFE RENTI AL/PL ATELE T monocytes 7 % notest b. Not Available [facility] Department [address] [place], [address], 09/09/2023 23:07:47 09/07/19 24 09/09/2023 CBC WITH DIFFE RENTI AL/PL ATELE T eos 1 % notest b. Not Available [facility] Department [address] [place] [address], [address], 09/09/2023 23:07:47 09/07/19 24 09/09/2023 CBC WITH DIFFE RENTI AL/PL ATELE T basos 1 % notest b. Not Available [facility] Department [address] [place] [address], [address], 09/09/2023 23:07:47 09/07/19 24 09/09/2023 CBC WITH DIFFE RENTI AL/PL ATELE T neutrophils (absolute) 2.6 x10e3 /uL 1.4-7. [address] [facility] Department [address] [place] [address], [address], 09/09/2023 23:07:47 09/07/19 24 09/09/2023 CBC WITH DIFFE RENTI AL/PL ATELE T lymphs (absolute) 2.4 x10e3 /uL 0.7-3. [address] [facility] Department [address] [place] [address], [address], 09/09/2023 23:07:47 09/07/19 24 09/09/2023 CBC WITH DIFFE RENTI AL/PL ATELE T monocytes(ab solute) 0.4 x10e3 /uL 0.1-0. [address] [facility] Department [address] [place], [address], 09/09/2023 23:07:47 09/07/19 24 09/09/2023 CBC WITH DIFFE RENTI AL/PL ATELE T eos (absolute) 0.1 x10e3 /uL 0.0-0. [address] [facility] Department [address] [place] [address], [address], 09/09/2023 23:07:47 09/07/19 24 09/09/2023 CBC WITH DIFFE RENTI AL/PL ATELE T baso (absolute) 0.1 x10e3 /uL 0.0-0. [address]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
--- OUTSIDE RECORDS SUMMARY | 2024-10-04 02:48 | XMS_ITS | Patient Health Record ---
Author Organization [facility] Address [address] [facility] [address] [place] [address] Care Team Providers Care Desulphurizer Operator Name Role Phone Saurabh Grimes Primary Care [...] Problem Status W/U Status Risk Notes Problem 43070182 Other chronic pain (G89.29) Active confirmed Problem 009515395 Lumbago with sciatica, right side (M54.41) Active confirmed Problem 63166414 Anxiety (F41.9) Active confirmed Problem Localized, primary osteoarthritis of the pelvic region and thigh (857026624) Osteoarthritis of left hip (M16.12) Active confirmed Problem 47173691 Gait abnormality (R26.9) Active confirmed Problem 215166129 Pulmonary nodule (R91.1) Active confirmed Problem Lumbar spondylosis (433129238) Lumbar spondylosis (M47.816) Active confirmed Problem Localized, primary osteoarthritis of the pelvic region and thigh (745666523) Osteoarthritis of right hip (M16.11) Active confirmed Problem 542683781 Tobacco use disorder (F17.200) Active confirmed Problem Hyperlipidaemia (02378677) HLD (hyperlipidemia) (E78.5) Active confirmed Problem 72041865 Recurrent major depressive disorder, in full remission (F33.42) Active confirmed Problem 23559749 Primary hypertension (I10) Active confirmed Plan Of Treatment No Information Insurance Providers Payer Name Payer Address Payer Phone Subscriber Number Group Number Insured Name Patient Relationship to Insured Coverage Start Date Coverage End Date [facility] [address] [place] [address] [phone] [id number] RIO RADER Self - patient is the insured 0 Medical (General) History Surgical History Surgery Date(Month/Year)
--- NOTE | 2024-10-04 06:37 | PM.HPGS ---
History of Present Illness History of Present Illness Chief complaint: Loc swelling mass, head lump Narrative: Patient seen and examined in pre-operative holding area. No interval change in medical history or symptoms. Patient recalls previous discussion of benefits and alternatives to procedure. Continues to desire to proceed with excision left paranasal and five periorbital masses. Reviewed procedure, post-op expectations and risks including but not limited to bleeding, infection, undesireable cosmetic appearance, recurrence. I discussed the possible use of assistants and their participation in the case. Patient stated understanding and signed the consent form wishing to proceed. Review of Systems Review of Systems: All systems reviewed & are unremarkable except as noted in HPI and below PMFSH Past Medical History Medical History Colon cancer screening Tobacco abuse ETOH abuse Essential hypertension Neuropathic pain Social History Social History Smoking packs per day: 1 Smoking cigarettes per day: 20.0 Years smoked: 38 Smoking pack-years: 38.00 Smoking status: Current every day smoker Tobacco type: cigarettes Second hand tobacco smoke exposure: No Additional smoking assessment comments: Cutting down on smoking. Alcohol intake: current Drinks per week: 3 Alcohol use details: Was a heavy drinker for years, slowed down to 2-3 per week. Substance use: current Substance use type: marijuana Last use: 09/22/24 Do You Feel Safe in your Home?: Yes Lack of Transportation: No Lack of Food: Never True Current Housing: I Have Housing Concerned About Future Housing: No Difficulty Paying Gas/Electric Bills: No Difficulty Paying for Meds: No Currently Unemployed: No Education: Trade/Vocational Certificate Difficulty w/ Childcare or Family Care: No Living arrangements: with family Additional living arrangements comments: Brother Occupation/Education: unemployed Gender identity (if verbalized by the patient): Male Spiritual care concerns: No Agree to blood products: Yes Meds Home Medications and Allergies Home Medications ?Medication ?Instructions ?Recorded ?Confirmed ?Type acetaminophen 500 mg tablet 500 mg PO Q6H PRN Pain #90 tabs 05/06/21 10/04/24 Rx (Tylenol Extra Strength) metoprolol succinate 50 mg 50 mg PO DAILY #90 tabs 04/05/24 10/04/24 Rx tablet,extended release 24 hr pregabalin 200 mg capsule 200 mg PO TID PRN pain 10/03/24 10/04/24 History Allergies Allergy/AdvReac Type Severity Reaction Status Date / Time No Known Allergies Allergy Verified 10/04/24 07:41 Exam Narrative: unchanged Assessment and Plan Assessment and plan (1) Localized swelling, mass and lump, head: Code(s): R22.0 - Localized swelling, mass and lump, head Status: Acute Assessment and Plan: cont as above
--- NOTE | 2024-10-04 06:38 | P.OP_ITS ---
Procedure Note - Detailed Date of Procedure 10/04/24 Pre-op Diagnosis Loc swelling mass, head lump x6 Post-op Diagnosis Same Procedure Performed excision left nasal mass and five periorbital masses Surgeon Matthew Haas MD Propeller Mechanic mikala deigo pa-c Anesthesia MAC Description of Procedure Patient was seen in pre-op area where consent signed and sites marked. patient was taken back to the OR on stretcher in supine positiion. time out was performed with anesthesia, surgeon and staff agreeing on patient's name, site and surery to be performed. scds placed on lower extremities and inflated. antibiotics were given IV. after general anesthesia was administered the area was prepped and draped in sterile fashion. I injected 7cc 1%lido with epi and 0.5%marcaine mixture among the six operative sites. I took my attention first to the large left nasal mass. I proceeded with making an elliptical incision around the affected, thinned excess skin and suspected punctum through skin and dermis with a 15 blade scalpel. I extended skin resection proximally and distally to remove excess skin and account for dog ears. I proceeded with subctaneous dissection of the mass with 15 blade scalpel and littler scissors. I irrigated with normal saline and hemostasis with bovie cautery after mass was excised and proceeded with closure with 5-0 monocryl and 5-0 prolene. The mass measured 1.7cm and length of closure was 2.6cm Next I took my attention to the two left lateral periorbital masses. I proceeded with making an elliptical incision around the left superolateral periorbital affected, thinned excess skin and suspected punctum through skin and dermis with a 15 blade scalpel. I extended skin resection proximally and distally to remove excess skin and account for dog ears. I proceeded with subctaneous dissection of the mass with 15 blade scalpel and littler scissors. I irrigated with normal saline and hemostasis with bovie cautery after mass was excised and proceeded with closure with 5-0 monocryl and 5-0 prolene. The mass measured 8mm and length of closure was 1.2cm I proceeded with making an elliptical incision around the left inferolateral periorbital affected, thinned excess skin and suspected punctum through skin and dermis with a 15 blade scalpel. I extended skin resection proximally and distally to remove excess skin and account for dog ears. I proceeded with subctaneous dissection of the mass with 15 blade scalpel and littler scissors. I irrigated with normal saline and hemostasis with bovie cautery after mass was excised and proceeded with closure with 5-0 monocryl and 5-0 prolene. The mass measured 6mm and length of closure was 1.1cm Next I tooke my attention to the three right lateral periorbital masses. I proceeded with making an elliptical incision around the right superolateral periorbital affected, thinned excess skin and suspected punctum through skin and dermis with a 15 blade scalpel. I extended skin resection proximally and distally to remove excess skin and account for dog ears. I proceeded with subctaneous dissection of the mass with 15 blade scalpel and littler scissors. I irrigated with normal saline and hemostasis with bovie cautery after mass was excised and proceeded with closure with 5-0 monocryl and 5-0 prolene. The mass measured 4mm and length of closure was 1cm I proceeded with making an elliptical incision around the right mediolateral periorbital affected, thinned excess skin and suspected punctum through skin and dermis with a 15 blade scalpel. I extended skin resection proximally and distally to remove excess skin and account for dog ears. I proceeded with subctaneous dissection of the mass with 15 blade scalpel and littler scissors. I irrigated with normal saline and hemostasis with bovie cautery after mass was excised and proceeded with closure with 5-0 monocryl and 5-0 prolene. The mass measured 3mm and length of closure was 1cm I proceeded with making an elliptical incision around the right inferolateral periorbital affected, thinned excess skin and suspected punctum through skin and dermis with a 15 blade scalpel. I extended skin resection proximally and distally to remove excess skin and account for dog ears. I proceeded with subctaneous dissection of the mass with 15 blade scalpel and littler scissors. I irrigated with normal saline and hemostasis with bovie cautery after mass was excised and proceeded with closure with 5-0 monocryl and 5-0 prolene. The mass measured 3mm and length of closure was 1cm total length of closure for facial masses was 5.3cm and 2.6cm for the nasal complex repair A dressing of mastisol, steri-strip, 4x4, pressure dressing was applied. the patient was awaken from anesthesia and transferred to recovery in stable condition. Complications: none EBL: 3cc Disposition: patient tolerated well and going home later today mikala diego pa-c was essential for positioning, retraction, closure and dressing placement [facility] Billing Surgery - Charge Forward: Surgery Billing (-59(bill five times in addition to original ) [id number]. same for mikala adding )
--- NOTE | 2024-10-04 08:12 | WPDANESEPPF ---
Anes - Initial Pre Proc Eval Procedure: Operation Date: 10/04/24 09:00 Proposed Procedures p Excision Left Nasal Mass and Bilateral Periorbital Cyst Times Four - Matthew Haas MD Date/Time: 10/04/24 08:12 Surgeon: Matthew Haas MD Pre Op Diagnosis: Loc swelling mass, head lump Patient Data Age: 59 Gender: M Height: 1.78 m Weight: 61.8 kg Last Vital Signs Temp 97.1 F L 10/04/24 07:05 Pulse 124 H 10/04/24 07:05 Resp 18 10/04/24 07:05 BP 139/93 H 10/04/24 07:05 Pulse Ox 98 10/04/24 07:05 O2 Del Method Room Air 10/04/24 07:05 Allergies Allergy/AdvReac Type Severity Reaction Status Date / Time No Known Allergies Allergy Verified 10/04/24 07:41 Home Medications ?Medication ?Instructions ?Recorded ?Confirmed ?Type acetaminophen 500 mg tablet 500 mg PO Q6H PRN Pain #90 tabs 05/06/21 10/04/24 Rx (Tylenol Extra Strength) metoprolol succinate 50 mg 50 mg PO DAILY #90 tabs 04/05/24 10/04/24 Rx tablet,extended release 24 hr pregabalin 200 mg capsule 200 mg PO TID PRN pain 10/03/24 10/04/24 History Patient hx anesthesia problems: none Family hx anesthesia problems: none Results Review: All pre-operative results and documents have been reviewed as part of the pre-operative evaluation. [facility] Past Medical History Medical History Colon cancer screening Tobacco abuse ETOH abuse Essential hypertension Neuropathic pain Social History Social History Smoking packs per day: 1 Smoking cigarettes per day: 20.0 Years smoked: 38 Smoking pack-years: 38.00 Smoking status: Current every day smoker Tobacco type: cigarettes Second hand tobacco smoke exposure: No Additional smoking assessment comments: Cutting down on smoking. Alcohol intake: current Drinks per week: 3 Alcohol use details: Was a heavy drinker for years, slowed down to 2-3 per week. Substance use: current Substance use type: marijuana Last use: 09/22/24 Do You Feel Safe in your Home?: Yes Lack of Transportation: No Lack of Food: Never True Current Housing: I Have Housing Concerned About Future Housing: No Difficulty Paying Gas/Electric Bills: No Difficulty Paying for Meds: No Currently Unemployed: No Education: Trade/Vocational Certificate Difficulty w/ Childcare or Family Care: No Living arrangements: with family Additional living arrangements comments: Brother Occupation/Education: unemployed Gender identity (if verbalized by the patient): Male Spiritual care concerns: No Agree to blood products: Yes Anes - Eval Final PreProcedure Day of Procedure 10/04/24 08:12 Patient weight: normal Lungs: normal air movement Airway: Mallampati scale class II and special considerations Neurological: alert and oriented Last oral intake: >/= 8 hours ASA classification: III Emergent: no Anesthetic plan: proceed Anesthesia type and monitoring: general LMA and standard monitoring Results Review: All pre-operative results and documents have been reviewed as part of the pre-operative evaluation. HTN, Smoker, prev 1 ppd, now 2-3 cigs/day, one today prior to surgery, severe OA and uses cane for ambulation. Informed Consent: The patient's anesthetic plan and its attendant risks and benefits were discussed with the patient/family/POA. Questions were solicited and answers provided to the satisfaction of the patient/family/POA.
[2024-10-04] MEDS: LACTATED RINGERS 1,000 ML 30 ML IV CONT (08:17)
[2024-10-04] MEDS: ACETAMINOPHEN 500 MG TABLET 1000 MG PO (08:17)
[2024-10-04] MEDS: ceFAZolin 2 GM in SODIUM CHLORIDE 0.9% IV 50 ML 100 ML IVPB (09:04)
--- NOTE | 2024-10-04 09:16 | S_PTH ---
PATIENT: Torsten Pardo Jr. LOC: [facility] U#:[id number] AGE/SX: 59/M ROOM: RE10/04/[address]: Matthew Haas MD : 1965 BED: DIS: 10/04/2024 SPEC #: [id number] RECD: 10/04/24 10:53 STATUS: FRANCES REQ #: [id number] NADIR: 10/04/24 09:[address]: Matthew Haas DEPT: [facility] Surgical RECD BY: Maia Larry ENTERED: 10/04/24 10:55 SP TYPE: Surgical OTHR DR: Per June DO Tissues: A - Biopsy B - Biopsy C - Biopsy D - Biopsy E - Biopsy F - Biopsy Procedures: Hematoxylin and Eosin Stain Gross and Microscopic Level 4
[2024-10-04] MEDS: LIDO 1%/EPINEPHRINE 1:100,000 20 ML VIAL 10 ML INFILTRATE (09:27)
[2024-10-04] MEDS: fentaNYL CITRATE INJ (*CRX) 100 MCG/2 ML VIAL 25 MCG IV PUSH ×2 (10:10→10:18)
[2024-10-04] MEDS: oxyCODONE HCL (*CRX) 5 MG TAB IR PO (11:01)
--- NOTE | 2024-10-04 11:51 | SUR.PHASEII ---
1125 PATIENT DRESSED, WAITING FOR HIS RIDE.
== END 2024-10-04 11:50 | disposition home or self-care (01) ==
PROVIDERS: PCP Internal Medicine; Visit Provider Plastic Surgery
PROC: (CPT 13152; principal; 2024-10-04 09:00)
DX: L72.0 Epidermal cyst (principal); F17.210 Nicotine dependence, cigarettes, uncomplicated
CPT/HCPCS: 13152; 11442; 11441 ×2; 11440 ×3; 88305; J0690; A9270; J1100; J2003; J2004; J2250; J2405; J2704; J3010; J7120